=== PATIENT | female | born 1960 | race Caucasian/White ===

== ENCOUNTER 2020-09-28 13:34 | Outpatient (REF) | payer OTHER, SELFPAY ==
[2020-09-28 16:47] LABS: MANUAL DIFF FLAG NO
[2020-09-28 16:52] LABS: Basophils Percent Auto 0.6 % (0-2); Eosinophils Absolute Auto 0.1 X10*3/uL (0.0-0.4); Eosinophils Percent Auto 2.3 % (0-4); Hematocrit 38.3 % (37-47); Hemoglobin 12.6 g/dl (12.0-16.0); Imm Gran Abs Auto 0.01 X10*3/uL (0.00-0.03); Imm Gran Pct Auto 0.2 % (0.0-0.4); Lymphocytes Percent Auto 40.7 % (20-40); Mean Corpuscular HGB Conc 32.9 g/dl (31.0-35.0); Mean Corpuscular Hemoglobin 30.7 pg (27.0-33.0); Mean Corpuscular Volume 93.4 fL (80-98); Mean Platelet Volume 12.2 fL (9.4-12.3); Monocytes Absolute Auto 0.4 X10*3/uL (0.1-1.2); Monocytes Percent Auto 8.3 % (2-11); Neutrophils Absolute Auto 2.3 X10*3/uL (2.0-8.3); Neutrophils Percent Auto 47.9 % (45-73); Platelet Count 196 X10*3/uL (160-400); Red Cell Distribution Width 12.4 % (11.0-16.0); White Blood Count 4.8 X10*3/uL (4.8-10.8)
== END 2020-09-28 13:35 | disposition home or self-care (01) ==
LOC: HO.HMGCLDS 13:34
PROVIDERS: Visit Provider Internal Medicine Gastroenterology
DX: D72.819 Decreased white blood cell count, unspecified (principal)
CPT/HCPCS: 36415; 85025

== ENCOUNTER 2020-11-03 14:30 | Outpatient (REF) | payer OTHER, SELFPAY ==
[2020-11-03 16:30] LABS: MANUAL DIFF FLAG NO
[2020-11-03 16:34] LABS: Basophils Percent Auto 0.7 % (0-2); Eosinophils Absolute Auto 0.1 X10*3/uL (0.0-0.4); Eosinophils Percent Auto 1.2 % (0-4); Hematocrit 43.3 % (37-47); Imm Gran Abs Auto 0.01 X10*3/uL (0.00-0.03); Imm Gran Pct Auto 0.2 % (0.0-0.4); Lymphocytes Absolute Auto 2.2 X10*3/uL (1.2-4.9); Lymphocytes Percent Auto 39.6 % (20-40); Mean Corpuscular HGB Conc 32.3 g/dl (31.0-35.0); Mean Corpuscular Hemoglobin 30.3 pg (27.0-33.0); Mean Corpuscular Volume 93.7 fL (80-98); Mean Platelet Volume 11.8 fL (9.4-12.3); Monocytes Absolute Auto 0.4 X10*3/uL (0.1-1.2); Monocytes Percent Auto 6.9 % (2-11); Neutrophils Absolute Auto 2.9 X10*3/uL (2.0-8.3); Neutrophils Percent Auto 51.4 % (45-73); Platelet Count 241 X10*3/uL (160-400); Red Blood Count 4.62 X10*6/uL (4.20-5.50); Red Cell Distribution Width 12.3 % (11.0-16.0); White Blood Count 5.6 X10*3/uL (4.8-10.8)
[2020-11-03 16:46] LABS: Alanine Aminotransferase 24 U/L (0-31); Albumin Level 4.8 g/dL (3.5-5.0); Alkaline Phosphatase 71 U/L (39-117); Aspartate Amino Transferase 25 U/L (5-31); Bilirubin Direct 0.4 mg/dL (0.0-0.5); Bilirubin Total 1.2 mg/dL (0.0-1.0); Total Protein 7.8 g/dL (6.5-8.0)
[2020-11-12 02:17] LABS: JCV Antibody POSITIVE; JCV Index Value 0.93
== END 2020-11-03 14:31 | disposition home or self-care (01) ==
LOC: HO.HMGCLDS 14:30
PROVIDERS: PCP Nurse Practitioner Family; Visit Provider Psychiatry & Neurology Neurology
DX: G35 Multiple sclerosis (principal)
CPT/HCPCS: 36415; 80076; 85025; 86711

== ENCOUNTER → 2020-11-22 09:36 | Outpatient (BNVA) | payer OTHER, SELFPAY | PROVIDERS: PCP Nurse Practitioner Family; Visit Provider Internal Medicine Gastroenterology ==

== ENCOUNTER → 2021-05-23 13:01 | Outpatient (BNVA) | payer OTHER, SELFPAY | PROVIDERS: Referring Provider Hospitalist; Visit Provider Internal Medicine Gastroenterology | DX: K21.9 Gastro-esophageal reflux disease without esophagitis (principal); K59.09 Other constipation; R13.14 Dysphagia, pharyngoesophageal phase; G35 Multiple sclerosis ==

== ENCOUNTER → 2021-11-01 13:57 | Outpatient (BNVA) | payer OTHER, SELFPAY | PROVIDERS: PCP Family Medicine; Referring Provider Family Medicine; Visit Provider Internal Medicine Gastroenterology ==

== ENCOUNTER 2022-04-29 10:27 | Outpatient (REF) | payer OTHER, SELFPAY ==
[2022-04-29 10:49] LABS: MANUAL DIFF FLAG NO
[2022-04-29 11:08] LABS: Basophils Percent Auto 0.8 % (0-2); Eosinophils Absolute Auto 0.1 X10*3/uL (0.0-0.4); Eosinophils Percent Auto 2.3 % (0-4); Hematocrit 35.5 % (37.0-47.0); Hemoglobin 11.9 g/dl (12.0-16.0); Imm Gran Abs Auto 0.01 X10*3/uL (0.00-0.03); Imm Gran Pct Auto 0.2 % (0.0-0.4); Lymphocytes Percent Auto 20.7 % (20-40); Mean Corpuscular HGB Conc 33.5 g/dl (31.0-35.0); Mean Corpuscular Hemoglobin 30.2 pg (27.0-33.0); Mean Corpuscular Volume 90.1 fL (80.0-98.0); Mean Platelet Volume 11.2 fL (9.4-12.3); Monocytes Absolute Auto 0.6 X10*3/uL (0.1-1.2); Monocytes Percent Auto 12.9 % (2-11); Neutrophils Percent Auto 63.1 % (45-73); Platelet Count 189 X10*3/uL (160-400); Red Blood Count 3.94 X10*6/uL (4.20-5.50); Red Cell Distribution Width 12.3 % (11.0-16.0); White Blood Count 4.8 X10*3/uL (4.8-10.8)
[2022-04-29 11:57] LABS: Vitamin D 25-OH Total 20.7 ng/mL (>30)
[2022-04-29 14:20] LABS: Iron 38 mcg/dL (30-160); Percent Iron Saturation 12 % (15-50); Total Iron Binding Capacity 317 mcg/dL (228-428); Unsaturated Iron Binding 279 ug/dL
[2022-04-29 14:42] LABS: Ferritin 81 ng/mL (10-250)
[2022-05-01 08:49] LABS: Vitamin B12 247 pg/mL (200-900)
[2022-05-02 22:47] LABS: Zinc 56 mcg/dL (60-130)
== END 2022-04-29 10:28 | disposition home or self-care (01) ==
LOC: HO.LAB 10:27
PROVIDERS: Absent Provider Pediatrics; Visit Provider Internal Medicine Gastroenterology
DX: E53.8 Deficiency of other specified B group vitamins (principal); K21.9 Gastro-esophageal reflux disease without esophagitis; D64.9 Anemia, unspecified
CPT/HCPCS: 36415; 82306; 82607; 82728; 83540; 84630; 85025; 86003

== ENCOUNTER 2022-05-01 07:48 | Outpatient (REF) | payer OTHER, SELFPAY ==
[2022-05-01 12:21] LABS: Alanine Aminotransferase 10 U/L (0-31); Albumin Level 4.1 g/dL (3.5-5.0); Alkaline Phosphatase 61 U/L (39-117); Anion Gap 10 (12-20); Aspartate Amino Transferase 19 U/L (5-31); Bilirubin Total 0.6 mg/dL (0.0-1.0); Blood Urea Nitrogen 13 mg/dL (9-16); Calcium 9.2 mg/dL (8.4-10.2); Carbon Dioxide 29 mmol/L (22-29); Chloride 106 mmol/L (96-108); Cholesterol 207 mg/dL; Estimated Glomerular Filt Rate > 60; Glucose Fasting 93 mg/dL (60-99); HDL Cholesterol 62 mg/dL; LDL Cholesterol Calculated 124 mg/dl; Potassium 3.8 mmol/L (3.3-5.1); Sodium 141 mmol/L (135-145); Triglycerides 107 mg/dL
[2022-05-01 15:13] LABS: Reflex LDLD? No
== END 2022-05-01 07:49 | disposition home or self-care (01) ==
LOC: HO.HMGCLDS 07:48
PROVIDERS: PCP Nurse Practitioner Family; Visit Provider Internal Medicine Gastroenterology
DX: E53.8 Deficiency of other specified B group vitamins (principal); K21.9 Gastro-esophageal reflux disease without esophagitis
CPT/HCPCS: 36415; 80053; 80061

== ENCOUNTER 2023-04-13 14:07 | Outpatient (REF) | payer OTHER, SELFPAY ==
[2023-04-13 14:29] LABS: Hematocrit 32.3 % (37.0-47.0); Hemoglobin 10.5 g/dl (12.0-16.0); Mean Corpuscular HGB Conc 32.5 g/dl (31.0-35.0); Mean Corpuscular Hemoglobin 29.3 pg (27.0-33.0); Mean Corpuscular Volume 90.2 fL (80.0-98.0); Mean Platelet Volume 10.1 fL (9.4-12.3); Platelet Count 210 X10*3/uL (160-400); Red Blood Count 3.58 X10*6/uL (4.20-5.50); Red Cell Distribution Width 12.5 % (11.0-16.0); White Blood Count 5.9 X10*3/uL (4.8-10.8)
[2023-04-13 15:09] LABS: Estimated Glomerular Filt Rate 51
[2023-04-13 15:34] LABS: Vitamin B12 240 pg/mL (200-900); Vitamin D 25-OH Total 18.5 ng/mL (>30)
== END 2023-04-13 14:08 | disposition home or self-care (01) ==
LOC: HO.LAB 14:07
PROVIDERS: PCP Nurse Practitioner Family; Visit Provider Internal Medicine Gastroenterology
DX: D64.9 Anemia, unspecified (principal); E53.8 Deficiency of other specified B group vitamins; E55.9 Vitamin D deficiency, unspecified
CPT/HCPCS: 36415; 82306; 82565; 82607; 85027

== ENCOUNTER → 2023-04-19 08:28 | Outpatient (BNVA) | payer OTHER, SELFPAY | PROVIDERS: PCP Nurse Practitioner Family; Visit Provider Internal Medicine Gastroenterology ==

== ENCOUNTER 2023-10-11 07:55 | Outpatient (REF) | payer OTHER, SELFPAY ==
[2023-10-11 09:35] LABS: MANUAL DIFF FLAG NO
[2023-10-11 10:05] LABS: Basophils Absolute Auto 0.1 X10*3/uL (0.0-0.2); Basophils Percent Auto 0.9 % (0-2); Eosinophils Absolute Auto 0.2 X10*3/uL (0.0-0.4); Eosinophils Percent Auto 2.8 % (0-4); Hematocrit 34.2 % (37.0-47.0); Hemoglobin 11.5 g/dl (12.0-16.0); Imm Gran Abs Auto 0.02 X10*3/uL (0.00-0.03); Imm Gran Pct Auto 0.3 % (0.0-0.4); Lymphocytes Absolute Auto 1.6 X10*3/uL (1.2-4.9); Lymphocytes Percent Auto 24.4 % (20-40); Mean Corpuscular HGB Conc 33.6 g/dl (31.0-35.0); Mean Corpuscular Volume 89.3 fL (80.0-98.0); Mean Platelet Volume 12.2 fL (9.4-12.3); Monocytes Absolute Auto 0.6 X10*3/uL (0.1-1.2); Monocytes Percent Auto 9.5 % (2-11); Neutrophils Absolute Auto 4.1 x10*3/uL (2.0-8.3); Neutrophils Percent Auto 62.1 % (45-73); Platelet Count 210 X10*3/uL (160-400); Red Blood Count 3.83 X10*6/uL (4.20-5.50); Red Cell Distribution Width 12.7 % (11.0-16.0); White Blood Count 6.5 X10*3/uL (4.8-10.8)
[2023-10-11 10:54] LABS: Anion Gap 13 (12-20); Blood Urea Nitrogen 21 mg/dL (9-16); Carbon Dioxide 32 mmol/L (22-29); Chloride 102 mmol/L (96-108); Estimated Glomerular Filt Rate 29; Glucose Random 92 mg/dL (60-115); Iron 58 mcg/dL (30-160); Percent Iron Saturation 19 % (15-50); Potassium 3.4 mmol/L (3.3-5.1); Sodium 144 mmol/L (135-145); Total Iron Binding Capacity 300 mcg/dL (228-428); Unsaturated Iron Binding 242 ug/dL
[2023-10-11 10:59] LABS: Ferritin 113 ng/mL (10-250); TSH reflex Free T4 1.29 uIU/mL (0.32-4.0)
[2023-10-11 11:10] LABS: Vitamin B12 257 pg/mL (200-900)
== END 2023-10-11 07:56 | disposition home or self-care (01) ==
LOC: HO.LAB 07:55
PROVIDERS: PCP Family Medicine; Visit Provider Internal Medicine Gastroenterology
DX: D64.9 Anemia, unspecified (principal); R14.0 Abdominal distension (gaseous); K21.9 Gastro-esophageal reflux disease without esophagitis; K59.09 Other constipation; E53.8 Deficiency of other specified B group vitamins
CPT/HCPCS: 36415; 80048; 82607; 82728; 82746; 83540; 84443; 85025; 86160

== ENCOUNTER 2023-10-11 07:55 | Outpatient (AMB) | payer OTHER, SELFPAY ==
--- NOTE | 2023-10-11 08:01 | A.OFFVIS_ITS ---
Intake Vital Signs 10/11/23 08:11 Height 5 ft 1 in Weight 108 lb BMI 20.4 BP 120/56 L Blood Pressure Location Lt brachial Position Sitting Pulse 58 Intake Visit Reasons: gassy and burping Intake Note: atient follw up for gassy and burping. Patient cc: uncontrolled smelly gassy and denies any other GI issues. Bus Boy Required: No Accompanied by: Self / Same As Patient Allergies lansoprazole Allergy (Severe, Verified 10/11/23 08:00) Back Pain cefprozil [From Cefzil] Adverse Reaction (Mild, Verified 10/11/23 08:00) unknown cephalexin Adverse Reaction (Mild, Verified 10/11/23 08:00) stomach upset azithromycin Adverse Reaction (Unknown, Verified 10/11/23 08:00) stomach upset lisinopril Adverse Reaction (Unknown, Verified 10/11/23 08:00) cough HPI gassy and burping HPI Details GI CLINIC VISIT FOR THIS 63-YEAR-OLD FEMALE FOR FOLLOW-UP OF GERD AND DYSPHAGIA. Patient's Primary Care Physician Is Anam Tomas NP at [facility] and she sees Dr. Dong for her MS. Pt is followed by Cardiology for heart failure related to LBBB. Echocardiogram earlier this year showed EF of 35 to 40% Pt has been unable to tolerate several medications for heart failure. On 08/03/23 @ 18:24 Karla Alves Wrote To Karla Alves (2) Pt called: Complains of constipation and foul smelling flatulance, increased burping, nausea and right sided abdominal pain Has had a few bouts which resolve spontaneously. Lately either has constipation or loose stools I discussed option of trying senna and pt thinks she used it in the past and had some side effects. Pt advised to start taking probiotics ( align or Culturelle). She was advised to increase Miralax to twice a day If symptoms do not improve in 4-6 weeks, patient was advised to call the GI clinic to schedule a follow-up appointment. ?CHRONIC ILLNESSES:?GERD, MULTIPLE SCLEROSIS, HYPOCHOLESTEROLEMIA, Nicotine dependence, unspecified, uncomplicated, Caffeine dependence ?LABS IN [facility]:?01/18/19 NORMAL CBC WITH PLATELET COUNT OF 184, NORMAL CHEM PANEL AND LFTS ? VITAMIN B12 235 IN SEPTEMBER 2017 ?IMAGING STUDIES: 04/2014 Abd US was normal ? 04/2014 UGI showed: ? Small sliding hiatal hernia and gastroesophageal reflux. ?ENDOSCOPIC STUDIES: 12/30/19 EGD showed: ? ESOPHAGUS: Aperistaltic esophagus without stricture or ring. GE junction at 38 cms, small hiatla hernia 38 to 40 cms. ? No esophagitis. Irregular Z line - biopsied to check for Barretts. Bio psies showed reflux and negative for Alberts's. ? STOMACH: Mild diffuse gastric erythema. Biopsies were obtained from the antrum and body of the stomach. ? Decreased peristalsis noted in the stomach. Grade 2 flap valve on retroflexed examination of the cardia. ? Biopsies were negative for H Pylori. ? Plan: ? Continue present medications (Omeprazole at 10 mg PO every other day alternating with Pepcid every other day). Pt was unable to tolerate taking Omeprazole daily. Continues to have intermittent regurgitation. ? Schedule a Gastric Emptying Study to rule out Gastroparesis causing persistent GERD symptoms. ? Patient has an appointment on 01/19/20 in the GI Clinic with Karla Alves M.D ? Above findings were reviewed with the patient and handout on GERD was provided in the discharge area. ?01/2016 EGD AND COLONOSCOPY WERE PERFORMED BY DR. DIEGO: ? GENERAL IMPRESSION:Superficial gastritis. COMMENT:I raised a question of underlying altered motility in this patient. This may needfurther evaluation depending on persistence of symptoms when the patient is re-seen. PROCEDURE IN DETAIL:Digital rectal examination revealed no specific lesion. Video colonoscope wasintroduced without difficulty, it was navigated into the rectosigmoid, sigmoid, upinto the descending colon. At this juncture, there was moderate redun lita.Despite extrinsic pressure, there was still looping of the scope. The patient wasrepositioned on her back. Scope was readily advanced through proximal, descendingcolon, and transverse colon, ascending colon, down into the cecal cap. Appendicealorifice was seen, ileocecal valve was well seen. No mucosal abnormalities wereappreciated. The scope was slowly withdrawn. Good rotational views were had.Anorectal verge was clear. GENERAL IMPRESSION:There were a few minor diverticula noted. Otherwise, the examination was normal. PLAN:The patient will be re-seen in our office. Further evaluation as is appropriate. Repeat colon cancer screening in this individual would be approximately 7 years. ?TODAY'S VISIT Patient cc: uncontrolled smelly gassy and denies any other GI issues. Weekend of 07/28/23 she had several BMs with burping, bloating and gurgling, fatigue. Symptoms continued. Started taking Culturelle once a day which helped the gas and not the diarrhea. Unable to leave the house or stop culturelle Also has had some leakage - feels like colon is in a spasm Kept a log of BMs - days when she goes 4 times, or 6 times or upto 8 times - multiple small BMs without diarrhea. Saw the Neurologist who prescribed the Bentyl 20 mg and has not started taking it. Does not drink milk and no longer can drink coffee. Can have a slice of cheese a day Unable to eat anything till mid afternoon and has been eating less. Has dinner after 6 pm. She was eating ice cream all the time and has not been able to take it. PAST VISIT: Taking Omeprazole and feeling better. Can have uncontrollable gas. Switched to a new medication once a month (instead of every week) for MS Continues to have cardiac issues. Gained 2-3 lbs and has been using Lasix - every other day She was taking pepcid and having diarrhea Continues to have bloating and gas. Feels better in the afternoon. Thinks Avonex injection (takes on the weekend) is causing problems with her stomach and looking at other options with the Neurologist. Prescribed spironolactone 25 mg once a day by the hoop puncher and notes nausea. Taking mostly pepcid for the stomach and trying to work in the Omeprazole - was taking it every 3rd day. Seemed to hurt and not help. She is able to take furosemide without any stomach issues. Seeing a Cardiology PA at [facility] and diagnosed with heart failure. June, noted worsening SOB and dose of carvedilol was doubled BNP was elevated (641) and advised to take furosemide. Lab tests were reviewed - showed anemia - advised to start taking iron every other day. Increase to daily if no problems with constipation. Take MVI and Vitamin B12 Planning to work on taking a healthier diet. Baseline wt is 108. Taking 1/2 tablet of Pepcid daily - once in a while feels acid coming up in her chest. Stopped Omperazole since it was causing bad smelling gas. Resolved after she stopped taking Omeprazole Denies problems with anesthesia in the past, loud snoring or sleep apnea (has intermittent mild snoring). ? Denies major pulmonary problems. ? Denies known FH of colon polyps or colon cancer or GI malignancy. ? Mom had breast cancer and cardiac amyloidosis. ? Dad had skin cancer. Taking Omeprazole 10 mg every other day alternating with Pepcid or TUMs with adquate control of GERD symptoms Taking Miralax for constipation. Notes GI and urinary tracts are more sluggish. Has a BM daily. Feels full and unable to eat a lot at once. Wt is stable. Noted chest pains after her booster shot in 08/2021 for COVID (Moderna) Pt is followed by Dr Velasquezs, Water Valve Repairer at [facility] for Htn and Cardiomyopathy and has a FU appt in Dec, 2021. Continues to have intermittent trouble with chest tightness and shortness of breath. Takes an effort to do her regular chores and going to the grocery store. 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 Seen by Water Valve Repairer for chest pain and had a stress test which was negative. Cardiology evaluation with Echo, stress test. 04/05/21 Cardiac Cath - no stenosis EF was 35% on Echo Diagnosed with non-alcoholic cardiomyopathy - cardiac MRI was negative for amyloidosis (Mom of cardiac amyloidosis). EF was 41% Heart problems related to LBBB - she may need a pacemaker in the future. Denies ETOH use Metoprolol - caused stomach pain & diarrhea Carvedilol - taking at present - makes her feel sluggish, retain water and urinary problems Enteresta - started 2 days ago - had chest tightness and discontinued Blood pressure has usually been 130 ?PAST VISIT: hanging in there New medical issue which is ongoing. Happened while shoveling snow in Oct, 2020 - asthmatic symptoms. Being treated with 2 inhalers and a nasal spray. Tested negative for COVID. Had pulmonary testing at [facility] last week Tried Prevacid and noted back pain. Taking a combination of Omeprazole on alternate days with Pepcid GES results were reviewed with the patient?- [facility] History H/O cardiac catheterization History of endoscopy (12/30/19) Hx of endoscopy History of colonoscopy Family History Father History of heart attack Mother No problems noted. Social History Alcohol intake: never Review of Systems Const All systems reviewed & are unremarkable except as noted in HPI and below Physical Exam Vital Signs: Last Vital Signs Pulse 58 10/11/23 08:11 BP 120/56 L 10/11/23 08:11 BMI result Body Mass Index 20.4 Const General: healthy appearing and no acute distress Nutritional Appearance: average body habitus Orientation/consciousness: patient oriented x3 HEENT Head: Yes normal to inspection Ears: hearing grossly normal bilaterally Eyes Sclerae: sclerae normal Pupils: Equal, round and reactive pupils present Neck Neck: Yes normal visual inspection Chest Chest palpation & inspection: normal inspection of the chest Resp Effort & Inspection: normal respiratory effort Auscultation: clear to auscultation bilaterally Cardio Palpation: normal PMI Rate: regular rate Rhythm: regular rhythm Heart sounds: S1 normal heart sound present, S2 normal heart sound present and no murmurs GI Palpation (GI): Soft to palpation, nontender and No hepatosplenomegaly present Auscultation: normal bowel sounds Rectal Exam - Female: deferred Skin General skin exam: no rashes or lesions noted Neuro General: patient oriented x3, gait normal and moves all extremities Cranial nerves: Yes Equal, round and reactive pupils present Psych Appearance: grossly normal Mental Status: mental status grossly normal Assessment & Plan Assessment & Plan (1) Colon cancer screening: Comment: Colon[place] [address] Diego showed few minor diverticula noted. Otherwise, the examination was normal. Repeat colonoscopy was advised in 7 years - due 2022 (consider a stool cologuard test due to low EF of 35 - 40%) Code(s): Z12.11 - Encounter for screening for malignant neoplasm of colon (2) Anemia: Code(s): D64.9 - Anemia, unspecified (3) Chronic constipation: Code(s): K59.09 - Other constipation (4) Gastroesophageal reflux disease without esophagitis: Code(s): K21.9 - Gastro-esophageal reflux disease without esophagitis (5) Vitamin B12 deficiency: Code(s): E53.8 - Deficiency of other specified B group vitamins (6) Abdominal bloating: Code(s): R14.0 - Abdominal distension (gaseous) Plan 63 YF with GERD, MULTIPLE SCLEROSIS, HYPOCHOLESTEROLEMIA, Htn, Nicotine dependence, unspecified, uncomplicated, Caffeine dependence seen for evaluation dysphagia, regurgitation and constipation. Her symptoms suggest esophageal involvement with MS. Patient was advised a trial of low-dose omeprazole 10 mg daily to see if it would control her symptoms without causing dizziness. She was advised to add Pepcid at night if she continued to have symptoms despite above. 12/30/19 EGD showed a small hiatal hernia, an aperistaltic esophagus without stricture or ring. Esophageal biopsies showed reflux and were negative for Alberts's. STOMACH: Mild diffuse gastric erythema. Biopsies were obtained from the antrum and body of the stomach. Decreased peristalsis noted in the stomach. Biopsies were negative for H Pylori. A gastric emptying study was normal ruling out gastroparesis. She did well with omeprazole for several months and then noted recurrent dizzin ess. Patient tried switching to lansoprazole 15 mg every other day and was unable to tolerate due to back pain. She is taking omeprazole 10 mg every other day alternating with Pepcid 20 mg on alternate days. She takes Miralax once a day for constipation. 04/2023 Labs showed worsening anemia, normal Vitamin B12, low Vitamin D and mild Zinc deficiency. Pt will resume taking iron gummies (which she tolerated in the past) and otc Vitamin D. She was advised to take a MVI 3 times a week for Zinc deficiency. [place] [address] Diego showed few minor diverticula noted. Otherwise, the examination was normal. Repeat colonoscopy was advised in 7 years - due 2022. 04/2023 Stool cologuard test ordered due to low EF of 35 - 40% and has not been submitted yet. 10/11/23 Pt complained of abdominal bloating - possibly due to malabsoprtion or small bowel bacterial overgrowth. She was advised to: 1. Have labs and stool tests to rule out pancreatic insufficiency 2. Take Citrucil twice a day and continue taking the Probiotics. 3. Avoid gas-producing foods (eg, cabbage, legumes, onions, broccoli, brussel sprouts, wheat, and potatoes If above is not helpful, you can start a FODMAP diet Follow-up appointment in 8 weeks. Orders: Orders C1 Inhibitor Protein 10/11/23 R14.0 - Abdominal distension (gaseous) Basic Metabolic Panel 10/11/23 R14.0 - Abdominal distension (gaseous) TSH reflex Free T4 10/11/23 R14.0 - Abdominal distension (gaseous) Complete Blood Count Auto Diff 10/11/23 R14.0 - Abdominal distension (gaseous) Creatinine 10/11/23 R14.0 - Abdominal distension (gaseous) Vitamin B12 and Folate 10/11/23 R14.0 - Abdominal distension (gaseous) IRON PROFILE 10/11/23 R14.0 - Abdominal distension (gaseous) Ferritin 10/11/23 R14.0 - Abdominal distension (gaseous) Pancreatic Elastase-1 10/12/23 R14.0 - Abdominal distension (gaseous) Patient Instructions: Have labs and stool tests Take Citrucil twice a day and continue taking the Probiotics. Avoid gas-producing foods (eg, cabbage, legumes, onions, broccoli, brussel sprouts, wheat, and potatoes If above is not helpful, you can start a FODMAP diet Coding Level of Care Code Est Pt Level 4 (78568) Diagnoses Colon cancer screening Z12.11 Anemia D64.9 Chronic constipation K59.09 Gastroesophageal reflux disease without esophagitis K21.9 Vitamin B12 deficiency E53.8 Abdominal bloating R14.0 Time Spent (min) 23
[2023-10-11 08:11] VITALS: BP 120/56; PULSE 58; BMI 20.4
== END 2023-10-11 08:57 | disposition home or self-care (01) ==
PROVIDERS: Visit Provider Internal Medicine Gastroenterology
DX: Z12.11 Encounter for screening for malignant neoplasm of colon (principal); D64.9 Anemia, unspecified; K59.09 Other constipation; K21.9 Gastro-esophageal reflux disease without esophagitis; E53.8 Deficiency of other specified B group vitamins; R14.0 Abdominal distension (gaseous); Z01.818 Encounter for other preprocedural examination
CPT/HCPCS: 99214

== ENCOUNTER 2023-10-12 15:03 | Outpatient (REF) | payer OTHER, SELFPAY ==
[2023-10-22 20:58] LABS: Pancreatic Elastase-1 >500 mcg/g
== END 2023-10-12 15:04 | disposition home or self-care (01) ==
LOC: HO.LNP 15:03
PROVIDERS: Visit Provider Internal Medicine Gastroenterology
DX: R14.0 Abdominal distension (gaseous) (principal)
CPT/HCPCS: 82656

== ENCOUNTER 2023-11-02 08:51 | Outpatient (REF) | payer OTHER, SELFPAY ==
[2023-11-02 10:21] LABS: Hematocrit 30.7 % (37.0-47.0); Hemoglobin 10.2 g/dl (12.0-16.0); Mean Corpuscular HGB Conc 33.2 g/dl (31.0-35.0); Mean Corpuscular Hemoglobin 30.2 pg (27.0-33.0); Mean Corpuscular Volume 90.8 fL (80.0-98.0); Platelet Count 195 X10*3/uL (160-400); Red Blood Count 3.38 X10*6/uL (4.20-5.50); Red Cell Distribution Width 12.8 % (11.0-16.0); White Blood Count 5.5 X10*3/uL (4.8-10.8)
[2023-11-02 10:50] LABS: Blood Urea Nitrogen 15 mg/dL (9-16); Calcium 10.4 mg/dL (8.4-10.2); Estimated Glomerular Filt Rate 42
== END 2023-11-02 08:52 | disposition home or self-care (01) ==
LOC: HO.LAB 08:51
PROVIDERS: PCP Family Medicine; Visit Provider Internal Medicine Gastroenterology
DX: R79.89 Other specified abnormal findings of blood chemistry (principal); D64.9 Anemia, unspecified
CPT/HCPCS: 36415; 82310; 82565; 84520; 85027

== ENCOUNTER 2023-12-13 08:27 | Outpatient (AMB) | payer OTHER, SELFPAY ==
--- NOTE | 2023-12-13 08:31 | A.OFFVIS_ITS ---
Intake Vital Signs 12/13/23 08:35 Height 5 ft 1 in Weight 104 lb BMI 19.6 Blood Pressure Location Lt brachial Position Sitting Intake Visit Reasons: 8 mnth follow up Intake Note: Patient 8 month follow up for abdominal bloating and lab results. Patient cc: Gassy, a lot of burp, acid reflex is back, constipation and also patient loose weight and she is asking for her Antibiotic. 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 Accompanied by: Self / Same As Patient Allergies lansoprazole Allergy (Severe, Verified 12/13/23 08:34) Back Pain cefprozil [From Cefzil] Adverse Reaction (Mild, Verified 12/13/23 08:34) unknown cephalexin Adverse Reaction (Mild, Verified 12/13/23 08:34) stomach upset azithromycin Adverse Reaction (Unknown, Verified 12/13/23 08:34) stomach upset lisinopril Adverse Reaction (Unknown, Verified 12/13/23 08:34) cough Medication List - Last Reconciled 12/13/23 by Karla Alves MD acetaminophen 500 mg PO ONCE PRN albuterol sulfate 90 mcg/actuation 0 mcg inhalation amlodipine 2.5 mg PO DAILY amoxicillin-pot clavulanate 500-125 mg (Augmentin) 1 tab PO Q12H 10 days carvedilol 12.5 mg PO BID famotidine (Pepcid) 20 mg PO DAILY 90 days furosemide 20 mg PO DAILY Lactobac. rhamnosus GG-inulin 10 billion cell -200 mg ([facility]) caps PO ofatumumab (Kesimpta Pen) 20 mg subcut QWEEK omeprazole 10 mg PO DAILY 90 days polyethylene glycol 3350 (Miralax) 17 grams PO DAILY 90 days rifaximin 550 mg PO BID 14 days zinc sulfate 50 mg PO .twice a week 90 days HPI 8 mnth follow up HPI Details GI CLINIC VISIT FOR THIS 63-YEAR-OLD FEMALE FOR FOLLOW-UP OF GERD AND DYSPHAGIA. Patient's Primary Care Physician Is Anam Tomas NP at [facility] and she sees Dr. Dong for her MS. Pt is followed by Cardiology for heart failure related to LBBB. Echocardiogram earlier this year showed EF of 35 to 40% Pt has been unable to tolerate several medications for heart failure. On 08/03/23 @ 18:24 Karla Alves Wrote To Karla Alves (2) Pt called: Complains of constipation and foul smelling flatulance, increased burping, nausea and right sided abdominal pain Has had a few bouts which resolve spontaneously. Lately either has constipation or loose stools I discussed option of trying senna and pt thinks she used it in the past and had some side effects. Pt advised to start taking probiotics ( align or Culturelle). She was advised to increase Miralax to twice a day If symptoms do not improve in 4-6 weeks, patient was advised to call the GI clinic to schedule a follow-up appointment. ?CHRONIC ILLNESSES:?GERD, MULTIPLE SCLEROSIS, HYPOCHOLESTEROLEMIA, Nicotine dependence, unspecified, uncomplicated, Caffeine dependence ?LABS IN [facility]:?01/18/19 NORMAL CBC WITH PLATELET COUNT OF 184, NORMAL CHEM PANEL AND LFTS ? VITAMIN B12 235 IN SEPTEMBER 2017 ?IMAGING STUDIES: 04/2014 Abd US was normal ? 04/2014 UGI showed: ? Small sliding hiatal hernia and gastroesophageal reflux. ?ENDOSCOPIC STUDIES: 12/30/19 EGD showed: ? ESOPHAGUS: Aperistaltic esophagus without stricture or ring. GE junction at 38 cms, small hiatla hernia 38 to 40 cms. ? No esophagitis. Irregular Z line - biopsied to check for Barretts. Biopsies showed reflux and negative for Alberts's. ? STOMACH: Mild diffuse gastric erythema. Biopsies were obtained from the antrum and body of the stomach. ? Decreased peristalsis noted in the stomach. Grade 2 flap valve on retroflexed examination of the cardia. ? Biopsies were negative for H Pylori. ? Plan: ? Continue present medications (Omeprazole at 10 mg PO every other day alternating with Pepcid every other day). Pt was unable to tolerate taking Omeprazole daily. Continues to have intermittent regurgitation. ? Schedule a Gastric Emptying Study to rule out Gastroparesis causing persistent GERD symptoms. ? Patient has an appointment on 01/19/20 in the GI Clinic with Karla Alves M.D ? Above findings were reviewed with the patient and handout on GERD was provided in the discharge area. ?01/2016 EGD AND COLONOSCOPY WERE PERFORMED BY DR. DIEGO: ? GENERAL IMPRESSION:Superficial gastritis. COMMENT:I raised a question of underlying altered motility in this patient. This may needfurther evaluation depending on persistence of symptoms when the patient is re-seen. PROCEDURE IN DETAIL:Digital rectal examination revealed no specific lesion. Video colonoscope wasintroduced without difficulty, it was navigated into the rectosigmoid, sigmoid, upinto the descending colon. At this juncture, there was moderate redundancy.Despite extrinsic pressure, there was still looping of the scope. The patient wasrepositioned on her back. Scope was readily advanced through proximal, descendingcolon, and transverse colon, ascending colon, down into the cecal cap. Appendicealorifice was seen, ileocecal valve was well seen. No mucosal abnormalities wereappreciated. The scope was slowly withdrawn. Good rotational views were had.Anorectal verge was clear. GENERAL IMPRESSION:There were a few minor diverticula noted. Otherwise, the examination was normal. PLAN:The patient will be re-seen in our office. Further evaluation as is appropriate. Repeat colon cancer screening in this individual would be approximately 7 years. ?TODAY'S VISIT Patient cc: Gassy, a lot of burp, acid reflex is back, constipation and also patient loose weight and she is asking for her Antibiotic. the antibiotic helped me a great deal Feels her symptoms are begining to come back Has been the worst thing that has affected her. Notes upset stomach after eating certain foods - ice cream, jello with peaches and cheeses Denies diarrhea with milk products. Not eating ice-cream or jello with peaches any more Taking much less TUMS Planning to resume taking multivitamins Unable to eat till 4 pm. Tries to eat crackers, saltines and pop tarts. BMs a little bit bigger. Many times she has multiple small bowel movements. Taking Miralax once a day at night. Taking Omeprazole every other day alternating with pepcid. PAST VISITS: Weekend of 07/28/23 she had several BMs with burping, bloating and gurgling, fati sean. Symptoms continued. Started taking Culturelle once a day which helped the gas and not the diarrhea. Unable to leave the house or stop culturelle Also has had some leakage - feels like colon is in a spasm Kept a log of BMs - days when she goes 4 times, or 6 times or upto 8 times - multiple small BMs without diarrhea. Saw the Neurologist who prescribed the Bentyl 20 mg and has not started taking it. Does not drink milk and no longer can drink coffee. Can have a slice of cheese a day Unable to eat anything till mid afternoon and has been eating less. Has dinner after 6 pm. She was eating ice cream all the time and has not been able to take it. Taking Omeprazole and feeling better. Can have uncontrollable gas. Switched to a new medication once a month (instead of every week) for MS Continues to have cardiac issues. Gained 2-3 lbs and has been using Lasix - every other day She was taking pepcid and having diarrhea Continues to have bloating and gas. Feels better in the afternoon. Thinks Avonex injection (takes on the weekend) is causing problems with her stomach and looking at other options with the Neurologist. Prescribed spironolactone 25 mg once a day by the estimator and drafter and notes nausea. Taking mostly pepcid for the stomach and trying to work in the Omeprazole - was taking it every 3rd day. Seemed to hurt and not help. She is able to take furosemide without any stomach issues. Seeing a Cardiology PA at [facility] and diagnosed with heart failure. June, noted worsening SOB and dose of carvedilol was doubled BNP was elevated (641) and advised to take furosemide. Lab tests were reviewed - showed anemia - advised to start taking iron every other day. Increase to daily if no problems with constipation. Take MVI and Vitamin B12 Planning to work on taking a healthier diet. Baseline wt is 108. Taking 1/2 tablet of Pepcid daily - once in a while feels acid coming up in her chest. Stopped Omperazole since it was causing bad smelling gas. Resolved after she stopped taking Omeprazole Denies problems with anesthesia in the past, loud snoring or sleep apnea (has intermittent mild snoring). ? Denies major pulmonary problems. ? Denies known FH of colon polyps or colon cancer or GI malignancy. ? Mom had breast cancer and cardiac amyloidosis. ? Dad had skin cancer. Taking Omeprazole 10 mg every other day alternating with Pepcid or TUMs with adquate control of GERD symptoms Taking Miralax for constipation. Notes GI and urinary tracts are more sluggish. Has a BM daily. Feels full and unable to eat a lot at once. Wt is stable. Noted chest pains after her booster shot in 08/2021 for COVID (Moderna) Pt is followed by Dr Buchanan, Cable Installation Technician at [facility] for Htn and Cardiomyopathy and has a FU appt in Dec, 2021. Continues to have intermittent trouble with chest tightness and shortness of breath. Takes an effort to do her regular chores and going to the grocery store. 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 Seen by Cable Installation Technician for chest pain and had a stress test which was negative. Cardiology evaluation with Echo, stress test. 04/05/21 Cardiac Cath - no stenosisEF was 35% on Echo Diagnosed with non-alcoholic cardiomyopathy - cardiac MRI was negative for amyloidosis (Mom of cardiac amyloidosis). EF was 41% Heart problems related to LBBB - she may need a pacemaker in the future. Denies ETOH use Metoprolol - caused stomach pain & diarrhea Carvedilol - taking at present - makes her feel sluggish, retain water and urinary problems Enteresta - started 2 days ago - had chest tightness and discontinued Blood pressure has usually been 130 ?PAST VISIT: hanging in there New medical issue which is ongoing. Happened while shoveling snow in Oct, 2020 - asthmatic symptoms. Being treated with 2 inhalers and a nasal spray. Tested negative for COVID. Had pulmonary testing at [facility] last week Tried Prevacid and noted back pain. Taking a combination of Omeprazole on alternate days with Pepcid GES results were reviewed with the patient?- normal [facility] Surgical History H/O cardiac catheterization History of endoscopy (12/30/19) Hx of endoscopy History of colonoscopy Family History Father History of heart attack Mother No problems noted. Social History Alcohol intake: never Review of Systems Const All systems reviewed & are unremarkable except as noted in HPI and below Physical Exam Vital Signs: BMI result Body Mass Index 19.6 Const General: no acute distress Nutritional Appearance: underweight Orientation/consciousness: patient oriented x3 HEENT Head: Yes normal to inspection Ears: hearing grossly normal bilaterally Eyes Sclerae: sclerae normal Pupils: Equal, round and reactive pupils present Neck Neck: Yes normal visual inspection Chest Chest palpation & inspection: normal inspection of the chest Resp Effort & Inspection: normal respiratory effort Auscultation: clear to auscultation bilaterally Cardio Palpation: normal PMI Rate: regular rate Rhythm: regular rhythm Heart sounds: S1 normal heart sound present, S2 normal heart sound present and no murmurs GI Palpation (GI): Soft to palpation, nontender and No hepatosplenomegaly present Auscultation: normal bowel sounds Rectal Exam - Female: deferred Skin General skin exam: no rashes or lesions noted Neuro General: patient oriented x3, gait normal and moves all extremities Cranial nerves: Yes Equal, round and reactive pupils present Psych Appearance: grossly normal Mental Status: mental status grossly normal Assessment & Plan Assessment & Plan (1) Small intestinal bacterial overgrowth: Code(s): K63.8219 - Small intestinal bacterial overgrowth, unspecified (2) Abdominal bloating: Code(s): R14.0 - Abdominal distension (gaseous) (3) Colon cancer screening: Comment: Colonoscopy [place] [address] Diego showed few minor diverticula noted. Otherwise, the examination was normal. Repeat colonoscopy was advised in 7 years - due 2022 (consider a stool cologuard test due to low EF of 35 - 40%) Code(s): Z12.11 - Encounter for screening for malignant neoplasm of colon (4) Anemia: Code(s): D64.9 - Anemia, unspecified (5) Chronic constipation: Code(s): K59.09 - Other constipation (6) Gastroesophageal reflux disease without esophagitis: Code(s): K21.9 - Gastro-esophageal reflux disease without esophagitis (7) Vitamin B12 deficiency: Code(s): E53.8 - Deficiency of other specified B group vitamins Plan 63 YF with GERD, MULTIPLE SCLEROSIS, HYPOCHOLESTEROLEMIA, Htn, Nicotine dependence, unspecified, uncomplicated, Caffeine dependence seen for evaluation dysphagia, regurgitation and constipation. Her symptoms suggest esophageal involvement with MS. Patient was advised a trial of low-dose omeprazole 10 mg daily to see if it would control her symptoms without causing dizziness. She was advised to add Pepcid at night if she continued to have symptoms despite above. 2/25/20 EGD showed a small hiatal hernia, an aperistaltic esophagus without stricture or ring. Esophageal biopsies showed reflux and were negative for Alberts's. STOMACH: Mild diffuse gastric erythema. Biopsies were obtained from the antrum and body of the stomach. Decreased peristalsis noted in the stomach. Biopsies were negative for H Pylori. A gastric emptying study was normal ruling out gastroparesis. She did well with omeprazole for several months and then noted recurrent dizziness. Patient tried switching to lansoprazole 15 mg every other day and was unable to tolerate due to back pain. She is taking omeprazole 10 mg every other day alternating with Pepcid 20 mg on alternate days. She takes Miralax once a day for constipation. 04/2023 Labs showed worsening anemia, normal Vitamin B12, low Vitamin D and mild Zinc deficiency. Pt will resume taking iron gummies (which she tolerated in the past) and otc Vitamin D. She was advised to take a MVI 3 times a week for Zinc deficiency. [place] [address] Diego showed few minor diverticula noted. Otherwise, the examination was normal. Repeat colonoscopy was advised in 7 years - due 2022. 04/2023 Stool cologuard test ordered due to low EF of 35 - 40% and has not been submitted yet. 10/11/23 Pt complained of abdominal bloating - possibly due to malabsoprtion or small bowel bacterial overgrowth. She was advised to: 1. Have labs and stool tests to rule out pancreatic insufficiency 2. Take Citrucil twice a day and continue taking the Probiotics. 3. Avoid gas-producing foods (eg, cabbage, legumes, onions, broccoli, brussel sprouts, wheat, and potatoes If above is not helpful, you can start a FODMAP diet 12/13/23 the antibiotic helped me a great deal Feels her symptoms are beginning to come back Has been the worst thing that has affected her. Pt was advised to avoid foods precipitating her symptoms. Use dorian tea and peppermint oil. Schedule an abdominal CT scan and check stool for fat Monson with antibiotics for suspected SIBO in 2- 3 months if symptoms become worse Follow-up appointment in 3 months Orders: Orders Fecal Fat Qualitative 12/13/23 K63.8219 - Small intestinal bacterial overgrowth, unspecified CT abdomen pelvis wo IV con 12/13/23 D64.9 - Anemia, unspecified, K63.8219 - Small intestinal bacterial overgrowth, unspecified, R14.0 - Abdominal distension (gaseous) Coding Level of Care Code Est Pt Level 4 (25145) Diagnoses Small intestinal bacterial overgrowth K63.8219 Abdominal bloating R14.0 Colon cancer screening Z12.11 Anemia D64.9 Chronic constipation K59.09 Gastroesophageal reflux disease without esophagitis K21.9 Vitamin B12 deficiency E53.8 Time Spent (min) 19
[2023-12-13 08:35] VITALS: BMI 19.6
== END 2023-12-13 09:24 | disposition home or self-care (01) ==
PROVIDERS: PCP Nurse Practitioner Family; Visit Provider Internal Medicine Gastroenterology
DX: K63.8219 Small intestinal bacterial overgrowth, unspecified (principal); R14.0 Abdominal distension (gaseous); Z12.11 Encounter for screening for malignant neoplasm of colon; D64.9 Anemia, unspecified; K59.09 Other constipation; K21.9 Gastro-esophageal reflux disease without esophagitis; E53.8 Deficiency of other specified B group vitamins
CPT/HCPCS: 99214

== ENCOUNTER → 2023-12-13 08:27 | Outpatient (BNVA) | payer OTHER, SELFPAY | PROVIDERS: PCP Nurse Practitioner Family; Visit Provider Internal Medicine Gastroenterology ==

== ENCOUNTER 2024-01-07 14:49 | Outpatient (REF) | payer OTHER, SELFPAY ==
[2024-01-12 00:14] LABS: Fecal Fat Qualitative Normal (Normal)
== END 2024-01-07 14:50 | disposition home or self-care (01) ==
LOC: HO.LNP 14:49
PROVIDERS: Visit Provider Internal Medicine Gastroenterology
DX: K63.8219 Small intestinal bacterial overgrowth, unspecified (principal)
CPT/HCPCS: 82705

== ENCOUNTER 2024-01-17 14:26 | Outpatient (REF) | payer OTHER, SELFPAY ==
--- NOTE | ~2024-01-17 | CT_ITS ---
EXAMINATION: CT ABDOMEN AND PELVIS WITHOUT CONTRAST CLINICAL INFORMATION: Small intestinal bacterial overgrowth. COMPARISON: None available. TECHNIQUE: Multidetector volumetric imaging was performed from the superior aspect of the liver through the pubic symphysis. Sagittal and coronal reformatted images were obtained on the technologist's workstation. This CT examination was performed using dose optimization techniques as appropriate, variously including the following: *Automated exposure control *Adjustment of mA and/or kV according to patient size (this includes techniques or standardized protocols for targeted exams where dose is matched to indication/reason for exam; i.e. extremities or head) *Use of iterative reconstruction technique DLP: 290 mGy-cm FINDINGS: LUNG BASES: The visualized lung bases are unremarkable. LIVER, GALLBLADDER, AND BILIARY TREE: The liver is normal in size, shape, and attenuation. No focal hepatic lesion or biliary ductal dilatation is present. The gallbladder is unremarkable with no evidence of radiopaque gallstones, gallbladder wall thickening, or obvious pericholecystic inflammatory changes. PANCREAS: Unremarkable. SPLEEN: Unremarkable. ADRENAL GLANDS: Unremarkable. KIDNEYS AND URETERS: The kidneys are normal in size, shape, and attenuation. 2 small punctate nonobstructing calculi are seen at the lower pole of the left kidney with a barely perceptible calculus seen at the lower pole on the right (see reyes images). No hydronephrosis, hydroureter, or ureteral calculi seen. No perinephric stranding. BLADDER: Unremarkable. GASTROINTESTINAL TRACT: The small and large bowel are unremarkable. The appendix is not seen but there is no evidence of appendicitis. ABDOMINAL WALL: No significant hernia is appreciated. There is a tiny periumbilical hernia seen containing only fat. LYMPH NODES: No retroperitoneal lymphadenopathy. VASCULAR: Minimal calcific atherosclerotic changes are present in the aorta and iliac vessels. There is no evidence of an abdominal aortic aneurysm. PELVIC VISCERA: The retroverted uterus and adnexa are unremarkable. OSSEOUS STRUCTURES: Degenerative changes seen at L5-S1 with marked grade 1 anterolisthesis of L5 upon S1. CT/CT abdomen pelvis wo IV con IMPRESSION: A cause for the patient's small intestinal bacterial overgrowth has not been found. Incidental note made of nonobstructing bilateral small renal calculi and degenerative changes L5-S1 with grade 1 anterolisthesis. Fleischner guidelines were followed.
[2024-01-17] MEDS: Barium Sulfate Oral (Vanilla) 450 ML ORAL.SUSP PO (16:45)
== END 2024-01-17 14:27 | disposition home or self-care (01) ==
LOC: HO.CT 14:26
PROVIDERS: PCP Nurse Practitioner Family; Visit Provider Internal Medicine Gastroenterology
DX: K63.8219 Small intestinal bacterial overgrowth, unspecified (principal); R14.0 Abdominal distension (gaseous); D64.9 Anemia, unspecified
CPT/HCPCS: 74176

== ENCOUNTER 2024-03-20 07:56 | Outpatient (AMB) | payer OTHER, SELFPAY ==
--- NOTE | 2024-03-20 08:02 | MHC.OFFVIS ---
Vital Signs 03/20/24 08:06 Height 5 ft 1 in Weight 103 lb BMI 19.5 BP 130/64 Blood Pressure Location Lt brachial Position Sitting Pulse 61 Intake Visit Reasons: 3 month follow up Intake Note: Patient 3 month follow up for acid reflex and abdominal pain Patient cc: acid reflex on and off, constipation on and off. Patient is taking antibiotic and is helping her. Company Accountant Required: No Accompanied by: Self / Same As Patient Allergies lansoprazole Allergy (Severe, Verified 07/25/24 15:07) Back Pain cefprozil [From Cefzil] Adverse Reaction (Mild, Verified 07/25/24 15:07) unknown cephalexin Adverse Reaction (Mild, Verified 07/25/24 15:07) stomach upset azithromycin Adverse Reaction (Unknown, Verified 07/25/24 15:07) stomach upset lisinopril Adverse Reaction (Unknown, Verified 07/25/24 15:07) cough HPI HPI 3 month follow up: Details: GI CLINIC VISIT FOR THIS 63-YEAR-OLD FEMALE FOR FOLLOW-UP OF GERD AND DYSPHAGIA. Patient's Primary Care Physician Is Anam Tomas NP at [facility] and she sees Dr. Dong for her MS. Pt is followed by Cardiology for heart failure related to LBBB. Echocardiogram earlier this year showed EF of 35 to 40% Pt has been unable to tolerate several medications for heart failure. On 08/03/23 @ 18:24 Karla Alves Wrote To Karla Alves (2) Pt called: Complains of constipation and foul smelling flatulance, increased burping, nausea and right sided abdominal pain Has had a few bouts which resolve spontaneously. Lately either has constipation or loose stools I discussed option of trying senna and pt thinks she used it in the past and had some side effects. Pt advised to start taking probiotics ( align or Culturelle). She was advised to increase Miralax to twice a day If symptoms do not improve in 4-6 weeks, patient was advised to call the GI clinic to schedule a follow-up appointment. ?CHRONIC ILLNESSES:?GERD, MULTIPLE SCLEROSIS, HYPOCHOLESTEROLEMIA, Nicotine dependence, unspecified, uncomplicated, Caffeine dependence ?LABS IN [facility]:?01/18/19 NORMAL CBC WITH PLATELET COUNT OF 184, NORMAL CHEM PANEL AND LFTS ? VITAMIN B12 235 IN SEPTEMBER 2017 ?IMAGING STUDIES: 04/2014 Abd US was normal ? 04/2014 UGI showed: ? Small sliding hiatal hernia and gastroesophageal reflux. ?ENDOSCOPIC STUDIES: 12/30/19 EGD showed: ? ESOPHAGUS: Aperistaltic esophagus without stricture or ring. GE junction at 38 cms, small hiatla hernia 38 to 40 cms. ? No esophagitis. Irregular Z line - biopsied to check for Barretts. Biopsies showed reflux and negative for Alberts's. ? STOMACH: Mild diffuse gastric erythema. Biopsies were obtained from the antrum and body of the stomach. ? Decreased peristalsis noted in the stomach. Grade 2 flap valve on retroflexed examination of the cardia. ? Biopsies were negative for H Pylori. ? Plan: ? Continue present medications (Omeprazole at 10 mg PO every other day alternating with Pepcid every other day). Pt was unable to tolerate taking Omeprazole daily. Continues to have intermittent regurgitation. ? Schedule a Gastric Emptying Study to rule out Gastroparesis causing persistent GERD symptoms. ? Patient has an appointment on 01/19/20 in the GI Clinic with Karla Alves M.D ? Above findings were reviewed with the patient and handout on GERD was provided in the discharge area. ?01/2016 EGD AND COLONOSCOPY WERE PERFORMED BY DR. DIEGO: ? GENERAL IMPRESSION:Superficial gastritis. COMMENT:I raised a question of underlying altered motility in this patient. This may needfurther evaluation depending on persistence of symptoms when the patient is re-seen. PROCEDURE IN DETAIL:Digital rectal examination revealed no specific lesion. Video colonoscope wasintroduced without difficulty, it was navigated into the rectosigmoid, sigmoid, upinto the descending colon. At this juncture, there was moderate redundancy.Despite extrinsic pressure, there was still looping of the scope. The patient wasrepositioned on her back. Scope was readily advanced through proximal, descendingcolon, and transverse colon, ascending colon, down into the cecal cap. Appendicealorifice was seen, ileocecal valve was well seen. No mucosal abnormalities wereappreciated. The scope was slowly withdrawn. Good rotational views were had.Anorectal verge was clear. GENERAL IMPRESSION:There were a few minor diverticula noted. Otherwise, the examination was normal. PLAN:The patient will be re-seen in our office. Further evaluation as is appropriate. Repeat colon cancer screening in this individual would be approximately 7 years. ?TODAY'S VISIT Patient cc: acid reflex on and off, constipation on and off. Patient is taking antibiotic and is helping her. the antibiotic helped me a great deal Started to have a little bit of a stomach upset on 03/05/24 This was followed by gurgling, bloating, abd and back pain, BRAR and foul smelling gas Avoids ice cream, dairy products, high fructose corn syrup Some days she is able to have a BM daily and some days she can have frequent small BMs Had a back up in 2016 and symptoms started since then. Takes Miralax daily. Has been taking Culturelle and plans to take Align for the next few months She would like to do the breath test. PAST VISITS: Feels her symptoms are begining to come back Has been the worst thing that has affected her. Notes upset stomach after eating certain foods - ice cream, jello with peaches and cheeses Denies diarrhea with milk products. Not eating ice-cream or jello with peaches any more Taking much less TUMS Planning to resume taking multivitamins Unable to eat till 4 pm. Tries to eat crackers, saltines and pop tarts. BMs a little bit bigger. Many times she has multiple small bowel movements. Taking Miralax once a day at night. Taking Omeprazole every other day alternating with pepcid. PAST VISITS: Weekend of 07/28/23 she had several BMs with burping, bloating and gurgling, fatigue. Symptoms continued. Started taking Culturelle once a day which helped the gas and not the diarrhea. Unable to leave the house or stop culturelle Also has had some leakage - feels like colon is in a spasm Kept a log of BMs - days when she goes 4 times, or 6 times or upto 8 times - multiple small BMs without diarrhea. Saw the Neurologist who prescribed the Bentyl 20 mg and has not started taking it. Does not drink milk and no longer can drink coffee. Can have a slice of cheese a day Unable to eat anything till mid afternoon and has been eating less. Has dinner after 6 pm. She was eating ice cream all the time and has not been able to take it. Taking Omeprazole and feeling better. Can have uncontrollable gas. Switched to a new medication once a month (instead of every week) for MS Continues to have cardiac issues. Gained 2-3 lbs and has been using Lasix - every other day She was taking pepcid and having diarrhea Continues to have bloating and gas. Feels better in the afternoon. Thinks Avonex injection (takes on the weekend) is causing problems with her stomach and looking at other options with the Neurologist. Prescribed spironolactone 25 mg once a day by the wardrobe attendant and notes nausea. Taking mostly pepcid for the stomach and trying to work in the Omeprazole - was taking it every 3rd day. Seemed to hurt and not help. She is able to take furosemide without any stomach issues. Seeing a Cardiology PA at [facility] and diagnosed with heart failure. June, noted worsening SOB and dose of carvedilol was doubled BNP was elevated (641) and advised to take furosemide. Lab tests were reviewed - showed anemia - advised to start taking iron every other day. Increase to daily if no problems with constipation. Take MVI and Vitamin B12 Planning to work on taking a healthier diet. Baseline wt is 108. Taking 1/2 tablet of Pepcid daily - once in a while feels acid coming up in her chest. Stopped Omperazole since it was causing bad smelling gas. Resolved after she stopped taking Omeprazole Denies problems with anesthesia in the past, loud snoring or sleep apnea (has intermittent mild snoring). ? Denies major pulmonary problems. ? Denies known FH of colon polyps or colon cancer or GI malignancy. ? Mom had breast cancer and cardiac amyloidosis. ? Dad had skin cancer. Taking Omeprazole 10 mg every other day alternating with Pepcid or TUMs with adquate control of GERD symptoms Taking Miralax for constipation. Notes GI and urinary tracts are more sluggish. Has a BM daily. Feels full and unable to eat a lot at once. Wt is stable. Noted chest pains after her booster shot in 08/2021 for COVID (Moderna) Pt is followed by Dr Zambrano's, [employer] at [facility] for Htn and Cardiomyopathy and has a FU appt in Dec, 2021. Continues to have intermittent trouble with chest tightness and shortness of breath. Takes an effort to do her regular chores and going to the grocery store. 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 Seen by [employer] for chest pain and had a stress test which was negative. Cardiology evaluation with Echo, stress test. 04/05/21 Cardiac Cath - no stenosisEF was 35% on EchoDiagnosed with non-alcoholic cardiomyopathy - cardiac MRI was negative for amyloidosis (Mom of cardiac amyloidosis). EF was 41% Heart problems related to LBBB - she may need a pacemaker in the future. Denies ETOH use Metoprolol - caused stomach pain & diarrhea Carvedilol - taking at present - makes her feel sluggish, retain water and urinary problems Enteresta - started 2 days ago - had chest tightness and discontinued Blood pressure has usually been 130 ?PAST VISIT: hanging in there New medical issue which is ongoing. Happened while shoveling snow in Oct, 2020 - asthmatic symptoms. Being treated with 2 inhalers and a nasal spray. Tested negative for COVID. Had pulmonary testing at [facility] last week Tried Prevacid and noted back pain. Taking a combination of Omeprazole on alternate days with Pepcid GES results were reviewed with the patient?- normal [facility] Medical History Multiple sclerosis Gastroesophageal reflux disease without esophagitis Hypercholesterolemia LBBB (left bundle branch block) Cardiomyopathy Hypertension Anemia Small intestinal bacterial overgrowth Surgical History H/O cardiac catheterization History of endoscopy (12/30/19) Hx of endoscopy History of colonoscopy Family History Father History of heart attack Mother No problems noted. Social History Alcohol intake: never Review of Systems Const All systems reviewed & are unremarkable except as noted in HPI and below Physical Exam Vital Signs: Last Vital Signs Pulse 61 03/20/24 08:06 BP 130/64 03/20/24 08:06 BMI result Body Mass Index 19.5 Const General: healthy appearing and no acute distress Nutritional Appearance: underweight Orientation/consciousness: patient oriented x3 Limitations: no limitations HEENT Head: Yes normal to inspection Ears: hearing grossly normal bilaterally Eyes Sclerae: sclerae normal Pupils: Equal, round and reactive pupils present Neck Neck: Yes normal visual inspection Chest Chest palpation & inspection: normal inspection of the chest Resp Effort & Inspection: normal respiratory effort Auscultation: clear to auscultation bilaterally Cardio Palpation: normal PMI Rate: regular rate Rhythm: regular rhythm Heart sounds: S1 normal heart sound present, S2 normal heart sound present and no murmurs GI Palpation (GI): Soft to palpation, nontender and No hepatosplenomegaly present Auscultation: normal bowel sounds Rectal Exam - Female: deferred Skin General skin exam: no rashes or lesions noted Neuro General: patient oriented x3, gait normal and moves all extremities Cranial nerves: Yes Equal, round and reactive pupils present Psych Appearance: grossly normal Mental Status: mental status grossly normal Assessment & Plan Assessment & Plan (1) Vitamin B12 deficiency: Code(s): E53.8 - Deficiency of other specified B group vitamins Category: Medical (2) Gastroesophageal reflux disease without esophagitis: Code(s): K21.9 - Gastro-esophageal reflux disease without esophagitis Category: Medical (3) Chronic constipation: Code(s): K59.09 - Other constipation Category: Medical (4) Colon cancer screening: Comment: Colonoscopy [place] [address] Diego showed few minor diverticula noted. Otherwise, the examination was normal. Repeat colonoscopy was advised in 7 years - due 2022 (consider a stool cologuard test due to low EF of 35 - 40%) Code(s): Z12.11 - Encounter for screening for malignant neoplasm of colon Category: Medical (5) Abdominal bloating: Code(s): R14.0 - Abdominal distension (gaseous) Category: Medical (6) Small intestinal bacterial overgrowth: Code(s): K63.8219 - Small intestinal bacterial overgrowth, unspecified Category: Medical Plan 63 YF with GERD, MULTIPLE SCLEROSIS, HYPOCHOLESTEROLEMIA, Htn, Nicotine dependence, unspecified, uncomplicated, Caffeine dependence seen for evaluation dysphagia, regurgitation and constipation. Her symptoms suggest esophageal involvement with MS. Patient was advised a trial of low-dose omeprazole 10 mg daily to see if it would control her symptoms without causing dizziness. She was advised to add Pepcid at night if she continued to have symptoms despite above. 12/30/19 EGD showed a small hiatal hernia, an aperistaltic esophagus without stricture or ring. Esophageal biopsies showed reflux and were negative for Alberts's. STOMACH: Mild diffuse gastric erythema. Biopsies were obtained from the antrum and body of the stomach. Decreased peristalsis noted in the stomach. Biopsies were negative for H Pylori. A gastric emptying study was normal ruling out gastroparesis. She did well with omeprazole for several months and then noted recurrent dizziness. Patient tried switching to lansoprazole 15 mg every other day and was unable to tolerate due to back pain. She is taking omeprazole 10 mg every other day alternating with Pepcid 20 mg on alternate days. She takes Miralax once a day for constipation. 04/2023 Labs showed worsening anemia, normal Vitamin B12, low Vitamin D and mild Zinc deficiency. Pt will resume taking iron gummies (which she tolerated in the past) and otc Vitamin D. She was advised to take a MVI 3 times a week for Zinc deficiency. Colonoscopy [place] [address] Diego showed few minor diverticula noted. Otherwise, the examination was normal. Repeat colonoscopy was advised in 7 years - due 2022. 04/2023 Stool cologuard test ordered due to low EF of 35 - 40% and has not been submitted yet. 10/11/23 Pt complained of abdominal bloating - possibly due to malabsoprtion or small bowel bacterial overgrowth. She was advised to: 1. Have labs and stool tests to rule out pancreatic insufficiency 2. Take Citrucil twice a day and continue taking the Probiotics. 3. Avoid gas-producing foods (eg, cabbage, legumes, onions, broccoli, brussel sprouts, wheat, and potatoes If above is not helpful, you can start a FODMAP diet 12/13/23 the antibiotic helped me a great deal Feels her symptoms are beginning to come back Has been the worst thing that has affected her. Pt was advised to avoid foods precipitating her symptoms. Use dorian tea and peppermint oil. 01/[address] scan showed: A cause for the patient's small intestinal bacterial overgrowth has not been found. Incidental note made of nonobstructing bilateral small renal calculi and degenerative changes L5-S1 with grade 1 anterolisthesis. Stool Cologuard test was negative and stool fat was normal [place] with antibiotics for suspected SIBO in 2- 3 months if symptoms become worse 03/20/24 Takes Miralax daily. Has been taking Culturelle and plans to take Align for the next few months She would like to do the breath test. Follow-up appointment in 4 months Coding Level of Care Code Est Pt Level 4 (22214) Diagnoses Vitamin B12 deficiency E53.8 Gastroesophageal reflux disease without esophagitis K21.9 Chronic constipation K59.09 Colon cancer screening Z12.11 Abdominal bloating R14.0 Small intestinal bacterial overgrowth K63.8219 Time Spent (min) 21
[2024-03-20 08:06] VITALS: BP 130/64; PULSE 61; BMI 19.5
== END 2024-03-20 08:38 | disposition home or self-care (01) ==
PROVIDERS: PCP Nurse Practitioner Family; Visit Provider Internal Medicine Gastroenterology
DX: E53.8 Deficiency of other specified B group vitamins (principal); K21.9 Gastro-esophageal reflux disease without esophagitis; K59.09 Other constipation; Z12.11 Encounter for screening for malignant neoplasm of colon; R14.0 Abdominal distension (gaseous); K63.8219 Small intestinal bacterial overgrowth, unspecified
CPT/HCPCS: 99499

== ENCOUNTER → 2024-03-20 07:56 | Outpatient (BNVA) | payer OTHER, SELFPAY | PROVIDERS: PCP Nurse Practitioner Family; Visit Provider Internal Medicine Gastroenterology ==

== ENCOUNTER 2024-05-05 00:16 | Emergency (ER) | payer OTHER, SELFPAY ==
--- NOTE | ~2024-05-05 | CT_ITS ---
EXAMINATION: CT ABDOMEN AND PELVIS WITHOUT CONTRAST CLINICAL INFORMATION: L flank pain, dysuria COMPARISON: None available. TECHNIQUE: Multidetector volumetric imaging was performed from the superior aspect of the liver through the pubic symphysis. Sagittal and coronal reformatted images were obtained on the technologist's workstation. This CT examination was performed using dose optimization techniques as appropriate, variously including the following: *Automated exposure control *Adjustment of mA and/or kV according to patient size (this includes techniques or standardized protocols for targeted exams where dose is matched to indication/reason for exam; i.e. extremities or head) *Use of iterative reconstruction technique DLP: 325 mGy-cm FINDINGS: LUNG BASES: The visualized lung bases are unremarkable. LIVER, GALLBLADDER, AND BILIARY TREE: The liver is normal in size, shape, and attenuation. No focal hepatic lesion or biliary ductal dilatation is present. The gallbladder is unremarkable with no evidence of radiopaque gallstones, gallbladder wall thickening, or obvious pericholecystic inflammatory changes. PANCREAS: Unremarkable. SPLEEN: Unremarkable. ADRENAL GLANDS: Unremarkable. KIDNEYS AND URETERS: The kidneys are normal in size, shape, and attenuation. Again seen are 2 right renal calculi measuring 2 mm in diameter, situated in the upper and lower pole calyces. At the left kidney, there is a 3 mm calculus within a lower pole calyx and a 1 mm calculus within the adjacent lower pole calyx. There is mild to moderate left hydroureteronephrosis produced by a 2 mm calculus at the left ureterovesical junction. No right-sided hydronephrosis or hydroureter. BLADDER: Unremarkable. GASTROINTESTINAL TRACT: Stomach, small bowel, and colon are normal in caliber. No bowel wall thickening or surrounding inflammatory changes. Appendix is normal. No intraperitoneal free fluid or free air. ABDOMINAL WALL: There is a small fat-containing umbilical hernia. No bowel involvement. LYMPH NODES: Normal. VASCULAR: Atherosclerotic calcifications are present in the abdominal aorta and iliac arteries. No aneurysmal dilatation. PELVIC VISCERA: The uterus and adnexa are unremarkable. OSSEOUS STRUCTURES: There is grade 2 anterolisthesis of L5 on S1 with marked bilateral facet arthropathy. Moderate to severe degenerative disc disease is present at L5-S1. More mild multilevel degenerative disc disease at other levels. 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 CT/CT abdomen pelvis wo IV con IMPRESSION: 1. A 2 mm calculus at the left ureterovesical junction produces mild to moderate left hydroureteronephrosis. 2. Additional small bilateral renal calculi. 3. Grade 2 anterolisthesis of L5 on S1 with marked bilateral facet arthropathy. Fleischner guidelines were followed.
[2024-05-05 01:07] VITALS: BP 133/71; PULSE 68; RESP 16; TEMP 36.5; O2SAT 99
--- NOTE | 2024-05-05 01:48 | ED_ITS ---
HPI - Female Genitourinary General Chief complaint: Urogenital-Female Stated complaint: allergic reaction to medication Time Seen by Provider: 05/05/24 01:34 Source: patient Mode of arrival: ambulatory Limitations: no limitations History of Present Illness ED Provider: NANCY CASPER Narrative: 63 yo female with PMH of LBBB, HTN, anemia, small intestinal bacterial overgrowth, HLD, MS, GERD - just took her kesimpta shot tonight which she has been on for a year and then about 2 hours later noted dysuria and Lf lank pain. She has frequency as well. She has not had a kidney stone before but has had UTI. She denies fevers, n/v/d. MD elicited complaint: dysuria and flank pain Onset (ago): hour(s) (3) Location of symptoms: flank Severity: moderate Quality of pain: burning Consistency: intermittent Vaginal discharge: none Vaginal bleeding: none Urinary symptoms: Dysuria, Urgency and Frequency Exacerbating factors: urination Relieving factors: none Associated symptoms: denies other symptoms Treatment prior to arrival: none Related Data Home Medications ?Medication ?Instructions ?Recorded ?Confirmed acetaminophen 500 mg capsule 500 mg PO ONCE PRN pain 11/22/20 12/13/23 amlodipine 2.5 mg tablet 2.5 mg PO DAILY 11/22/20 12/13/23 albuterol sulfate 90 mcg/actuation 0 mcg inhalation 10/19/22 12/13/23 aerosol inhaler furosemide 20 mg tablet 20 mg PO DAILY 10/19/22 12/13/23 carvedilol 12.5 mg tablet 12.5 mg PO BID 04/19/23 12/13/23 ofatumumab 20 mg/0.4 mL 20 mg subcut QWEEK 04/19/23 12/13/23 subcutaneous pen injector (Kesimpta Pen) Lactobacillus rhamnosus GG 10 cap PO 10/11/23 12/13/23 billion cell-inulin 200 mg capsule ([facility]) Previous Rx's ?Medication ?Instructions ?Recorded famotidine 20 mg tablet (Pepcid) 20 mg PO DAILY 90 days #45 tabs 05/23/21 polyethylene glycol 3350 17 17 g PO DAILY 90 days #1,530 grams 05/23/21 gram/dose oral powder (Miralax) zinc sulfate 50 mg zinc (220 mg) 50 mg PO .twice a week 90 days #90 05/04/22 capsule caps amoxicillin 500 mg-potassium 1 tab PO Q12H 10 days #20 tabs 10/18/23 clavulanate 125 mg tablet (Augmentin) omeprazole 10 mg capsule,delayed 10 mg PO DAILY 90 days #90 caps 10/23/23 release rifaximin 550 mg tablet 550 mg PO BID 14 days #28 tabs 11/20/23 rifaximin 550 mg tablet 550 mg PO BID 14 days #28 tabs 03/13/24 tamsulosin 0.4 mg capsule 0.4 mg PO DAILY 5 days #5 caps 05/05/24 Allergies Allergy/AdvReac Type Severity Reaction Status Date / Time lansoprazole Allergy Severe Back Pain Verified 05/05/24 01:11 cefprozil [From Cefzil] AdvReac Mild unknown Verified 05/05/24 01:11 cephalexin AdvReac Mild stomach Verified 05/05/24 01:11 upset azithromycin AdvReac Unknown stomach Verified 05/05/24 01:11 upset lisinopril AdvReac Unknown cough Verified 05/05/24 01:11 Review of Systems 2 Review of Systems: Constitutional : No Weight loss, No Fever, No Chills ENT/Mouth : No sore throat, No Rhinorrhea Eyes: No Swelling, No Redness Cardiovascular : No Chest Pain, No SOB, No edema Respiratory : No Cough, No Sputum, No Wheezing Gastrointestinal : no Nausea, no Vomiting, no Diarrhea, positive abdominal Pain, No Hematochezia, No Melena Genitourinary : pos Dysuria, pos Urinary Frequency, No Hematuria, No Urgency Musculoskeletal : No joint pain, No Myalgias, No Joint Swelling Skin : No Skin Lesions, No rash Neuro : No Weakness, No Numbness, No Dizziness, No Headache Psych : No Anxiety/Panic, No Depression All other systems reviewed and are negative. [facility] Past Medical History Attestation statement: The following information was validated with the patient. Source: old records reviewed Medical History Multiple sclerosis Gastroesophageal reflux disease without esophagitis Hypercholesterolemia LBBB (left bundle branch block) Cardiomyopathy Hypertension Anemia Small intestinal bacterial overgrowth Surgical History H/O cardiac catheterization History of endoscopy (12/30/19) Hx of endoscopy History of colonoscopy Family History Family History Father History of heart attack Mother No problems noted. Social History Social History Alcohol intake: never Smoked in Last 30 Days: No Use of substances other than those prescribed or required for medical reasons: No Advance Directives: No Advance Directives Information Provided: No Do you have a plan to hurt others: No Plan Patient : No Physical Exam 2 Vital Signs: Vital Signs: Last Vital Signs Temp 97.7 F 05/05/24 01:07 Pulse 68 05/05/24 01:07 Resp 16 05/05/24 01:07 BP 133/71 05/05/24 01:07 Pulse Ox 99 05/05/24 01:07 O2 Del Method Room Air 05/05/24 01:07 BMI result Body Mass Index 20.0 Appearance: Alert. Oriented X3. No acute distress. Eyes: Pupils equal, round and reactive to light. ENT: Pharynx normal. Neck: Normal inspection. Neck supple. CVS: Normal heart rate and rhythm. Pulses normal. Respiratory: No respiratory distress. Breath sounds normal. Abdomen: Soft and nontender. Skin: Skin warm and dry. Normal skin color. Normal skin turgor. Extremities: No lower extremity edema. No calf ttp Neuro: Oriented X 3. No motor deficit. No sensory deficit. Medical Decision Making Medical Decision Making [facility] Narrative: 63 yo female with PMH of LBBB, HTN, anemia, small intestinal bacterial overgrowth, HLD, MS, GERD here with c/o L flank pain dysuria, frequency at this time will obtain labs, urine, bladder scan shows 3mL so she is not retaining it was abrupt onset will obtain CT scan for renal colic. Differential Diagnosis Differential Diagnoses: The differential diagnosis associated with the presentation includes UTI, renal colic Admission/Observation Consideration of admission/observation: Escalation of care including admission/observation considered no pain, vomiting, fevers, tolerating PO at this time stable for DC Lab Data [facility] Lab Attestation statement: I reviewed the patient's lab results. 05/05/24 02:00 05/05/24 02:00 Labs: Lab Results 05/05/24 05/05/24 Range/Units 01:57 02:00 WBC 7.1 (4.8-10.8) X10*3/uL RBC 4.05 L (4.20-5.50) X10*6/uL Hgb 12.3 D (12.0-16.0) g/dl Hct 36.7 L (37.0-47.0) % MCV 90.6 (80.0-98.0) fL MCH 30.4 (27.0-33.0) pg MCHC 33.5 (31.0-35.0) g/dl RDW 12.9 (11.0-16.0) % Plt Count 208 (160-400) X10*3/uL MPV 11.1 (9.4-12.3) fL Immature Gran % (Auto) 0.1 (0.0-0.4) % Neut % (Auto) 64.1 (45-73) % Lymph % (Auto) 19.5 L (20-40) % Whiteside % (Auto) 8.3 (2-11) % Eos % (Auto) 7.0 H (0-4) % Baso % (Auto) 1.0 (0-2) % Lymph # (Auto) 1.4 (1.2-4.9) X10*3/uL Whiteside # (Auto) 0.6 (0.1-1.2) X10*3/uL Eos # (Auto) 0.5 H (0.0-0.4) X10*3/uL Baso # (Auto) 0.1 (0.0-0.2) X10*3/uL Abs Immat Gran (auto) 0.01 (0.00-0.03) X10*3/uL Absolute Neuts (auto) 4.6 (2.0-8.3) x10*3/uL Absolute Nucleated RBC 0.000 (0.0-0.012) X10*3/uL Nucleated RBC % (auto) 0.0 (0.0-0.2) /100WBC Sodium 143 (135-145) mmol/L Potassium 4.2 (3.3-5.1) mmol/L Chloride 106 (96-108) mmol/L Carbon Dioxide 28 (22-29) mmol/L Anion Gap 13 (12-20) BUN 19 H (9-16) mg/dL Creatinine 1.06 (0.5-1.4) mg/dL Estim Creat Clear Calc 40.4 Estimated GFR 52 Random Glucose 128 H (60-115) mg/dL Calcium 10.1 (8.4-10.2) mg/dL Urine Color Yellow Urine Appearance Turbid Urine pH 8.0 (5.0-9.0) Ur Specific [place] 1.010 (1.005-1.025) Urine Protein Negative (Neg-Trace) mg/dL Urine Glucose (UA) Negative (Negative) mg/dL Urine Ketones Negative (Negative) mg/dL Urine Blood Negative (Negative) Urine Nitrite Negative (Negative) Ur Leukocyte Esterase Small (1+) H (Negative) Urine RBC 0-2 (0-2) /HPF Urine WBC 0-5 (0-5) /HPF Ur Squamous Epith Cells 0-2 (0-2) /HPF Urine Bacteria None Seen (None Seen) Hyaline Casts 0-2 (0-2) /LPF Independent Interpretation I performed an independent interpretation of an: CT Scan (renal colic) Radiology Impression Discussion of test interpretation with radiology: I have reviewed the radiologist's reading. External Record Review External record reviewed: Inpatient record Prescription Management I considered prescription management with: Other Discharge Plan Discharge Clinical Impression: Ureterolithiasis Patient Disposition: Home, Self-Care Instructions: Ureteral Stones (ED) Additional Instructions: return for worsening symptoms like unable to urinate, fevers, vomiting, severe pain can continue your medications stay hydrated and flush out this stone take tylenol or motrin as needed for pain Prescriptions: New tamsulosin 0.4 mg capsule 0.4 mg PO DAILY 5 Days Qty: 5 0RF No Action amoxicillin-pot clavulanate [Augmentin] 500-125 mg tablet 1 tab PO Q12H 10 Days Qty: 20 0RF omeprazole 10 mg capsule,delayed release(DR/EC) 10 mg PO DAILY 90 Days Qty: 90 2RF rifaximin 550 mg tablet 550 mg PO BID 14 Days Qty: 28 0RF rifaximin 550 mg tablet 550 mg PO BID 14 Days Qty: 28 0RF amlodipine 2.5 mg tablet 2.5 mg PO DAILY acetaminophen 500 mg capsule 500 mg PO ONCE PRN (Reason: pain) famotidine [Pepcid] 20 mg tablet 20 mg PO DAILY 90 Days Qty: 45 2RF Rx Instructions: Take every other day alternating with Omeprazole 10 mg every other day polyethylene glycol 3350 [Miralax] 17 gram/dose powder 17 g PO DAILY 90 Days Qty: 1530 2RF zinc sulfate 50 mg zinc (220 mg) capsule 50 mg PO .twice a week 90 Days Qty: 90 1RF furosemide 20 mg tablet 20 mg PO DAILY albuterol sulfate 90 mcg/actuation HFA aerosol inhaler 0 mcg inhalation carvedilol 12.5 mg tablet 12.5 mg PO BID Rx Instructions: must administer with a meal/food Kesimpta Pen 20 mg/0.4 mL pen injector 20 mg subcut QWEEK Rx Instructions: administer at Weeks 0, 1, and 2 of therapy [facility] 10 billion cell -200 mg capsule PO Referrals: Victoriano Crane MD [Physician] - (can call to follow up with urology) Print Language: Bengali
[2024-05-05 02:04] LABS: MANUAL DIFF FLAG NO
[2024-05-05 02:05] LABS: Basophils Absolute Auto 0.1 X10*3/uL (0.0-0.2); Eosinophils Absolute Auto 0.5 X10*3/uL (0.0-0.4); Hematocrit 36.7 % (37.0-47.0); Hemoglobin 12.3 g/dl (12.0-16.0); Imm Gran Abs Auto 0.01 X10*3/uL (0.00-0.03); Imm Gran Pct Auto 0.1 % (0.0-0.4); Lymphocytes Absolute Auto 1.4 X10*3/uL (1.2-4.9); Lymphocytes Percent Auto 19.5 % (20-40); Mean Corpuscular HGB Conc 33.5 g/dl (31.0-35.0); Mean Corpuscular Hemoglobin 30.4 pg (27.0-33.0); Mean Corpuscular Volume 90.6 fL (80.0-98.0); Mean Platelet Volume 11.1 fL (9.4-12.3); Monocytes Absolute Auto 0.6 X10*3/uL (0.1-1.2); Monocytes Percent Auto 8.3 % (2-11); Neutrophils Absolute Auto 4.6 x10*3/uL (2.0-8.3); Neutrophils Percent Auto 64.1 % (45-73); Platelet Count 208 X10*3/uL (160-400); Red Blood Count 4.05 X10*6/uL (4.20-5.50); Red Cell Distribution Width 12.9 % (11.0-16.0); White Blood Count 7.1 X10*3/uL (4.8-10.8)
[2024-05-05 02:06] LABS: Appearance Urine Turbid; Color Urine Yellow; Glucose Urine UA Negative (Negative); Leukocyte Esterase Urine Small (1+) (Negative); Nitrite Urine Negative (Negative); UMIC TRIGGER UACC YES; Urine Blood Negative (Negative); Urine Ketones Negative (Negative); Urine Protein Negative (Neg-Trace)
[2024-05-05 02:18] LABS: Bacteria Urine None Seen (None Seen); Hyaline Casts Urine 0-2 /LPF (0-2); RBC Urine 0-2 /HPF (0-2); Squamous Epithelial Cell Urine 0-2 /HPF (0-2); UACC Culture Trigger YES; WBC Urine 0-5 /HPF (0-5)
[2024-05-05 02:20] LABS: Anion Gap 13 (12-20); Blood Urea Nitrogen 19 mg/dL (9-16); Calcium 10.1 mg/dL (8.4-10.2); Carbon Dioxide 28 mmol/L (22-29); Chloride 106 mmol/L (96-108); Creatinine Clr Calc Pharmacy 40.4; Estimated Glomerular Filt Rate 52; Glucose Random 128 mg/dL (60-115); Potassium 4.2 mmol/L (3.3-5.1); Sodium 143 mmol/L (135-145)
[2024-05-05 03:39] VITALS: BP 133/71; PULSE 68; RESP 16; TEMP 36.5; O2SAT 99
== END 2024-05-05 03:40 | disposition home or self-care (01) ==
PROVIDERS: Emergency Provider Emergency Medicine; PCP Nurse Practitioner Family
DX: N20.1 Calculus of ureter (principal); R10.2 Pelvic and perineal pain; Z79.899 Other long term (current) drug therapy
CPT/HCPCS: 36415; 51798; 74176; 80048; 81001; 85025; 87086; 99284

== ENCOUNTER 2024-07-18 08:15 | Outpatient (REF) | payer OTHER, SELFPAY | END 2024-07-18 08:16 | disposition home or self-care (01) | LOC: HO.MRI 08:15 | PROVIDERS: PCP Family Medicine; Visit Provider Psychiatry & Neurology Neurology | DX: Z13.89 Encounter for screening for other disorder (principal) ==

== ENCOUNTER 2024-07-24 07:59 | Outpatient (AMB) | payer OTHER, SELFPAY ==
--- NOTE | 2024-07-24 08:03 | MHC.OFFVIS ---
Vital Signs 07/24/24 08:08 Height 5 ft 1 in Weight 106 lb BMI 20.0 BP 116/56 L Blood Pressure Location Lt brachial Position Sitting Pulse 62 Intake Visit Reasons: 4 month follow up Intake Note: Patient follow up for abdominal bloating Patient cc: abdominal bloating with some burning sensation on and off, gassy, burping a lot, and between diarrhea and constipation. Sulfur Chloride Operator Required: No Accompanied by: Self / Same As Patient Allergies lansoprazole Allergy (Severe, Verified 07/25/24 15:07) Back Pain cefprozil [From Cefzil] Adverse Reaction (Mild, Verified 07/25/24 15:07) unknown cephalexin Adverse Reaction (Mild, Verified 07/25/24 15:07) stomach upset azithromycin Adverse Reaction (Unknown, Verified 07/25/24 15:07) stomach upset lisinopril Adverse Reaction (Unknown, Verified 07/25/24 15:07) cough Medication List - Last Reconciled 07/24/24 by Karla Alves MD acetaminophen 500 mg PO ONCE PRN albuterol sulfate 90 mcg/actuation 0 mcg inhalation amlodipine 2.5 mg PO DAILY amoxicillin-pot clavulanate 500-125 mg (Augmentin) 1 tab PO Q12H 10 days carvedilol 12.5 mg PO BID famotidine (Pepcid) 20 mg PO DAILY 90 days furosemide 20 mg PO DAILY Lactobac. rhamnosus GG-inulin 10 billion cell -200 mg ([facility] [employer] [facility]) caps PO ofatumumab (Kesimpta Pen) 20 mg subcut QWEEK omeprazole 10 mg PO DAILY 90 days polyethylene glycol 3350 (Miralax) 17 grams PO DAILY 90 days rifaximin 550 mg PO BID 14 days rifaximin 550 mg PO BID 14 days tamsulosin 0.4 mg PO DAILY 5 days zinc sulfate 50 mg PO .twice a week 90 days HPI HPI 4 month follow up: Details: GI CLINIC VISIT FOR THIS 63-YEAR-OLD FEMALE WITH HYPERTENSION, HYPERCHOLESTEROLEMIA, CARDIOMYOPATHY WITH LEFT BUNDLE-BRANCH BLOCK, MULTIPLE SCLEROSIS FOR FOLLOW-UP OF GERD AND DYSPHAGIA. Patient's Primary Care Physician Is Anam Tomas NP at [facility] and she sees Dr. Dong for her MS. Pt is followed by Cardiology for heart failure related to LBBB. Echocardiogram earlier this year showed EF of 35 to 40% Pt has been unable to tolerate several medications for heart failure. ???TODAY'S VISIT Patient cc: abdominal bloating with some burning sensation on and off, gassy, burping a lot, and between diarrhea and constipation. I think I still have SIBO - bloating, gas Took antibiotics and have diarrhea towards the end - resolved. Flare up makes her constipated. Notes partial improvement after antibiotics. Feels she is unable to get rid of all the stool. Cut out dairy and fructose from her diet. Unable to take the breath test for SIBO She was unable to take augmetin due to diarrhea She saw the clinical veterinarian in May, - EF 42% on Echo. Not at a level where she needs a pacemaker. PAST VISITS: the antibiotic helped me a great deal Started to have a little bit of a stomach upset on 03/05/24 This was followed by gurgling, bloating, abd and back pain, BRAR and foul smelling gas Avoids ice cream, dairy products, high fructose corn syrup Some days she is able to have a BM daily and some days she can have frequent small BMs Had a back up in 2016 and symptoms started since then. Takes Miralax daily. Has been taking Culturelle and plans to take Align for the next few months She would like to do the breath test. PAST VISITS: Patient cc: acid reflex on and off, constipation on and off. Patient is taking antibiotic and is helping her. Feels her symptoms are begining to come back Has been the worst thing that has affected her. Notes upset stomach after eating certain foods - ice cream, jello with peaches and cheeses Denies diarrhea with milk products. Not eating ice-cream or jello with peaches any more Taking much less TUMS Planning to resume taking multivitamins Unable to eat till 4 pm. Tries to eat crackers, saltines and pop tarts. BMs a little bit bigger. Many times she has multiple small bowel movements. Taking Miralax once a day at night. Taking Omeprazole every other day alternating with pepcid. On 08/03/23 @ 18:24 Karla Alves Wrote To Karla Alves (2) Pt called: Complains of constipation and foul smelling flatulance, increased burping, nausea and right sided abdominal pain Has had a few bouts which resolve spontaneously. Lately either has constipation or loose stools I discussed option of trying senna and pt thinks she used it in the past and had some side effects. Pt advised to start taking probiotics ( align or Culturelle). She was advised to increase Miralax to twice a day If symptoms do not improve in 4-6 weeks, patient was advised to call the GI clinic to schedule a follow-up appointment. ?CHRONIC ILLNESSES:?GERD, MULTIPLE SCLEROSIS, HYPOCHOLESTEROLEMIA, Nicotine dependence, unspecified, uncomplicated, Caffeine dependence ?LABS IN [facility]:?01/18/19 NORMAL CBC WITH PLATELET COUNT OF 184, NORMAL CHEM PANEL AND LFTS ? VITAMIN B12 235 IN SEPTEMBER 2017 ?IMAGING STUDIES: 04/2014 Abd US was normal ? 04/2014 UGI showed: ? Small sliding hiatal hernia and gastroesophageal reflux. ?ENDOSCOPIC STUDIES: 12/30/19 EGD showed: ? ESOPHAGUS: Aperistaltic esophagus without stricture or ring. GE junction at 38 cms, small hiatla hernia 38 to 40 cms. ? No esophagitis. Irregular Z line - biopsied to check for Barretts. Biopsies showed reflux and negative for Alberts's. ? STOMACH: Mild diffuse gastric erythema. Biopsies were obtained from the antrum and body of the stomach. ? Decreased peristalsis noted in the stomach. Grade 2 flap valve on retroflexed examination of the cardia. ? Biopsies were negative for H Pylori. ? Plan: ? Continue present medications (Omeprazole at 10 mg PO every other day alternating with Pepcid every other day). Pt was unable to tolerate taking Omeprazole daily. Continues to have intermittent regurgitation. ? Schedule a Gastric Emptying Study to rule out Gastroparesis causing persistent GERD symptoms. ? Patient has an appointment on 01/19/20 in the GI Clinic with Karla Alves M.D ? Above findings were reviewed with the patient and handout on GERD was provided in the discharge area. ?01/2016 EGD AND COLONOSCOPY WERE PERFORMED BY DR. DIEGO: ? GENERAL IMPRESSION:Superficial gastritis. COMMENT:I raised a question of underlying altered motility in this patient. This may needfurther evaluation depending on persistence of symptoms when the patient is re-seen. PROCEDURE IN DETAIL:Digital rectal examination revealed no specific lesion. Video colonoscope wasintroduced without difficulty, it was navigated into the rectosigmoid, sigmoid, upinto the descending colon. At this juncture, there was moderate redundancy.Despite extrinsic pressure, there was still looping of the scope. The patient wasrepositioned on her back. Scope was readily advanced through proximal, descendingcolon, and transverse colon, ascending colon, down into the cecal cap. Appendicealorifice was seen, ileocecal valve was well seen. No mucosal abnormalities wereappreciated. The scope was slowly withdrawn. Good rotational views were had.Anorectal verge was clear. GENERAL IMPRESSION:There were a few minor diverticula noted. Otherwise, the examination was normal. PLAN:The patient will be re-seen in our office. Further evaluation as is appropriate. Repeat colon cancer screening in this individual would be approximately 7 years. ? ? PAST VISITS: Weekend of 07/28/23 she had several BMs with burping, bloating and gurgling, fatigue. Symptoms continued. Started taking Culturelle once a day which helped the gas and not the diarrhea. Unable to leave the house or stop culturelle Also has had some leakage - feels like colon is in a spasm Kept a log of BMs - days when she goes 4 times, or 6 times or upto 8 times - multiple small BMs without diarrhea. Saw the Neurologist who prescribed the Bentyl 20 mg and has not started taking it. Does not drink milk and no longer can drink coffee. Can have a slice of cheese a day Unable to eat anything till mid afternoon and has been eating less. Has dinner after 6 pm. She was eating ice cream all the time and has not been able to take it. Taking Omeprazole and feeling better. Can have uncontrollable gas. Switched to a new medication once a month (instead of every week) for MS Continues to have cardiac issues. Gained 2-3 lbs and has been using Lasix - every other day She was taking pepcid and having diarrhea Continues to have bloating and gas. Feels better in the afternoon. Thinks Avonex injection (takes on the weekend) is causing problems with her stomach and looking at other options with the Neurologist. Prescribed spironolactone 25 mg once a day by the clinical veterinarian and notes nausea. Taking mostly pepcid for the stomach and trying to work in the Omeprazole - was taking it every 3rd day. Seemed to hurt and not help. She is able to take furosemide without any stomach issues. Seeing a Cardiology PA at [facility] and diagnosed with heart failure. June, noted worsening SOB and dose of carvedilol was doubled BNP was elevated (641) and advised to take furosemide. Lab tests were reviewed - showed anemia - advised to start taking iron every other day. Increase to daily if no problems with constipation. Take MVI and Vitamin B12 Planning to work on taking a healthier diet. Baseline wt is 108. Taking 1/2 tablet of Pepcid daily - once in a while feels acid coming up in her chest. Stopped Omperazole since it was causing bad smelling gas. Resolved after she stopped taking Omeprazole Denies problems with anesthesia in the past, loud snoring or sleep apnea (has intermittent mild snoring). ? Denies major pulmonary problems. ? Denies known FH of colon polyps or colon cancer or GI malignancy. ? Mom had breast cancer and cardiac amyloidosis. ? Dad had skin cancer. Taking Omeprazole 10 mg every other day alternating with Pepcid or TUMs with adquate control of GERD symptoms Taking Miralax for constipation. Notes GI and urinary tracts are more sluggish. Has a BM daily. Feels full and unable to eat a lot at once. Wt is stable. Noted chest pains after her booster shot in 08/2021 for COVID (Moderna) Pt is followed by Dr Velasquezs, Remote Broadcast Engineer at [facility] for Htn and Cardiomyopathy and has a FU appt in Dec, 2021. Continues to have intermittent trouble with chest tightness and shortness of breath. Takes an effort to do her regular chores and going to the grocery store. 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 Seen by Remote Broadcast Engineer for chest pain and had a stress test which was negative. Cardiology evaluation with Echo, stress test. 04/05/21 Cardiac Cath - no stenosisEF was 35% on EchoDiagnosed with non-alcoholic cardiomyopathy - cardiac MRI was negative for amyloidosis (Mom of cardiac amyloidosis). EF was 41% Heart problems related to LBBB - she may need a pacemaker in the future. Denies ETOH use Metoprolol - caused stomach pain & diarrhea Carvedilol - taking at present - makes her feel sluggish, retain water and urinary problems Enteresta - started 2 days ago - had chest tightness and discontinued Blood pressure has usually been 130 ?PAST VISIT: hanging in there New medical issue which is ongoing. Happened while shoveling snow in Oct, 2020 - asthmatic symptoms. Being treated with 2 inhalers and a nasal spray. Tested negative for COVID. Had pulmonary testing at [facility] last week Tried Prevacid and noted back pain. Taking a combination of Omeprazole on alternate days with Pepcid GES results were reviewed with the patient?- normal [facility] Medical History Multiple sclerosis Gastroesophageal reflux disease without esophagitis Hypercholesterolemia LBBB (left bundle branch block) Cardiomyopathy Hypertension Anemia Small intestinal bacterial overgrowth Surgical History H/O cardiac catheterization History of endoscopy (12/30/19) Hx of endoscopy History of colonoscopy Family History Father History of heart attack Mother No problems noted. Social History Alcohol intake: never Review of Systems Const All systems reviewed & are unremarkable except as noted in HPI and below Physical Exam Vital Signs: Last Vital Signs Pulse 62 07/24/24 08:08 BP 116/56 L 07/24/24 08:08 BMI result Body Mass Index 20.0 Const General: healthy appearing and no acute distress Nutritional Appearance: average body habitus Orientation/consciousness: patient oriented x3 Limitations: no limitations HEENT Head: Yes normal to inspection Ears: hearing grossly normal bilaterally Eyes Sclerae: sclerae normal Pupils: Equal, round and reactive pupils present Neck Neck: Yes normal visual inspection Chest Chest palpation & inspection: normal inspection of the chest Resp Effort & Inspection: normal respiratory effort Auscultation: clear to auscultation bilaterally Cardio Palpation: normal PMI Rate: regular rate Rhythm: regular rhythm Heart sounds: S1 normal heart sound present, S2 normal heart sound present and no murmurs GI Palpation (GI): Soft to palpation, nontender and No hepatosplenomegaly present Auscultation: normal bowel sounds Rectal Exam - Female: deferred Skin General skin exam: no rashes or lesions noted Neuro General: patient oriented x3, gait normal and moves all extremities Cranial nerves: Yes Equal, round and reactive pupils present Psych Appearance: grossly normal Mental Status: mental status grossly normal Assessment & Plan Assessment & Plan (1) Abdominal bloating: Code(s): R14.0 - Abdominal distension (gaseous) Category: Medical (2) Colon cancer screening: Comment: Colonoscopy [place] [address] Diego showed few minor diverticula noted. Otherwise, the examination was normal. Repeat colonoscopy was advised in 7 years - due 2022 (consider a stool cologuard test due to low EF of 35 - 40%) Code(s): Z12.11 - Encounter for screening for malignant neoplasm of colon Category: Medical (3) Pharyngoesophageal dysphagia: Code(s): R13.14 - Dysphagia, pharyngoesophageal phase Category: Medical (4) Chronic constipation: Code(s): K59.09 - Other constipation Category: Medical (5) Vitamin B12 deficiency: Code(s): E53.8 - Deficiency of other specified B group vitamins Category: Medical Plan 63 YF with GERD, MULTIPLE SCLEROSIS, HYPOCHOLESTEROLEMIA, Htn, cardiomyopathy with LBBB, Nicotine dependence, Caffeine dependence seen for evaluation dysphagia, regurgitation abdominal bloating and constipation. Her symptoms suggest esophageal involvement with MS. Patient was advised a trial of low-dose omeprazole 10 mg daily to see if it would control her symptoms without causing dizziness. She was advised to add Pepcid at night if she continued to have symptoms despite above. 12/30/19 EGD showed a small hiatal hernia, an aperistaltic esophagus without stricture or ring. Esophageal biopsies showed reflux and were negative for Alberts's. STOMACH: Mild diffuse gastric erythema. Biopsies were obtained from the antrum and body of the stomach. Decreased peristalsis noted in the stomach. Biopsies were negative for H Pylori. A gastric emptying study was normal ruling out gastroparesis. She did well with omeprazole for several months and then noted recurrent dizziness. Patient tried switching to lansoprazole 15 mg every other day and was unable to tolerate due to back pain. She is taking omeprazole 10 mg every other day alternating with Pepcid 20 mg on alternate days. She takes Miralax once a day for constipation. 04/2023 Labs showed worsening anemia, normal Vitamin B12, low Vitamin D and mild Zinc deficiency. Pt will resume taking iron gummies (which she tolerated in the past) and OTC Vitamin D. She was advised to take a MVI 3 times a week for Zinc deficiency. [place] [address] Diego showed few minor diverticula noted. Otherwise, the examination was normal. Repeat colonoscopy was advised in 7 years - due 2022. 04/2023 Stool cologuard test ordered due to low EF of 35 - 40% and has not been submitted yet. 10/11/23 Pt complained of abdominal bloating - possibly due to malabsoprtion or small bowel bacterial overgrowth. She was advised to: 1. Have labs and stool tests to rule out pancreatic insufficiency 2. Take Citrucil twice a day and continue taking the Probiotics. 3. Avoid gas-producing foods (eg, cabbage, legumes, onions, broccoli, brussel sprouts, wheat, and potatoes If above is not helpful, you can start a FODMAP diet 12/13/23 the antibiotic helped me a great deal Feels her symptoms are beginning to come back Has been the worst thing that has affected her. Pt was advised to avoid foods precipitating her symptoms. Use dorian tea and peppermint oil. 01/[address] scan showed: A cause for the patient's small intestinal bacterial overgrowth has not been found. Incidental note made of nonobstructing bilateral small renal calculi and degenerative changes L5-S1 with grade 1 anterolisthesis. Stool Cologuard test was negative and stool fat was normal Butler with antibiotics for suspected SIBO in 2- 3 months if symptoms become worse Pt advised to take Miralax three times a day - once a week to empty out her colon. 03/20/24 Takes Miralax daily. Has been taking Culturelle and plans to take Align for the next few months She would like to do the breath test. 07/24/24 Took antibiotics and have diarrhea towards the end - resolved. Flare up makes her constipated. Notes partial improvement after antibiotics. Feels she is unable to get rid of all the stool. Cut out dairy and fructose from her diet. Unable to take the breath test for SIBO She was unable to take augmetin due to diarrhea Follow-up appointment in 4 months Medications: New cholecalciferol (vitamin D3) 250 mcg PO 2XW 26 caps 1RF 90 days E55.9 - Vitamin D deficiency, unspecified Coding Level of Care Code Est Pt Level 4 (89507) Diagnoses Abdominal bloating R14.0 Colon cancer screening Z12.11 Pharyngoesophageal dysphagia R13.14 Chronic constipation K59.09 Vitamin B12 deficiency E53.8 Time Spent (min) 25
[2024-07-24 08:08] VITALS: BP 116/56; PULSE 62
== END 2024-07-24 08:57 | disposition home or self-care (01) ==
PROVIDERS: PCP Nurse Practitioner Family; Visit Provider Internal Medicine Gastroenterology
DX: R14.0 Abdominal distension (gaseous) (principal); Z12.11 Encounter for screening for malignant neoplasm of colon; R13.14 Dysphagia, pharyngoesophageal phase; K59.09 Other constipation; E53.8 Deficiency of other specified B group vitamins
CPT/HCPCS: 99499

== ENCOUNTER → 2024-07-24 07:59 | Outpatient (BNVA) | payer OTHER, SELFPAY | PROVIDERS: PCP Nurse Practitioner Family; Visit Provider Internal Medicine Gastroenterology ==

== ENCOUNTER 2024-07-25 14:51 | Outpatient (AMB) | payer OTHER, SELFPAY ==
--- NOTE | 2024-07-25 15:05 | A.OFFVIS_ITS ---
Intake Visit Reasons: nephrolithiasis- ER Referral Intake Note: Patient is present for NEPHOLITHIASIS-ER REFERRAL Urology Medication:TAMSULOSIN Antibiotic Allergy:NONE Blood Thinner:NONE [employer] Required: No Allergies lansoprazole Allergy (Severe, Verified 07/25/24 15:07) Back Pain cefprozil [From Cefzil] Adverse Reaction (Mild, Verified 07/25/24 15:07) unknown cephalexin Adverse Reaction (Mild, Verified 07/25/24 15:07) stomach upset azithromycin Adverse Reaction (Unknown, Verified 07/25/24 15:07) stomach upset lisinopril Adverse Reaction (Unknown, Verified 07/25/24 15:07) cough Medication List - Last Reconciled 07/26/24 by Latanya English MD acetaminophen 500 mg PO ONCE PRN albuterol sulfate 90 mcg/actuation 0 mcg inhalation amlodipine 2.5 mg PO DAILY carvedilol 12.5 mg PO BID cholecalciferol (vitamin D3) 250 mcg PO 2XW 90 days famotidine (Pepcid) 20 mg PO DAILY 90 days furosemide 20 mg PO DAILY Lactobac. rhamnosus GG-inulin 10 billion cell -200 mg ([facility]) caps PO ofatumumab (Kesimpta Pen) 20 mg subcut QWEEK omeprazole 10 mg PO DAILY 90 days polyethylene glycol 3350 (Miralax) 17 grams PO DAILY 90 days rifaximin 550 mg PO BID 14 days rifaximin 550 mg PO BID 14 days tamsulosin 0.4 mg PO DAILY 5 days zinc sulfate 50 mg PO .twice a week 90 days HPI Comments Details: Orly is a 63-year-old female she is here for evaluation due to nephrolithiasis. h/o multiple sclerosis. The patient was seen in the [facility] room in May 05, 2024, at that time she had left flank pain. The patient states that she thinks she passed the stone in the emergency room she is been asymptomatic since. CTAP-05/05/24-2 mm calculus at the left ureterovesical junction produces mild to moderate left hydroureteronephrosis. Additonal small bilateral renal calculi. 2 right renal calculi measuring 2 mm/upper pole, 2 mm/ lower pole, Left kidney 3 mm and 1 mm lower pole. I have discussed diet modification to decrease risk of forming more kidney stones. I have discussed low oxalate diet and specific foods to avoid including certain green leafy vegetables, chocalate, nuts, tea, beets, rubarb; low sodium, decreased use of animal protein and the importance of hydration. The patient has CAD and has retrictions on fluid intake, Discussed further evaluation with 24 hr urine however the patient states she will not be able to complete the test. She states that she has intermittent constipation and loose stools. The patient is followed by GI. The patient Plan to monitor kidneys. [facility] Medical History Multiple sclerosis Gastroesophageal reflux disease without esophagitis Hypercholesterolemia LBBB (left bundle branch block) Cardiomyopathy Hypertension Anemia Small intestinal bacterial overgrowth Surgical History H/O cardiac catheterization History of endoscopy (12/30/19) Hx of endoscopy History of colonoscopy Family History Father History of heart attack Mother No problems noted. Social History Alcohol intake: never Review of Systems Const All systems reviewed & are unremarkable except as noted in HPI and below Reports no additional complaints Eyes Reports no additional complaints ENT Reports no additional complaints Card Reports no additional complaints Resp Reports no additional complaints GI Reports no additional complaints Reports as per HPI Musc Reports no additional complaints Skin/Breast Reports system reviewed and no additional complaints, except as documented Neuro Reports no additional complaints Psych Reports no additional complaints Endo Reports no additional complaints Sergei/Lymph Reports no additional complaints Aller/Immun Reports no additional complaints Physical Exam Const General: cooperative, healthy appearing and no acute distress Orientation/consciousness: patient oriented x3 HEENT Head: Yes normal to inspection, Yes normocephalic and Yes atraumatic Eyes Conjunctivae: conjunctivae normal Neck Neck: Yes normal visual inspection and Yes trachea midline Chest Chest palpation & inspection: normal inspection of the chest Resp Effort & Inspection: normal respiratory effort Cardio Jugular venous distension: no JVD GI Inspection: Yes normal to inspection Skin General skin exam: no rashes or lesions noted Neuro General: patient oriented x3 Psych Appearance: grossly normal Results AMB Urinalysis, Automated UA Leukoctes 15 Karen/uL Last Edit by NORM Carpenter on 07/25/24 15:26 UA Nitrite Negative Last Edit by Mayte Dangelo [facility] on 07/25/24 15:26 UA Urobilinogen 0.2 mg/dL Last Edit by Mayte Dangelo [facility] on 07/25/24 15:2 6 UA Protein 0 mg/dL Last Edit by Mayte Dangelo [facility] on 07/25/24 15:26 UA pH 6.0 Last Edit by Mayte Dangelo [facility] on 07/25/24 15:26 UA Blood 200 Isreal/uL Last Edit by Mayte Dangelo [facility] on 07/25/24 15:26 UA Specific [place] 1.015 Last Edit by Mayte Dangelo [facility] on 07/25/24 15: 26 UA Ketone Negative Last Edit by Mayte Dangelo [facility] on 07/25/24 15:26 UA Bilirubin 0 mg/dL Last Edit by Mayte Dangelo [facility] on 07/25/24 15:26 UA Glucose 0 mg/dL Last Edit by Mayte Dangelo [facility] on 07/25/24 15:26 Results Reviewed Results Reviewed: Laboratory Last Values Urine pH (Auto) 6.0 07/25/24 15:25 Specific [place] (Auto) 1.015 07/25/24 15:25 Urine Protein (Auto) 0 mg/dL 07/25/24 15:25 Glucose (UA)(Auto) 0 mg/dL 07/25/24 15:25 Urine Ketones (Auto) Negative 07/25/24 15:25 Urine Blood (Auto) 200 Isreal/uL 07/25/24 15:25 Urine Nitrite (Auto) Negative 07/25/24 15:25 Urine Bilirubin (Auto) 0 mg/dL 07/25/24 15:25 Urine Urobilinogen (Auto) 0.2 mg/dL 07/25/24 15:25 Leukocyte Esterase (Auto) 15 Karen/uL 07/25/24 15:25 Date of Service: 05/05/24 CT ABDOMEN AND PELVIS WITHOUT CONTRAST CLINICAL INFORMATION: L flank pain, dysuria COMPARISON: None available. TECHNIQUE: Multidetector volumetric imaging was performed from the superior aspect of the liver through the pubic symphysis. Sagittal and coronal reformatted images were obtained on the technologist's workstation. This CT examination was performed using dose optimization techniques as appropriate, variously including the following: *Automated exposure control *Adjustment of mA and/or kV according to patient size (this includes techniques or standardized protocols for targeted exams where dose is matched to indication/reason for exam; i.e. extremities or head) *Use of iterative reconstruction technique DLP: 325 mGy-cm FINDINGS: LUNG BASES: The visualized lung bases are unremarkable. LIVER, GALLBLADDER, AND BILIARY TREE: The liver is normal in size, shape, and attenuation. No focal hepatic lesion or biliary ductal dilatation is present. The gallbladder is unremarkable with no evidence of radiopaque gallstones, gallbladder wall thickening, or obvious pericholecystic inflammatory changes. PANCREAS: Unremarkable. SPLEEN: Unremarkable. ADRENAL GLANDS: Unremarkable. KIDNEYS AND URETERS: The kidneys are normal in size, shape, and attenuation. Again seen are 2 right renal calculi measuring 2 mm in diameter, situated in the upper and lower pole calyces. At the left kidney, there is a 3 mm calculus within a lower pole calyx and a 1 mm calculus within the adjacent lower pole calyx. There is mild to moderate left hydroureteronephrosis produced by a 2 mm calculus at the left ureterovesical junction. No right-sided hydronephrosis or hydroureter. BLADDER: Unremarkable. GASTROINTESTINAL TRACT: Stomach, small bowel, and colon are normal in caliber. No bowel wall thickening or surrounding inflammatory changes. Appendix is normal. No intraperitoneal free fluid or free air. ABDOMINAL WALL: There is a small fat-containing umbilical hernia. No bowel involvement. LYMPH NODES: Normal. VASCULAR: Atherosclerotic calcifications are present in the abdominal aorta and iliac arteries. No aneurysmal dilatation. PELVIC VISCERA: The uterus and adnexa are unremarkable. OSSEOUS STRUCTURES: There is grade 2 anterolisthesis of L5 on S1 with marked bilateral facet arthropathy. Moderate to severe degenerative disc disease is present at L5-S1. More mild multilevel degenerative disc disease at other levels. 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 IMPRESSION: 1. A 2 mm calculus at the left ureterovesical junction produces mild to moderate left hydroureteronephrosis. 2. Additional small bilateral renal calculi. 3. Grade 2 anterolisthesis of L5 on S1 with marked bilateral facet arthropathy. To and I specimen so Assessment & Plan Assessment & Plan (1) Kidney stone: Code(s): N20.0 - Calculus of kidney Category: Medical Plan Renal ultrasound in 6 months. Orders: Orders AMB Urinalysis Automated 07/25/24 Z13.9 - Encounter for screening, unspecified US renal BI 6 Months N20.0 - Calculus of kidney Patient Instructions: The patient had an opportunity to ask questions regarding treatment plan. The patient expressed understanding and agreement with the above treatment plan. The patient is aware they should contact our office by phone for worsening of their current condition or the appearance of new symptoms. Compliance is encouraged with any medications and followup testing that is ordered. It is a privilege to be allowed the opportunity to participate in the urologic care of your patient. If you have any questions or concerns regarding treatment for the above conditions please do not hesitate to contact me. The office telephone contact is [phone]. This note is constructed in part using voice recognition software. While every effort has been made to ensure accuracy elevator dispatcher errors may have been included. Yours sincerely, Latanya English MD Coding Level of Care Code New Pt Level 4 (84798) Diagnoses Kidney stone N20.0
== END 2024-07-25 16:05 | disposition home or self-care (01) ==
PROVIDERS: PCP Nurse Practitioner Family; Visit Provider Urology
DX: N20.0 Calculus of kidney (principal)
CPT/HCPCS: 99204

== ENCOUNTER → 2024-07-25 14:51 | Outpatient (BNVA) | payer OTHER, SELFPAY | PROVIDERS: PCP Nurse Practitioner Family; Visit Provider Urology | DX: N20.0 Calculus of kidney (principal) | CPT/HCPCS: 81003 ==

== ENCOUNTER 2024-11-27 09:01 | Outpatient (AMB) | payer OTHER, SELFPAY ==
--- NOTE | 2024-11-27 09:03 | A.OFFVIS_ITS ---
Intake Visit Reasons: 4 month follow up, telehealth Intake Note: Patient 4 month telehealth follow up for Abdominal bloating Patient cc: between diarrhea and constipation,abdominal pain/bloating, acid reflex is much better with medication. Dope Weigh Operator Required: No Allergies lansoprazole Allergy (Severe, Verified 11/27/24 09:01) Back Pain cefprozil [From Cefzil] Adverse Reaction (Mild, Verified 11/27/24 09:01) unknown cephalexin Adverse Reaction (Mild, Verified 11/27/24 09:01) stomach upset azithromycin Adverse Reaction (Unknown, Verified 11/27/24 09:01) stomach upset lisinopril Adverse Reaction (Unknown, Verified 11/27/24 09:01) cough Medication List - Last Reconciled 11/27/24 by Karla Alves MD acetaminophen 500 mg PO ONCE PRN amlodipine 2.5 mg PO DAILY carvedilol 12.5 mg PO BID famotidine (Pepcid) 20 mg PO DAILY 90 days furosemide 20 mg PO DAILY Lactobac. rhamnosus GG-inulin 10 billion cell -200 mg ([facility]) caps PO ofatumumab (Kesimpta Pen) 20 mg subcut QWEEK omeprazole 10 mg PO DAILY 90 days polyethylene glycol 3350 (Miralax) 17 grams PO DAILY 90 days rifaximin 550 mg PO BID 14 days tamsulosin 0.4 mg PO DAILY 5 days HPI HPI 4 month follow up: Details: TELEMEDICNE VISIT FOR THIS 64-YEAR-OLD FEMALE WITH HYPERTENSION, HYPERCHOLESTEROLEMIA, CARDIOMYOPATHY WITH LEFT BUNDLE-BRANCH BLOCK, MULTIPLE SCLEROSIS FOR FOLLOW-UP OF GERD AND DYSPHAGIA. Patient's Primary Care Physician Is Anam Tomas NP at [facility] and she sees Dr. Dong for her MS. Pt is followed by Cardiology for heart failure related to LBBB. Echocardiogram earlier this year showed EF of 35 to 40% Pt has been unable to tolerate several medications for heart failure. CHRONIC ILLNESSES:?GERD, MULTIPLE SCLEROSIS, HYPOCHOLESTEROLEMIA, Nicotine dependence, unspecified, uncomplicated, Caffeine dependence ???TODAY'S VISIT Patient cc: between diarrhea and constipation,abdominal pain/bloating, acid reflex is much better with medication. Getting over the flu - stuffy nose and head since last Sunday with chills and body aches Taking Rifaximin and has 2 more days. She was taking regular milk and switched to Lactaid milk in tea. Had been eating apple pie and taken it away Cant handle anything with sugars in it Antibiotics help her symptoms and do not resolve completely with antibiotics. Last episode triggered by eating xmas cookies and ham. Symptoms started after she was diagnosed with cardiomyopathy with HF in 2020 PAST VISITS: I think I still have SIBO - bloating, gas Took antibiotics and have diarrhea towards the end - resolved. Flare up makes her constipated. Notes partial improvement after antibiotics. Feels she is unable to get rid of all the stool. Cut out dairy and fructose from her diet. Unable to take the breath test for SIBO She was unable to take augmetin due to diarrhea She saw the home fire alarm installer in May, - EF 42% on Echo. Not at a level where she needs a pacemaker. the antibiotic helped me a great deal Started to have a little bit of a stomach upset on 03/05/24 This was followed by gurgling, bloating, abd and back pain, BRAR and foul smelling gas Avoids ice cream, dairy products, high fructose corn syrup Some days she is able to have a BM daily and some days she can have frequent small BMs Had a back up in 2016 and symptoms started since then. Takes Miralax daily. Has been taking Culturelle and plans to take Align for the next few months She would like to do the breath test. PAST VISITS: Patient cc: acid reflex on and off, constipation on and off. Patient is taking antibiotic and is helping her. Feels her symptoms are begining to come back Has been the worst thing that has affected her. Notes upset stomach after eating certain foods - ice cream, jello with peaches and cheeses Denies diarrhea with milk products. Not eating ice-cream or jello with peaches any more Taking much less TUMS Planning to resume taking multivitamins Unable to eat till 4 pm. Tries to eat crackers, saltines and pop tarts. BMs a little bit bigger. Many times she has multiple small bowel movements. Taking Miralax once a day at night. Taking Omeprazole every other day alternating with pepcid. On 08/03/23 @ 18:24 Karla Alves Wrote To Karla Alves (2) Pt called: Complains of constipation and foul smelling flatulance, increased burping, nausea and right sided abdominal pain Has had a few bouts which resolve spontaneously. Lately either has constipation or loose stools I discussed option of trying senna and pt thinks she used it in the past and had some side effects. Pt advised to start taking probiotics ( align or Culturelle). She was advised to increase Miralax to twice a day If symptoms do not improve in 4-6 weeks, patient was advised to call the GI clinic to schedule a follow-up appointment. ?LABS IN [facility]:?01/18/19 NORMAL CBC WITH PLATELET COUNT OF 184, NORMAL CHEM PANEL AND LFTS ? VITAMIN B12 235 IN SEPTEMBER 2017 ?IMAGING STUDIES: 04/2014 Abd US was normal ? 04/2014 UGI showed: ? Small sliding hiatal hernia and gastroesophageal reflux. ?ENDOSCOPIC STUDIES: 12/30/19 EGD showed: ? ESOPHAGUS: Aperistaltic esophagus without stricture or ring. GE junction at 38 cms, small hiatla hernia 38 to 40 cms. ? No esophagitis. Irregular Z line - biopsied to check for Barretts. Biopsies showed reflux and negative for Alberts's. ? STOMACH: Mild diffuse gastric erythema. Biopsies were obtained from the antrum and body of the stomach. ? Decreased peristalsis noted in the stomach. Grade 2 flap valve on retroflexed examination of the cardia. ? Biopsies were negative for H Pylori. ? Plan: ? Continue present medications (Omeprazole at 10 mg PO every other day alternating with Pepcid every other day). Pt was unable to tolerate taking Omeprazole daily. Continues to have intermittent regurgitation. ? Schedule a Gastric Emptying Study to rule out Gastroparesis causing persistent GERD symptoms. ? Patient has an appointment on 01/19/20 in the GI Clinic with Karla Alves M.D ? Above findings were reviewed with the patient and handout on GERD was provided in the discharge area. ?01/2016 EGD AND COLONOSCOPY WERE PERFORMED BY DR. DIEGO: ? GENERAL IMPRESSION:Superficial gastritis. COMMENT:I raised a question of underlying altered motility in this patient. This may needfurther evaluation depending on persistence of symptoms when the patient is re-seen. PROCEDURE IN DETAIL:Digital rectal examination revealed no specific lesion. Video colonoscope wasintroduced without difficulty, it was navigated into the rectosigmoid, sigmoid, upinto the descending colon. At this juncture, there was moderate redundancy.Despite extrinsic pressure, there was still looping of the scope. The patient wasrepositioned on her back. Scope was readily advanced through proximal, descendingcolon, and transverse colon, ascending colon, down into the cecal cap. Appendicealorifice was seen, ileocecal valve was well seen. No m ucosal abnormalities wereappreciated. The scope was slowly withdrawn. Good rotational views were had.Anorectal verge was clear. GENERAL IMPRESSION:There were a few minor diverticula noted. Otherwise, the examination was normal. PLAN:The patient will be re-seen in our office. Further evaluation as is appropriate. Repeat colon cancer screening in this individual would be approximately 7 years. ? ? PAST VISITS: Weekend of 07/28/23 she had several BMs with burping, bloating and gurgling, fatigue. Symptoms continued. Started taking Culturelle once a day which helped the gas and not the diarrhea. Unable to leave the house or stop culturelle Also has had some leakage - feels like colon is in a spasm Kept a log of BMs - days when she goes 4 times, or 6 times or upto 8 times - multiple small BMs without diarrhea. Saw the Neurologist who prescribed the Bentyl 20 mg and has not started taking it. Does not drink milk and no longer can drink coffee. Can have a slice of cheese a day Unable to eat anything till mid afternoon and has been eating less. Has dinner after 6 pm. She was eating ice cream all the time and has not been able to take it. Taking Omeprazole and feeling better. Can have uncontrollable gas. Switched to a new medication once a month (instead of every week) for MS Continues to have cardiac issues. Gained 2-3 lbs and has been using Lasix - every other day She was taking pepcid and having diarrhea Continues to have bloating and gas. Feels better in the afternoon. Thinks Avonex injection (takes on the weekend) is causing problems with her stomach and looking at other options with the Neurologist. Prescribed spironolactone 25 mg once a day by the home fire alarm installer and notes nausea. Taking mostly pepcid for the stomach and trying to work in the Omeprazole - was taking it every 3rd day. Seemed to hurt and not help. She is able to take furosemide without any stomach issues. Seeing a Cardiology PA at [facility] and diagnosed with heart failure. June, noted worsening SOB and dose of carvedilol was doubled BNP was elevated (641) and advised to take furosemide. Lab tests were reviewed - showed anemia - advised to start taking iron every other day. Increase to daily if no problems with constipation. Take MVI and Vitamin B12 Planning to work on taking a healthier diet. Baseline wt is 108. Taking 1/2 tablet of Pepcid daily - once in a while feels acid coming up in her chest. Stopped Omperazole since it was causing bad smelling gas. Resolved after she stopped taking Omeprazole Denies problems with anesthesia in the past, loud snoring or sleep apnea (has intermittent mild snoring). ? Denies major pulmonary problems. ? Denies known FH of colon polyps or colon cancer or GI malignancy. ? Mom had breast cancer and cardiac amyloidosis. ? Dad had skin cancer. Taking Omeprazole 10 mg every other day alternating with Pepcid or TUMs with adquate control of GERD symptoms Taking Miralax for constipation. Notes GI and urinary tracts are more sluggish. Has a BM daily. Feels full and unable to eat a lot at once. Wt is stable. Noted chest pains after her booster shot in 08/2021 for COVID (Moderna) Pt is followed by Dr Velasquezs, Cathode Ray Tube Assembler at [facility] for Htn and Cardiomyopathy and has a FU appt in Dec, 2021. Continues to have intermittent trouble with chest tightness and shortness of breath. Takes an effort to do her regular chores and going to the grocery store. 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 Seen by Cathode Ray Tube Assembler for chest pain and had a stress test which was negative. Cardiology evaluation with Echo, stress test. 04/05/21 Cardiac Cath - no stenosisEF was 35% on EchoDiagnosed with non-alcoholic cardiomyopathy - cardiac MRI was negative for amyloidosis (Mom of cardiac amyloidosis). EF was 41% Heart problems related to LBBB - she may need a pacemaker in the future. Denies ETOH use Metoprolol - caused stomach pain & diarrhea Carvedilol - taking at present - makes her feel sluggish, retain water and urinary problems Enteresta - started 2 days ago - had chest tightness and discontinued Blood pressure has usually been 130 ?PAST VISIT: hanging in there New medical issue which is ongoing. Happened while shoveling snow in Oct, 2020 - asthmatic symptoms. Being treated with 2 inhalers and a nasal spray. Tested negative for COVID. Had pulmonary testing at [facility] last week Tried Prevacid and noted back pain. Taking a combination of Omeprazole on alternate days with Pepcid GES results were reviewed with the patient?- normal [facility] Medical History Multiple sclerosis Gastroesophageal reflux disease without esophagitis Hypercholesterolemia LBBB (left bundle branch block) Cardiomyopathy Hypertension Anemia Small intestinal bacterial overgrowth Surgical History H/O cardiac catheterization History of endoscopy (12/30/19) Hx of endoscopy History of colonoscopy Family History Father History of heart attack Mother No problems noted. Social History Alcohol intake: never Review of Systems Const All systems reviewed & are unremarkable except as noted in HPI and below Telehealth Telehealth Telehealth Platform: Telephone Location of provider rendering services: practice address Location of patient: address on file Patient Identification confirmed using: Name, : Yes Patient verbally consented to treatment: Yes Patient verbally consented to billing insurance company: Yes Patient informed of any privacy concerns related to visit: Yes Minutes spent on Phone/Video with Pt.: 15 Assessment & Plan Assessment & Plan (1) Vitamin B12 deficiency: Code(s): E53.8 - Deficiency of other specified B group vitamins Category: Medical (2) Chronic constipation: Code(s): K59.09 - Other constipation Category: Medical (3) Pharyngoesophageal dysphagia: Code(s): R13.14 - Dysphagia, pharyngoesophageal phase Category: Medical (4) Vitamin D deficiency: Code(s): E55.9 - Vitamin D deficiency, unspecified Category: Medical (5) Colon cancer screening: Comment: Colonoscopy [place] [address] Diego showed few minor diverticula noted. Otherwise, the examination was normal. Repeat colonoscopy was advised in years - due 2022 (consider a stool cologuard test due to low EF of 35 - 40%) Code(s): Z12.11 - Encounter for screening for malignant neoplasm of colon Category: Medical (6) Abdominal bloating: Code(s): R14.0 - Abdominal distension (gaseous) Category: Medical Plan 64 YF with GERD, multiple sclerosis, hypertension, hypercholesterolemia, cardiomyopathy with LBBB, Nicotine dependence, Caffeine dependence seen for evaluation dysphagia, regurgitation abdominal bloating and constipation. Her symptoms suggest esophageal involvement with MS. Patient was advised a trial of low-dose omeprazole 10 mg daily to see if it would control her symptoms without causing dizziness. She was advised to add Pepcid at night if she continued to have symptoms despite above. 12/30/19 EGD showed a small hiatal hernia, an aperistaltic esophagus without stricture or ring. Esophageal biopsies showed reflux and were negative for Alberts's. STOMACH: Mild diffuse gastric erythema. Biopsies were obtained from the antrum and body of the stomach. Decreased peristalsis noted in the stomach. Biopsies were negative for H Pylori. A gastric emptying study was normal ruling out gastroparesis. She did well with omeprazole for several months and then noted recurrent dizziness. Patient tried switching to lansoprazole 15 mg every other day and was unable to tolerate due to back pain. She is taking omeprazole 10 mg every other day alternating with Pepcid 20 mg on alternate days. She takes Miralax once a day for constipation. 04/2023 Labs showed worsening anemia, normal Vitamin B12, low Vitamin D and mild Zinc deficiency. Pt will resume taking iron gummies (which she tolerated in the past) and OTC Vitamin D. She was advised to take a MVI 3 times a week for Zinc deficiency. Colonoscopy [place] [address] Diego showed few minor diverticula noted. Otherwise, the examination was normal. Repeat colonoscopy was advised in 7 years - due 2022. 04/2023 Stool cologuard test ordered due to low EF of 35 - 40% and has not been submitted yet. 10/11/23 Pt complained of abdominal bloating - possibly due to malabsoprtion or small bowel bacterial overgrowth. She was advised to: 1. Have labs and stool tests to rule out pancreatic insufficiency 2. Take Citrucil twice a day and continue taking the Probiotics. 3. Avoid gas-producing foods (eg, cabbage, legumes, onions, broccoli, brussel sprouts, wheat, and potatoes If above is not helpful, you can start a FODMAP diet 12/13/23 the antibiotic helped me a great deal Feels her symptoms are beginning to come back Has been the worst thing that has affected her. Pt was advised to avoid foods precipitating her symptoms. Use dorian tea and peppermint oil. 01/[address] scan showed: A cause for the patient's small intestinal bacterial overgrowth has not been found. Incidental note made of nonobstructing bilateral small renal calculi and degenerative changes L5-S1 with grade 1 anterolisthesis. Stool Cologuard test was negative and stool fat was normal Avenel with antibiotics for suspected SIBO in 2- 3 months if symptoms become worse Pt advised to take Miralax three times a day - once a week to empty out her colon. 03/20/24 Takes Miralax daily. Has been taking Culturelle and plans to take Align for the next few months She would like to do the breath test. 07/24/24 Took antibiotics and have diarrhea towards the end - resolved. Flare up makes her constipated. Notes partial improvement after antibiotics. Feels she is unable to get rid of all the stool. Cut out dairy and fructose from her diet. Unable to take the breath test for SIBO She was unable to take augmetin due to diarrhea 11/27/24 Taking Rifaximin and has 2 more days. She was taking regular milk and switched to Lactaid milk in tea. Had been eating apple pie and taken it away Cant handle anything with sugars in it Antibiotics help her symptoms and do not resolve completely with antibiotics. Pt advised to continue eliminating foods which lead to symptoms from her diet and take antibiotics every 4 to 6 months Follow-up appointment in 4 months Coding Level of Care Code Tele Est Pt Level 3 (70928) Diagnoses Vitamin B12 deficiency E53.8 Chronic constipation K59.09 Pharyngoesophageal dysphagia R13.14 Vitamin D deficiency E55.9 Colon cancer screening Z12.11 Abdominal bloating R14.0 Time Spent (min) 15
== END 2024-11-27 11:03 | disposition home or self-care (01) ==
LOC: HO.HGI 09:01
PROVIDERS: Visit Provider Internal Medicine Gastroenterology
DX: E53.8 Deficiency of other specified B group vitamins (principal); K59.09 Other constipation; R13.14 Dysphagia, pharyngoesophageal phase; E55.9 Vitamin D deficiency, unspecified
CPT/HCPCS: 98012

== ENCOUNTER → 2024-11-27 09:01 | Outpatient (BNVA) | payer OTHER, SELFPAY | PROVIDERS: Visit Provider Internal Medicine Gastroenterology ==

== ENCOUNTER 2025-01-19 07:51 | Outpatient (REF) | payer OTHER, SELFPAY ==
--- NOTE | ~2025-01-19 | US_ITS ---
CLINICAL HISTORY: N20.0 - Calculus of kidney US Renal Comparison: None Findings: Right kidney 8.8 cm length. Left kidney 9.4 cm length. Normal bilateral renal cortical echogenicity without evidence of hydronephrosis (mild left-sided pyelectasia). Simple 9 mm right renal cyst. 3 mm nonobstructive right renal stone and 2 nonobstructive left renal stones measuring up to 10 mm. IMPRESSION: No hydronephrosis. A few bilateral nonobstructive renal stones This document has been electronically signed by: Minal Barajas MD on 01/20/2025 06:26:57
--- OUTSIDE RECORDS SUMMARY | 2025-01-19 07:54 | XMS_ITS ---
Author Organization [facility] Address [address] [place] [address] Care Team Providers Care Specialty Sales Representative Name Role Phone Genoveva Amber Primary Care Provider Norma Lund [phone] REASON FOR VISIT [employer] Encounters Encounter Location Date Provider Diagnosis [facility] [address] [place] [address] 04/23/2024 Norma Beauchamp Plan Of Treatment No Information Progress Notes * Orly HERRERA BDOB:1960 (63 yo F)Acc No.[id number]:04/23/2024 Patient:?Orly Herrera :1960???Age:63 Y???Sex:Female Address:[address] [place] [address] [place] [address] * true * Date:? Generated for Michellei sybil/Leila/eTransmitting on:?01/19/2025 07:54 AM EDT
--- OUTSIDE RECORDS SUMMARY | 2025-01-19 07:55 | XMS_ITS ---
Author Organization [facility] Address [address] [place] [address] Care Team Providers Care Dealer Card Room Name Role Phone Amber Tomas Primary Care Provider Norma Lund Unavailable [phone] Allergies Allergen (clinical drug ingredient) Drug/Non Drug Allergy documented on EMR Reaction Allergy Type Onset Date Status Lamasil (uncoded) stomach upset Allergy Active Bactrim stomach upset Drug Allergy Act [place] Ceftin stomach issues Drug Allergy Ac tive cephalexin Cephalexin stomach upset Drug Allergy A ctive Keflex stomach issues Drug Allergy Ac tive nitrofurantoin, macrocrystals / nitrofurantoin, monohydrate Macrobid diarrhea/ uti Drug Allergy Active sacubitril / valsartan Entresto chest pain Drug Allergy Active losartan Losartan stomach/ diarrhea Drug Allergy Active metoprolol Metoprolol stomach issues/ diarrhea Drug Allergy Active REASON FOR VISIT r/s for sooner apt Medications Medication SIG (Take, Route, Frequency, Duration) Notes Start Date End Date Status Pepcid 10mg Not-Taking Tums Not-Taking PriLOSEC 10 MG as directed Orally e very other day Not-Taking amLODIPine Besylate 2.5 MG Orally Active Tylenol as needed Active ZyrTEC 5mg Not-Taking Nitro-Bid 2 % apply to affected to es Transdermal BID for as needed 05/02/2019 Not-Taking Avonex weekly injection Not -Taking Pravastatin Sodium 20 MG as needed Orally Not-Taking Carvedilol 12.5 MG 1 tablet with food Orally Twice a day Active Kesimpta Active MiraLax Active Pepcid Active Lasix 20 MG 1 tablet Orally Once a day Active Omeprazole 10 MG 1 capsule 30 minutes before morning meal Orally Once a day Active Kesimpta Active Social History Tobacco Use: Social History Observation Description Date Details (start date - stop date) Former Smoker NA - NA Tobacco Use/Smoking Question Answer Notes Are you a: former smoker Additional Findings: Tobacco Non-User Current no n-smoker Alcohol Screen Question Answer Notes Did you have a drink containing alcohol in the p ast year? No Points 0 Interpretation Negative Tobacco use other than smoking: Question Answer Notes Are you an other tobacco user? No Vital Signs Height 6ft1in in 05/20/2024 Weight 104 lbs 05/20/2024 BMI 13.72 kg/m2 05/20/2024 Encounters Encounter Location Date Provider [facility] [address] [place] [address] 05/20/2024 Norma Beauchamp Plan Of Treatment No Information Progress Notes * Orly HERRERA BDOB:1960 (64 yo F)Acc No.[id number]:05/20/2024 Progress Notes Patient:?Orly HERRERA B Provider:?Norma Beauchamp DPM :1960???Age:63 Y???Sex:Female D ate:05/20/2024 Address:[address] [place], [place] [id number] Pcp:Amber Tomas Subjective: * Chief Complaints: * ???1. R/s for sooner apt. * ROS:?General/Constitutional:?Nausea?denies.?Vomiting?denies.?Hunger Thirst?denies.?Loss appetite?denies.?Chills?denies.?Fatigue?admits.?Fever?denies.?Night Sweats?denies.?Unexplained weight loss?denies.?Unexplained weight gain?denies.?HEENTM:?Dentures?denies.?Dizziness?denies.?Glasses/contacts?admits.?Retinopathy?de nies.?Blurred/double vision?denies.?TMJ?denies.?Discharge/drainage?denies.?Implants?denies.?Sore throat?denies.?Dental implants?denies.?Hard of hearing ?admits.?Difficulty chewing/swallowing/speaking?denies.?Nose bleeds?denies.?Sore mouth?denies.?Respiratory:?On Oxygen?denies.?Pneumonia/pleurisy?denies.?Bronchitis?denies.?Emphysema?denies.?C oughing?denies.?Cough blood?denies.?Shortness of breath?denies.?Wheezing?denies.?Cardiovascular:?Pacemaker?denies.?MVP?denies.?WPW?denies.?CHF?denies.?Heart attack?denies.?Septal defect?denies.?Rapid beat?denies.?Chest pain ?denies.?Atrial Fib.?denies.?Murmur/Palpitations?denies.?Gastrointestinal:?Hemorrhoids?denies.?Stomach/Abdominal pain?admits.?Dark blood stool?denies.?Irritable bowel ?denies.?Constipation?denies.?Diarrhea?denies.?Hematology:?Swelling?denies.?Clots?denies.?Varicose Veins?denies.?Bruising?denies.?Bleeding problem?denies.?Genitourinary:?Blood urine?denies.?Frequent/Painfu/urination/bladder control?denies.?Kidney stones?denies.?Infection (UTI)?denies.?Nephropathy?denies.?sex trans dis (STD)?denies.?Prostate?denies.?Musculoskeletal:?Hammertoes?admits.?Bunions?admits.?Back Pain?denies.?Muscle Cramps/ Resting?denies.?Muscle cramps / walking?denies.?Generalized aches and pains?admits.?Weakness?denies.?Integ.:?Lazo?denies.?Scars?denies.?Corns/calluses?admits.?Ingrown nails?denies.?Painful nails?denies.?Open Sores?denies.?Rashes?denies.?Neurologic:?Difficulty sleeping?denies.?Brain disorder?denies.?Numbness?denies.?Balance trouble?denies.?Confusion?denies.?Fainting/blackouts?denies.?Tingling?denies.?Tr emors?denies.? * Medical History:?Multiple sc lerosis, Neuropathy, Reflux ( GERD), Raynauds syndrome, Chicken pox, Anemia, Back,Hip,and Knee pain, Heart disease, High blood pressure, Poor circulation, SiBo, Cardiac catherization. * Surgical History:?Cardiac ca therization 04/2021. * Family History:?Mother: dece ased, amyloidosis.?Father: , heart attack, arthritis, diagnosed with Family history of arthritis.?Siblings: arthritis, diabetes, cancer, foot problems, poor circulation, diagnosed with Family history of arthritis, Unspecified essential hypertension, Other malignant neoplasm of unspecified site.? * Social History:?Tobacco Use:?Tobacco Use/Smoking?Are you a:?former smoker ?Additional Findings: Tobacco Non-User?Current non-smoker ?Tobacco use other than smoking?Are you an other tobacco user??No ???Drugs/Alcohol:?Drugs?Have you used drugs other than those for medical reasons in the past 12 months??No ?Alcohol Screen?Did you have a drink containing alcohol in the past year??No ?Points?0 ?Interpretation?Negative ???Miscellaneous:?Caffeine: yes, frequency:, 1-2 cups per day, tea. ?Children: yes. ?Exercise: no. ?Marital status: . 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 * Medications:?Taking Kesimpta , Taking Pepcid , Taking Kesimpta , Taking MiraLax , Taking Lasix 20 MG Tablet 1 tablet Orally Once a day , Taking Omeprazole 10 MG Capsule Delayed Release 1 capsule 30 minutes before morning meal Orally Once a day , Taking Carvedilol 12.5 MG Tablet 1 tablet with food Orally Twice a day , Taking amLODIPine Besylate 2.5 MG Tablet Orally , Taking Tylenol as needed , Not- Taking/PRN Avonex weekly injection , Not-Taking/PRN Pravastatin Sodium 20 MG Tablet as needed Orally , Not-Taking/PRN ZyrTEC 5mg , Not-Taking/PRN Nitro-Bid 2 % Ointment apply to affected toes Transdermal BID , Not-Taking/PRN PriLOSEC 10 MG Packet as directed Orally every other day , Not-Taking/PRN Pepcid 10mg , Not-Taking/PRN Tums * Allergies:?Keflex: stomach i ssues, Ceftin: stomach issues, Lamasil: stomach upset, Bactrim: stomach upset - Allergy, Cephalexin: stomach upset - Allergy, Metoprolol: stomach issues/ diarrhea - Allergy, Losartan: stomach/ diarrhea - Allergy, Entresto: chest pain - Allergy, Macrobid: diarrhea/ uti - Allergy. Objective: * Vitals:?Ht: 6ft1in, Wt:104, BMI:13.72, Shoe size: 7-7.5M, Ht-cm: 185.42 cm, Wt- k.17 kg. Assessment: Plan: * Treatment: * Images: * The named appointment provid er may or may not be the originator of this progress note, and it is not deemed complete until electronically signed by the appointment provider. Sign off status: Pending * Provider:?Norma Beauchamp DPM Date:? Generated for Gonzalo devine/Leila/Kem on:?01/19/2025 07:54 AM EDT
--- OUTSIDE RECORDS SUMMARY | 2025-01-19 07:55 | XMS_ITS | Patient Health Record ---
Author [facility] Address [address] [place] [address] Care Team Providers Care Business Investor Name Role Phone Amber Tomas Primary Care Provider Norma Lund Unavailable [phone] Allergies Allergen (clinical drug ingredient) Drug/Non Drug [...] Metoprolol stomach issues/ diarrhea Drug Allergy Active Reason For Referral No Information Medications Medication SIG (Take, Route, Frequency, Duration) Notes Start Date End Date Status Kesimpta Active Pepcid 10mg Not-Taking MiraLax Active Tums Not-Taking Kesimpta Active PriLOSEC 10 MG as directed Orally e very other day Not-Taking Pepcid Active amLODIPine Besylate 2.5 MG Orally Active Carvedilol 12.5 MG 1 tablet with food Orally Twice a day Active Physical Therapy . . . 2-3x/week for 3- 4 weeks 05/16/2024 Active Lasix 20 MG 1 tablet Orally Once a day Active Tylenol as needed Active Kesimpta Active Omeprazole 10 MG 1 capsule 30 minutes before morning meal Orally Once a day Active Carvedilol Active Lasix Active ZyrTEC 5mg Not-Taking Nitro-Bid 2 % apply to affected to es Transdermal BID for as needed 05/02/2019 Not-Taking Avonex weekly injection Not -Taking Jose Luis Aspirin Active Pravastatin Sodium 20 MG as needed Orally Not-Taking Social History Tobacco Use: Social History Observation [...] Are you an other tobacco user? No Problems Problem Type SNOMED Code ICD Code Onset Dates Problem Status W/U Status Risk Notes Problem [id number] Hallux valgus (acquired), left foot (M20.12) Active confirmed Problem 181318407118015 Hallux valgus (acquired), right foot (M20.11) Active confirmed Problem [id number] Multiple sclerosis (G35) Active confirmed Problem [id number] Raynaud's diseas e without gangrene (I73.00) Active confirmed Problem Multiple sclerosis (87047011) Multiple sclerosis exacerbation (G35) Active confirmed Problem Osteoarthritis of midtarsal joint of left foot (2411143880488275) Osteoarthritis of midtarsal joint of left foot (M19.072) Active confirmed Problem Osteoarthritis of midtarsal joint of right foot (1586053997266680) Osteoarthritis of midtarsal joint of right foot (M19.071) Active confirmed Vital Signs Blood pressure diastolic 90 mm Hg 05/16/2024 Height 5ft1in in 05/16/2024 Blood pressure systolic 130 mm Hg 05/16/2024 Weight 104 lbs 05/16/2024 BMI 19.65 kg/m2 05/16/2024 Encounters Encounter Location Date Provider Diagnosis [facility] [place] [address] [place] [address] 05/16/2024 Normaellis Beauchamp Pain in left foot M79.672 ; Multiple sclerosis G35 ; Pain in left ankle and joints of left foot M25.572 ; Bursitis of left foot M77.52 ; Osteoarthritis of midtarsal joint of left foot M19.072 ; Pain in right foot M79.671 ; Pain in right ankle and joints of right foot M25.571 ; Bursitis of right foot M77.51 and Osteoarthritis of midtarsal joint of right foot M19.071 [facility] [address] [address] 02/27/2024 Norma Beauchamp [facility] [address] [address] 04/23/2024 Norma Beauchamp Assessments Encounter Date Diagnosis (ICD Code) Assessment Notes Treatment Notes Treatment Clinical Notes Section Notes 05/16/2024 Multiple sclerosis (ICD-10 - G35) 05/16/2024 Pain in left foot (ICD-10 - M79.672) 05/16/2024 Pain in left ankle and joints of left foot (ICD-10 - M25.572) 05/16/2024 Bursitis of left foot (ICD-10 - M77.52) 05/16/2024 Osteoarthritis of midtarsal joint of left foot (ICD-10 - M19.072) 05/16/2024 Pain in right foot (ICD-10 - M79.671) 05/16/2024 Pain in right ankle and joints of right foot (ICD-10 - M25.571) 05/16/2024 Bursitis of right foot (ICD-10 - M77.51) 05/16/2024 Osteoarthritis of midtarsal joint of right foot (ICD-10 - M19.071) Plan Of Treatment Pending Test Test Name Order Date X ray : Foot, left 3V 05/16/2024 X ray : Foot, right 3V 05/16/2024 Insurance Providers Payer Name Payer Address Payer Phone Subscriber Number Group Number Insured Name Patient Relationship to Insured Coverage Start Date Coverage End Date [facility] re-[id number] [address] [address] [place] [address] [id number] Orly Herrera Self - patient is the insured Medical (General) History Medical History History ICD Code Multiple sclerosis Neuropathy Reflux ( GERD) Raynauds syndrome Chicken pox Anemia Back,Hip,and Knee pain Heart disease High blood pressure Poor circulation SiBo Cardiac catherization Surgical History Surgery Date(Month/Year) Cardiac catherization 04/2021 Hospitalization History Reason Date(Month/Year) [facility] [place]- Kidney stone 05/06/24
--- OUTSIDE RECORDS SUMMARY | 2025-01-19 07:55 | XMS_ITS ---
[facility] Address [address] [place] [address] Care Team Providers Care Master Baker Name Role Phone Amber Tomas Primary Care Provider Norma Lund Unavailable [phone] Allergies Allergen (clinical drug ingredient) Drug/Non Drug [...] diarrhea Drug Allergy Active REASON FOR VISIT Foot pain Medications Medication SIG (Take, Route, Frequency, Duration) Notes Start Date End Date Status amLODIPine Besylate 2.5 MG Orally Active Avonex weekly injection Not -Taking ZyrTEC 5mg Not-Taking Pravastatin Sodium 20 MG as needed Orally Not-Taking Kesimpta Active Lasix Active Jose Luis Aspirin Active Tylenol as needed Active Physical Therapy . . . 2-3x/week for 3- 4 weeks 05/16/2024 Active Carvedilol Active Tums PRN Active Pepcid 10mg PRN Active PriLOSEC 10 MG as directed Orally e very other day Active Nitro-Bid 2 % apply to affected to es Transdermal BID for as needed 05/02/2019 Not-Taking Social History Tobacco Use: Social History [...] Problem Status W/U Status Risk Notes Problem Osteoarthritis of midtarsal joint of left foot (2844820613738977 ) Osteoarthritis of midtarsal joint of left foot (M19.072) Active confirmed Problem Osteoarthritis of midtarsal joint of right foot (7537104074882805 ) Osteoarthritis of midtarsal joint of right foot (M19.071) Active confirmed Problem [id number] Multiple sclerosis (G35) Active confirmed Problem Multiple sclerosis (13406409) Multiple sclerosis exacerbation (G35) Active confirmed Vital Signs Height 5ft1in in 05/16/2024 Weight 104 lbs 05/16/2024 BMI 19.65 kg/m2 05/16/2024 Blood pressure systolic 130 mm Hg 05/16/20 24 Blood pressure diastolic 90 mm Hg 024 Encounters Encounter Location Date Provider Diagnosis [facility] [address] [address] 05/16/2024 Norma Beauchamp Pain in left foot M79.672 ; [...] of midtarsal joint of right foot M19.071 Assessments Encounter Date Diagnosis (ICD Code) Assessment Notes Treatment Notes Treatment Clinical Notes Section Notes 05/16/2024 Pain in left foot (ICD-10 - M79.672) 05/16/2024 Multiple sclerosis (ICD-10 - G35) 05/16/2024 Pain in left ankle and joints [...] foot (ICD-10 - M19.071) Plan Of Treatment Medication Medication Name Sig Start Date Stop Date Notes Physical Therapy . . . 2-3x/week for 3-4 weeks 05/16/2024 Pending Test Test Name Order Date X ray : Foot, left 3V 05/16/2024 X ray : Foot, right 3V 05/16/2024 Next Appt Details Follow Up: prn, Reason: Progress Notes * Orly HERRERA BDOB:1960 (63 yo F)Acc No.[id number]:05/16/2024 Progress Notes Patient:?Orly Herrera B Provider:?Norma Beauchamp DPM :1960???Age:63 Y???Sex:Female D ate:05/16/2024 Address:[address] [place], [place] [id number] Pcp:Amber Tomas Subjective: * Chief Complaints: * ???Foot pain * HPI: ???Painful Nails:?Pt States Last PCP Visit:?Date:?03/05/2024 ???Foot Pain:?Nature:?aching , stiffness , swelling , throbbing.?Location:?Top , Midfoot, B/L.?Duration:?several years.?Course:?worse.?Aggrevated:?standing , walking , shoes.?Treatments:?rest/alter normal daily activity.? * ROS:?General/Constitutional:?Nausea?denies.?Vomiting?denies.?Hunger Thirst?denies.?Loss appetite?denies.?Chills?denies.?Fatigue?admits.?Fever?denies.?Night Sweats?denies.?Unexplained weight loss?denies.?Unexplained weight gain?denies.?HEENTM:?Dentures?denies.?Dizziness?denies.?Glasses/contacts?admits.?Retinopathy?de nies.?Blurred/double vision?denies.?TMJ?denies.?Discharge/drainage?denies.?Implants?denies.?Sore throat?denies.?Dental implants?denies.?Hard of hearing ?denies.?Difficulty chewing/swallowing/speaking?denies.?Nose bleeds?denies.?Sore mouth?denies.?Respiratory:?On Oxygen?denies.?Pneumonia/pleurisy?denies.?Bronchitis?denies.?Emphysema?denies.?C oughing?denies.?Cough blood?denies.?Shortness of breath?denies.?Wheezing?denies.?Cardiovascular:?Pacemaker?denies.?MVP?denies.?WPW?denies.?CHF?denies.?Heart attack?denies.?Septal defect?denies.?Rapid beat?denies.?Chest pain ?denies.?Atrial Fib.?denies.?Murmur/Palpitations?denies.?Gastrointestinal:?Hemorrhoids?denies.?Stomach/Abdominal pain?admits.?Dark blood stool?denies.?Irritable bowel ?denies.?Constipation?denies.?Diarrhea?denies.?Hematology:?Swelling?denies.?Clots?denies.?Varicose Veins?denies.?Bruising?denies.?Bleeding problem?denies.?Genitourinary:?Blood urine?denies.?Frequent/Painfu/urination/bladder control?denies.?Kidney stones?denies.?Infection (UTI)?denies.?Nephropathy?denies.?sex trans dis (STD)?denies.?Prostate?denies.?Musculoskeletal:?Hammertoes?admits.?Bunions?admits.?Back Pain?denies.?Muscle Cramps/ Resting?denies.?Muscle cramps / walking?denies.?Generalized aches and pains?admits.?Weakness?denies.?Integ.:?Lazo?denies.?Scars?denies.?Corns/calluses?admits.?Ingrown nails?denies.?Painful nails?denies.?Open Sores?denies.?Rashes?denies.?Neurologic:?Difficulty sleeping?denies.?Brain disorder?denies.?Numbness?denies.?Balance trouble?denies.?Confusion?denies.?Fainting/blackouts?denies.?Tingling?denies.?Tr emors?denies.? * Medical History:? * Surgical History:?Cardiac ca therization 04/2021 * Hospitalization/Major Diagno stic Procedure:?[facility] [place]- Kidney stone 05/06/24 * Family History:?Mother: dece ased, amyloidosis.?Father: , [...] cups per day, tea. ?Children: yes. ?Exercise: yes, Gym, walking. ?Marital status: . 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 * Medications:?TakingBayer Asp irin Lasix Carvedilol Kesimpta amLODIPine Besylate 2.5 MG Tablet Orally Pepcid 10mg , Notes: PRNTums , Notes: PRNPriLOSEC 10 MG Packet as directed Orally every other dayTylenol as neededTaking Jose Luis Aspirin Taking Lasix Taking Carvedilol Taking Kesimpta Taking amLODIPine Besylate 2.5 MG Tablet Orally Taking Pepcid 10mg , Notes: PRNTaking Tums , Notes: PRNTaking PriLOSEC 10 MG Packet as directed Orally every other dayTaking Tylenol as neededNot-Taking/PRNAvonex weekly injectionPravastatin Sodium 20 MG Tablet as needed Orally ZyrTEC 5mg Nitro-Bid 2 % Ointment apply to affected toes Transdermal BIDMedication List reviewed and reconciled with the patientNot-Taking/PRN Avonex weekly injectionNot-Taking/PRN Pravastatin Sodium 20 MG Tablet as needed Orally Not-Taking/PRN ZyrTEC 5mg Not-Taking/PRN Nitro-Bid 2 % Ointment apply to affected toes Transdermal BIDMedication List reviewed and reconciled with the patient * Allergies:?Keflex: stomach i ssuesCeftin: stomach issuesLamasil: stomach upsetBactrim: stomach upset - AllergyCephalexin: stomach upset - AllergyMetoprolol: stomach issues/ diarrhea - AllergyLosartan: stomach/ diarrhea - AllergyEntresto: chest pain - AllergyMacrobid: diarrhea/ uti - Allergyyes[Allergies Verified] Objective: * Vitals:?Ht: 5ft1in, Wt:104, BMI:19.65, Shoe size: 7.5, BP:130/90 mm Hg, Ht-cm: 154.94 cm, Wt-k.17 kg. * Examination: ???Orthopedic: ?MUSCLE STRENGTH:?5/5 all groups in a symmetrical fashion , B/L.?FOOT MORPHOLOGY:? Prominent, painful 1st Met-Cuneiform joint with inflammation, B/L , B/L, Pes Planus structure, Semi-rigid.?BUNION:? Medially prominent 1st MPJ, Lateral tracking 1st MPJ nonreducable, B/L.?DIGITAL DEFORMITIES:? Digital contracture, PIPJ, 2-5 B/L, incompl- reducable to push-up test, no over, nor underlapping, Reveals pain/swelling/redness/enlargement of PIPJ, T1.?X-Rays - IMAGING REPORT: ?Clinical Indication(s):? Evaluate for Fracture, Evaluate Biomechanical Deformity.?Views:? 3 views of Foot, AP, LAT, LO, B/L.?Findings:?mild generalized decrease in bone density , navicular/cuneiform plantar subluxation with anterior cyma line , eburnation dorsal 1st MT/Cun. jt , dorsal degenerative changes of the tarsal joints.?Fracture:?Negative fractures identified.?Neurological: ?SENSORY:?Neurological exam demonstrates , reduced light touch sensation , reduced sharp/dull pin prick discrimination , reduced vibration sensation , reduced proprioception sensation , in a stocking fashion , plantar aspects , 5.07 monofilament test performed at plantar aspects of 5 varied sites per foot shows sensation , reduced , at Forefoot.?General Examination: ?GENERAL APPEARANCE:?Reveals a pleasant, alert, well nourished, well- developed, well hydrated individual, who demonstrates proper attention to hygiene/body habitus, and is in no acute distress, Pt serves as own historian for office visit today.?ORIENTED:?person, place, and time.?Vascular: ?DP PULSES:?3/4, B/L.?PT PULSES:?3/4, B/L.?CAPILLARY FILL TIME:?immediate, all digits, B/L.?SKIN TEMPERTURE GRADIENT OF THE LOWER EXTERMITIES:?normal, warm to cool, proximal to distal, B/L, B/L.? Assessment: * Assessment: 1.?Multiple sclerosis - G35 (Primary)?2.?Pain in left foot - M79.672?3.?Pain in left ankle and joints of left foot - M25.572?4.?Bursitis of left foot - M77.52?5.?Osteoarthritis of midtarsal joint of left foot - M19.072?6.?Pain in right foot - M79.671?7.?Pain in right ankle and joints of right foot - M25.571?8.?Bursitis of right foot - M77.51?9.?Osteoarthritis of midtarsal joint of right foot - M19.071? Plan: * Treatment: 2.?Pain in left foot?Imaging: X ray : Foot, left 3V 3.?Pain in right foot?Imaging: X ray : Foot, right 3V * Procedure Codes:?89647 X-RAY EXAM OF LEFT FOOT 3V, Modifiers: 26 , TG39737 X-RAY EXAM OF RIGHT FOOT 3V, Modifiers: 26 , RT * Preventive Medicine:? ??Counseling:?Discussion:?-04: Office or other outpatient visit for the evaluation and management of a new patient, which required a medically appropriate history and/or examination and MODERATE level of DECISION MAKING for: 1 OR MORE CHRONIC PROBLEM(S) THATS WORSENING, 2 STABLE CHRONIC PROBLEMS, A NEWLY DIAGNOSED PROBLEM WITH UNCERTAIN PROGNOSIS, AN ACUTE COMPLICATED INJURY WITH MULTIPLE TREATMENT OPTIONS, OR AN ACUTE PROBLEM WITH ACCOMPANYING SYSTEMIC SYMPTOMS, THAT POSE(S) A MODERATE RISK OF MORBIDITY. THIS CONDITION MAY ALSO INCLUDE RX DRUG MANAGEMENT, OR A DECISON FOR MINOR SURGERY. The visit on the day of the encounter encompassed interpreting the data and educating the patient as to the nature of their condition, treatment options available according to their individual PMH, meds, allergies, and overall health/living conditions, as well as any potential risks or complications that may occur from a failure to adhere to, and participate in, the recommended course of therapy. The discussion included a complete verbal, and/or written explanation of the examination results, any x-rays taken, the proposed diagnosis, and outline of the treatment plan. A schedule for future care needs was also explained. The patient verbalized an understanding of the instructions at this time and agreed to be an active participant in their treatment. If the patient should think of any questions or concerns after the visit, I have encouraged the patient to call the office.?Arthritis:?The patient was counseled on the various etiologies for their Arthritis including genetic, history of injury or trauma, abnormal foot biomechanics leading to excessive joint wear, and use/overuse. We discussed the various treatment options from no treatment, to topical analgesics such as Biofreeze gel, Aspercream, Voltaren gel, Lidoderm patches, CBD oils, THC creams, and Custom-compounded topical cream preparations to natural oral products such as Glucosamine Sulfate/Chondroitin/MSM/Collegen to analgesic Tylenol, to anti-inflammatory medications such as Ibuprofen/Naproxen, and the use of oral steroids if needed. Cardiac, Kidney, and GI issues were discussed RE: potential complications of oral anti-inflammatories. We discussed several other treatment options consisting of accom shoes, supportive innersoles, AFO bracing/support, cortisone injection therapy, and surgical resection of the arthritic joint(s) or fusion reconstruction if necessary. We discussed the advantages and disadvantages of conservative (vs) surgical treamtents including pain relief, improved function/activities of daily life, return to exercise to failure, expense, systemic complications, infection, [id number], prolongued postop course. Patient questions re: the various treatment options available, their successes and potential failures, and fci effects were discussed and the answers were verbally confirmed understood.?P.R.I.C.E.:?The patient was counseled on the use of P.R.I.C.E. and NSAIDS (if well tolerated) to aid in the recovery from their painful condition.?Physical Therapy:?Discussed the potential short and vermin exterminator benefits of physical therapy including pain relief, improved function for activity of daily life, return to exercise, increased quality of life. We discussed the usual/customary PT treatment schedule of 2-3 times per week for 4 weeks to as much as 12 weeks depending on insurance approval/coverage. We discussed various PT treatment modalities including, but not limited to, gate training, muscular stabilization, stretching, deep tissue therapeutic massage, ultrasound, TENS, iontophoresis, fluidotherapy, laser therapy, hydrotherapy, contrast ice/heat bath, and passive as well as active ROM exercises. Questions re: PT including visit amounts, rates of success, and goals were answered to the patient's satisfaction. The patient verbally confirmed the medical necessity and use of PT therapy treatment for their MSK condition.?Shoe Gear Counseling:?The patient and I reviewed the types of shoes they should be wearing. My recommendation included obtaining a well-fitted shoe with a good supportive, non-foldable nor twistable sole, plenty of toe/room for the forefoot, and proper arch support. Based on todays examination, I recommended the patient look for new shoes, by having their feet professionally measured. We discussed that generally the best time of the day for a shoe fitting is the afternoon. Different shoes types and brands to best match the patients occupation and vocation were discussed. Specific brand selection will be up to the patient, their individual foot condition/deformities, and fit. The patient and I reviewed the standard new shoe break in period by wearing them for a few hours a day while checking for redness or sores as wear time is increased. The patient verbally confirmed to understanding the information discussed.?X-rays:?Discussed and reviewed the X-rays with the patient. We discussed how the findings relate to the patients symptoms/complaints. Answered any and all questions..? * Follow Up:?prn * Images: * Sign off status: Completed true * Provider:?Norma Beauchamp DPM Date:?10/2024 Generated for Gonzalo devine/Leila/eTransmitting on:?01/19/2025 07:55 AM EDT History and Physical Notes * HPI (History of Present Illness) Category Sub-Category Detail Notes Category Not es Painful Nails Pt States Last PCP Visit: Date:: 03/05/2024 Foot Pain Nature: aching , stiffne ss , swelling , throbbing Location: Top , Midfoot, B/L Duration: several years Course: worse Aggravated: standing , walking , shoes Treatments: rest/alter normal da olga activity Examination Category Sub-Category Detail Notes Category Not es Neurological SENSORY: Neurological exa m demonstrates , reduced light touch sensation , reduced sharp/dull pin prick discrimination , reduced vibration sensation , reduced proprioception sensation , in a stocking fashion , plantar aspects , 5.07 monofilament test performed at plantar aspects of 5 varied sites per foot shows sensation , reduced , at Forefoot Orthopedic FOOT MORPHOLOGY: Prominent, pain ful 1st Met-Cuneiform joint with inflammation, B/L , B/L, Pes Planus structure, Semi-rigid BUNION: Medially prominent 1 st MPJ, Lateral tracking 1st MPJ nonreducable, B/L DIGITAL DEFORMITIES: Digital contracture , PIPJ, 2-5 B/L, incompl-reducable to push-up test, no over, nor underlapping, Reveals pain/swelling/redness/enlargement of PIPJ , T1 MUSCLE STRENGTH: 5/5 all groups in a symmetrical fashion , B/L General Examination GENERAL APPEARANCE: Reveals a pleasant, alert, well nourished, well-developed, well hydrated individual, who demonstrates proper attention to hygiene/body habitus, and is in no acute distress, Pt serves as own historian for office visit today ORIENTED: person, place, and t bridger Vascular DP PULSES (B): 3/4, B/L PT PULSES (B): 3/4, B/L CAPILLARY FILL TIME: immediate, all digi ts, B/L TEMPERTURE GRADIENT (C): normal, warm to cool, proximal to distal, B/L, B/L X-Rays - IMAGING REPORT Findings: mild gen eralized decrease in bone density , navicular/cuneiform plantar subluxation with anterior cyma line , eburnation dorsal 1st MT/Cun. jt , dorsal degenerative changes of the tarsal joints Fracture: Negative fractures i dentified Views: 3 views of Foot, AP, LAT, LO, B/L Clinical Indication(s): Evaluate for Fra cture, Evaluate Biomechanical Deformity
--- OUTSIDE RECORDS SUMMARY | 2025-01-19 07:55 | XMS_ITS | Data Portability ---
Author Organization [facility] Address [address] [place] [address] Care Team Providers Care Tractor Trailer Driver Name Role Phone ALISHA FATIMA Primary Care Provider [phone] Assessment No assessment recorded. Plan of Treatment Reminders Order Date Submit Date Provider Last Modified By Organization Details Last Modified Time Details Appointments None recorded. Lab urinalysis , dipstick 2021 [email or web address] [id number]_[facility], [address] [place] [address], [address], 12:59:57 culture, urine [address] [facility], [address] [place] [address], [place], [address], 06:07:15 Referral None recorded. Procedures None recorded. Surgeries None recorded. Imaging None recorded. Medication Orders Macrobid [address] [facility] #[id number], [address] [facility] , [place], [address], 13:14:53 Patient TargetsNo targets recorded. Patient Instructions Encounter Date Encounter Id Patient Instructions Last Modified By Organization Details Last Modified Time 10/28/2022 [id number] Urinary Tract Infection (UTI) in Women: Care Instructions [email or web address] Not available 10/28/2022 12:58:38 Reason for Referral None Reported. Results Created Date Observation Date Name Description Value Unit Range Abnormal Flag Note LastModifiedBy Organization Detail LastModifiedTime 10/28/20 22 10/31/2022 URINE CULTU RE, SUZANNE NE urine culture, routine FINAL REPORT abnormal Not Available [facility] ([facility]) [address] [facility], [place], [address], 11/01/2022 06:07:15 10/28/20 22 10/31/2022 URINE CULTU RESUZANNE result 1 COMMEN T abnormal Beta hemol ytic Strep tococ cus, group B 10,00 0-25, 000 colon y formi ng units per mL Penic illin and ampic illin are drugs of choic e for treat ment of beta- hemol ytic strep tococ obey infec tions . Susce ptibi lity testi ng of penic illin s and other beta- lacta m agent s appro heidi by the FDA for treat ment of beta- hemol ytic strep tococ obey infec tions need not be perfo rmed suzanne castañedaly becau se nonsu scept ible isola trung are extre sourav rare in any beta- hemol ytic strep tococ cus and have not been repor zita for Strep tococ cus pyoge ricardo (grou p A). (CLSI ) Not Available [facility] ([facility]) [address] [facility], [place], [address], 11/01/2022 06:07:15 10/28/20 22 10/28/2022 urina lysis , dipst ick Unknown Analyte Light Yellow Not Available [facility] [address] [facility] [place], [address], 10/28/2022 12:32:36 10/28/20 22 10/28/2022 urina lysis , dipst ick Unknown Analyte Slight ly Cloudy Not Available [address] [facility] [place], [address], 10/28/2022 12:32:36 10/28/20 22 10/28/2022 urina lysis , dipst ick Unknown Analyte Negati ve Not Available [facility] [address] [facility] [place], [address], 10/28/2022 12:32:36 10/28/20 22 10/28/2022 urina lysis , dipst ick Unknown Analyte Negati ve Not Available susana christopher [address], [place], [address], 10/28/2022 12:32:36 10/28/20 22 10/28/2022 urina lysis , dipst ick Unknown Analyte Negati ve Not Available susana christopher [address], [place], [address], 10/28/2022 12:32:36 10/28/20 22 10/28/2022 urina lysis , dipst ick Unknown Analyte 1.015 Not Available [place] [address] [place], [address], 10/28/2022 12:32:36 10/28/20 22 10/28/2022 urina lysis , dipst ick Unknown Analyte Large Not Available _ [place] [address] [place], [address], 10/28/2022 12:32:36 10/28/20 22 10/28/2022 urina lysis , dipst ick Unknown Analyte 6.5 Not Available [place] [address] [place], [address], 10/28/2022 12:32:36 10/28/20 22 10/28/2022 urina lysis , dipst ick Unknown Analyte Negati ve Not Available susana [address] [place], [address], 10/28/2022 12:32:36 10/28/20 22 10/28/2022 urina lysis , dipst ick Unknown Analyte 0.2 E.U./d L Not Available susana christopher [address] [place], [address], 10/28/2022 12:32:36 10/28/20 22 10/28/2022 urina lysis , dipst ick Unknown Analyte Negati ve Not Available susana christopher [address] [place], [address], 10/28/2022 12:32:36 10/28/20 22 10/28/2022 urina lysis , dipst ick Unknown Analyte Small Not Available fredrick [address] [place], [address], 10/28/2022 12:32:36 10/28/20 22 10/28/2022 urina lysis , dipst ick Unknown Analyte Normal = light yellow Not Available susana christopher [address] [place], [address], 10/28/2022 12:32:36 10/28/20 22 10/28/2022 urina lysis , dipst ick Unknown Analyte Normal = clear Not Available susana christopher [address] [place], [address], 10/28/2022 12:32:36 10/28/20 22 10/28/2022 urina lysis , dipst ick Unknown Analyte Normal = negati ve Not Available susana christopher [address] [place], [address], 10/28/2022 12:32:36 10/28/20 22 10/28/2022 urina lysis , dipst ick Unknown Analyte Normal = Negati ve Not Available susana christopher [address] [place], [address], 10/28/2022 12:32:36 10/28/20 22 10/28/2022 urina lysis , dipst ick Unknown Analyte Normal = Negati ve Not Available susana christopher [address] [place], [address], 10/28/2022 12:32:36 10/28/20 22 10/28/2022 urina lysis , dipst ick Unknown Analyte Normal = 1.010, 1.015, 1.020 Not Available susana christopher [address] [place], [address], 10/28/2022 12:32:36 10/28/20 22 10/28/2022 urina lysis , dipst ick Unknown Analyte Normal = Negati ve Not Available susana christopher [address] [place], [address], 10/28/2022 12:32:36 10/28/20 22 10/28/2022 urina lysis , dipst ick Unknown Analyte Normal = 6.5, 7.0, 7.5, 8.0 Not Available susana christopher [address] [place], [address], 10/28/2022 12:32:36 10/28/20 22 10/28/2022 urina lysis , dipst ick Unknown Analyte Normal = Negati ve Not Available susana christopher [address] [place], [address], 10/28/2022 12:32:36 10/28/20 22 10/28/2022 urina lysis , dipst ick Unknown Analyte Normal = 0.2, 1.0 Not Available susana christopher [address] [place], [address], 10/28/2022 12:32:36 10/28/20 22 10/28/2022 urina lysis , dipst ick Unknown Analyte Normal = Negati ve Not Available susana christopher [address] [place], [address], 10/28/2022 12:32:36 10/28/20 22 10/28/2022 urina lysis , dipst ick Unknown Analyte Normal = Negati ve Not Available [address] [place] [address], [address], 10/28/2022 12:32:36 Result Notes None recorded. Problems Name Problem SNOMED Code Status Onset Date Resolution Date Notes Provider Name and Address Organization Details Recorded Time Raynaud's disease 934363165 Active 022 ANNALEE LUPICA null, [place] - [facility] 12:40:55 Heart failure 76264359 Active LBBB ANNALEE LUPICA null, PA - [facility] 12:41:14 Multiple sclerosis 09757344 Active ANNALEE LUPICA null, PA - [facility] 12:41:24 Problem Notes None recorded. Medical Equipment None Reported. Allergies Allergen ID Allergen Name Allergen Category Reaction Reaction Severity Criticality Documentation Date Start Date Code Code System Note Provider Name and Address Organization Details Recorded Time 96124 cephalexi n medicatio n Not available Not available Not available 10/28/2022 2231 RxNorm ANNALEE LUPICA null, PA - [facility] 2 12:35:29 60462 Ceftin medicatio n Not available Not available Not available 10/28/2022 61881 6 RxNorm ANNALEE LUPICA null, PA - [facility] 2 12:35:37 00405 Cefzil medicatio n Not available Not available Not available 10/28/2022 00739 1 RxNorm ANNALEE LUPICA null, PA - [facility] 2 12:35:45 05217 Lamisil medicatio n Not available Not available Not available 10/28/2022 84794 6 RxNorm ANNALEE LUPICA null, PA - [facility] 2 12:35:53 54604 Prevacid medicatio n Not available Not available Not available 10/28/2022 01604 RxNorm ANNALEE LUPICA null, PA - [facility] 2 12:36:01 87280 lisinopri l medicatio n Not available Not available Not available 10/28/2022 09094 RxNorm ANNALEE ALONSO null, PA - [facility] 2 12:36:11 98088 metoprolo l Not available Not available Not available Not available 10/28/2022 6918 RxNorm ANNALEE AGUIRREICA null, PA - [facility] 2 12:36:20 69839 losartan medicatio n Not available Not available Not available 10/28/2022 00304 RxNorm ANNALEE ALONSO null, PA - [facility] 2 12:36:29 35959 Entresto medicatio n Not available Not available Not available 10/28/2022 13432 41 RxNorm ANNALEE ALONSO null, PA - [facility] 2 12:36:37 Medications Name Sig Start Date Stop Date Status Note LastModified by Organization Details LastModified Time carvedilol 6.25 mg tablet TAKE 1 TABLET BY MOUTH TWICE A DAY active Not Available Not Available No t Available amlodipine 2.5 mg tablet TAKE 1 TABLET BY MOUTH EVERY DAY active Not Available Not Available No t Available terazosin 1 mg capsule TAKE 1 CAPSULE BY MOUTH AT BEDTIME active Not Available Not Available No t Available spironolact one 25 mg tablet TAKE 1/2 TABLET BY MOUTH DAILY active Not Available Not Available No t Available carvedilol 3.125 mg tablet TAKE 1 TABLET BY MOUTH TWICE DAILY. active Not Available Not Available No t Available Macrobid 100 mg capsule Take 1 capsule every 12 hours by oral route for 7 days. 2021 active Not Available Not Available Not Avai lable ciclopirox 8 % topical solution APPLY TO AFFECTED AREA EVERY DAY active Not Available Not Available No t Available zinc sulfate 50 mg zinc (220 mg) tablet TAKE 1 TABLET BY MOUTH TWICE A WEEK active Not Available Not Available No t Available omeprazole 10 mg capsule,del ayed release TAKE 1 CAPSULE BY MOUTH EVERY DAY active Not Available Not Available No t Available furosemide 20 mg tablet TAKE 1 TABLET BY MOUTH EVERY DAY active Not Available Not Available No t Available albuterol sulfate HFA 90 mcg/actuati on aerosol inhaler TAKE 2 PUFF INHALATIO NS EVERY 4 HOURS NEEDED FOR WHEEZING (USE WITH SPACER) active Not Available Not Available No t Available ipratropium bromide 21 mcg (0.03 %) nasal spray USE 2 SPRAYS IN EACH NOSTRIL UP TO 4 TIMES A DAY 10/28 completed Not Available Not Available Not Available Avonex 30 mcg/0.5 mL intramuscul ar syringe kit active Not Available Not Available Not Available cholecalcif nehemias (vitamin D3) 250 mcg (10,000 unit) capsule TAKE 1 TABLET BY MOUTH TWICE A WEEK active Not Available Not Available No t Available Vitals Date Recorded Body height Body mass index (BMI) Body weight Body temperature Oxygen saturation Oxygen saturation in Arterial blood by Pulse oximetry Heart rate Respiratory rate Systolic blood pressure Diastolic blood pressure Provider Name and Address Organization Details Last Updated DateTime 154.94 cm 20.4 kg/m2 24664.9 8 g 97.3 [degF] 98 % 98 % 68 /min 16 /min 145 mm[Hg] 83 mm[Hg] ANNALEE ALONSO PA - [facility] 12:44:41 Social History Question Answer Notes LastModified by Organizat ion Details LastModified Time Tobacco Smoking Status Former Smoker ANNALEE booth, PA - [facility] 10/28/2022 12:42:20 What Is Your Level Of Alcohol Consumption? None Information not available 10/28/2022 Do You Use Any Illicit Or Recreational Drugs? No [email or web address] Information not available 10/28/2022 Have You Recently Traveled Abroad? No [email or web address] Information not available 10/28/2022 Do You Or Have You Ever Used Any Other Forms Of Tobacco Or Nicotine? No [email or web address] Information not available 10/28/2022 Sex: Unknown Functional Status None recorded. Mental Status None recorded. Family History Relationship Description Onset Age of this Age Resolved Age Notes LastModified by Organization Details LastModified Time Father No current problems or disability Not available 10/28 12:41:59 Mother No current problems or disability [email or web address] Not available 10/28 12:41:59 Medical History No medical history recorded. Gynecological HistoryNo gynecological history recorded. Obstetrics History GPAL:G 0 P 0 0 0 0 Past Encounters Encounter ID Performer Location Encounter Start Date Encounter Closed Date Diagnosis/Indication Diagnosis SNOMED-CT Code Diagnosis ICD10 Code Diagnosis Note [id number] [address] [address] [facility] [place] [address] 07/06/2015 12:45:23 07/06/2015 13:45:33 [id number] [facility] [place] [address] 09/01/2016 19:40:14 09/01/2016 20:07:17 [id number] [facility] [address] [place] [address] 10/28/2022 11:21:02 10/28/2022 13:15:38 Urgent desire to urinate 57636334 R39.15 Health Concerns Section Related Observation LastModified by Organization Detai ls LastModified Time None Recorded Concern Status LastModified by Organization Details LastModified Time None Recorded Advance Directives Directive None Recorded Payers Encounter Date Sequence Insurance Name Policy Number Policy Champion Covered Member ID Champion Member ID Guarantor Name 07/06/2015 1 [facility] [id number] Orly Lagos Venne [id number] Orly Venne 09/01/2016 1 [facility] ([facility] [id number] Orly B Venne [id number] Orly Venne 10/28/2022 1 [facility] ([facility]) [id number] Orly Lagos Venne [id number] Orly Herrera Notes Date Note Type Note Provider Name and Address Organization Details Recorded Time 10/28/2022 text/html Orly is a 62 yo F here for evaluation of urinary urgency and discomfort since yesterday. Discomfort described as pressure in the bladder, not painful urination. Called PCP this morning because sx were worsening and was told to come in to to check for UTI. Has had UTIs in the past and symptoms feel similar. No concerning sx for ascending infection including fevers, abd pain, flank pain. No vaginal sx. Had UTI in 2019 and was treated with ampicillin 500 mg TID x 7 days successfully. Notes I have a lot of issues with antibiotics and I would really like to take this one since I know it worked for me before if possible . Called pharmacy - not have ampicillin in stock. Pt has not tried macrobid before but would like to try that instead. NYDIA MONTE-NAA Wood, CAM [address] [place], [address], [place] - [facility] 10/28/2022 13:16:32 OBGyn Episode No OBEpisode recorded.
--- OUTSIDE RECORDS SUMMARY | 2025-01-19 07:55 | XMS_ITS | Clinical Summary ---
Author Organization [employer] Address [address] [place] [address] Care Team Providers Care Sheet Finisher Name Role Phone Unavailable Primary Care Provider Unavailabl e Social History Tobacco Use Types Packs/Day Years Used Date Smoking Tobacco: Never Assessed Comments Unknown Sex and Gender Information Value Date Recorded Sex Assigned at Not on file Legal Sex Female 7:13 AM EDT Gender Identity Not on file Sexual Orientation Not on file Plan of Treatment Health Maintenance Due Date Last Done Comments Breast Cancer Screening 1960 DTaP,Tdap,and Td Vaccines (1 - Tdap) 1978 Cervical Cancer Screening: P ap Smear 1980 Pneumococcal Vaccine: 50+ Ye ars (1 of 1 - PCV) 2009 Zoster Vaccines (1 of 2) 2009 COVID-19 Vaccine (2023-2 5 season) 2024 Influenza Vaccine (#1) 2024 Colorectal Cancer Screening: Colonoscopy 08/31/2024 Depression Screening 08/31/2024 Falls Risk Assessment 08/31/2024 Hepatitis C Screening 08/31/2024 Osteoporosis Screening (Bone Density Screening) 08/31/2024 Social Influencers of Health Screening 08/31/2024 RSV Immunization Patients 60 + Years Old (1 - 1-dose 75+ series) 2034 HIB Vaccines Aged Out No longer eligi ble based on patient's age to complete this topic HPV Vaccines Aged Out No longer eligi ble based on patient's age to complete this topic Hepatitis A Vaccines Aged Out No long er eligible based on patient's age to complete this topic Hepatitis B Vaccines Aged Out No long er eligible based on patient's age to complete this topic IPV Vaccines Aged Out No longer eligi ble based on patient's age to complete this topic MMR Vaccines Aged Out No longer eligi ble based on patient's age to complete this topic Meningococcal ACWY Vaccine Aged Out N o longer eligible based on patient's age to complete this topic Meningococcal B Vacine Aged Out No lo nger eligible based on patient's age to complete this topic Pneumococcal Vaccine: Pediat rics (0 to 5 Years) and At-Risk Patients (6 to 64 Years) Aged Out No longer eligible b ased on patient's age to complete this topic RSV Immunization Patients Un william 20 months Aged Out No longer eligible b ased on patient's age to complete this topic Varicella Vaccines Aged Out No longer eligible based on patient's age to complete this topic
== END 2025-01-19 07:52 | disposition home or self-care (01) ==
LOC: HO.US 07:51
PROVIDERS: PCP Family Medicine; Visit Provider Urology
DX: N20.0 Calculus of kidney (principal)
CPT/HCPCS: 76775

== ENCOUNTER → 2025-01-19 07:52 | Outpatient (BNV) | payer OTHER, SELFPAY | PROVIDERS: PCP Family Medicine; Visit Provider Radiology Diagnostic Radiology | DX: N20.0 Calculus of kidney (principal) | CPT/HCPCS: 76775 ==

== ENCOUNTER 2025-03-02 15:53 | Outpatient (AMB) | payer OTHER, SELFPAY ==
--- NOTE | 2025-03-02 15:54 | MHC.OFFVIS ---
Intake Visit Reasons: 6 month follow up/ US Intake Note: Patient is present for a 6 month follow up/US Urology Medication:TAMSULOSIN Antibiotic Allergy:NONE Blood Thinner:NONE Cutting And Boning Supervisor Required: No Allergies lansoprazole Allergy (Severe, Verified 04/02/25 08:31) Back Pain cefprozil [From Cefzil] Adverse Reaction (Mild, Verified 04/02/25 08:31) unknown cephalexin Adverse Reaction (Mild, Verified 04/02/25 08:31) stomach upset azithromycin Adverse Reaction (Unknown, Verified 04/02/25 08:31) stomach upset lisinopril Adverse Reaction (Unknown, Verified 04/02/25 08:31) cough Medication List - Last Reconciled 03/02/25 by Latanya English MD acetaminophen 500 mg PO ONCE PRN amlodipine 2.5 mg PO DAILY carvedilol 12.5 mg PO BID famotidine (Pepcid) 20 mg PO DAILY 90 days furosemide 20 mg PO DAILY Lactobac. rhamnosus GG-inulin 10 billion cell -200 mg ([facility] ReTargeter) caps PO ofatumumab (Kesimpta Pen) 20 mg subcut QWEEK omeprazole 10 mg PO DAILY polyethylene glycol 3350 (Miralax) 17 grams PO DAILY 90 days rifaximin 550 mg PO BID 14 days HPI Comments Details: 03/02/25--Orly is a 63-year-old female she is here for evaluation due to nephrolithiasis. h/o multiple sclerosis. She state she has had had GI issues over the last several months with CeBo, and has lost weight down to about 102 pounds. She denies renal colic, hematuria or flank pain. Reviewed renal US stone buden stable. She denies flank pain. Cont to monitor fu in [address] stone protocol. Results: US Renal-01/19/25--3 mm nonobstructive right renal stone and two nonobstructive left renal stones measuring up to 10 mm. 07/25/24--Orly is a 63-year-old female she is here for evaluation due to nephrolithiasis. h/o multiple sclerosis. The patient was seen in the [place] [facility] room in May 05, 2024, at that time she had left flank pain. The patient states that she thinks she passed the stone in the emergency room she is been asymptomatic since. CTAP-05/05/24-2 mm calculus at the left ureterovesical junction produces mild to moderate left hydroureteronephrosis. Additonal small bilateral renal calculi. 2 right renal calculi measuring 2 mm/upper pole, 2 mm/ lower pole, Left kidney 3 mm and 1 mm lower pole. I have discussed diet modification to decrease risk of forming more kidney stones. I have discussed low oxalate diet and specific foods to avoid including certain green leafy vegetables, chocalate, nuts, tea, beets, rubarb; low sodium, decreased use of animal protein and the importance of hydration. The patient has CAD and has retrictions on fluid intake, Discussed further evaluation with 24 hr urine however the patient states she will not be able to complete the test. She states that she has intermittent constipation and loose stools. The patient is followed by GI. The patient Plan to monitor kidneys. [facility] Medical History (Updated 03/02/25 @ 17:50 by Latanya English MD) Multiple sclerosis Gastroesophageal reflux disease without esophagitis Hypercholesterolemia LBBB (left bundle branch block) Cardiomyopathy Hypertension Anemia Small intestinal bacterial overgrowth Surgical History H/O cardiac catheterization History of endoscopy (12/30/19) Hx of endoscopy History of colonoscopy Family History Father History of heart attack Mother No problems noted. Social History Alcohol intake: never Review of Systems Const All systems reviewed & are unremarkable except as noted in HPI and below Reports no additional complaints Eyes Reports no additional complaints ENT Reports no additional complaints Card Reports no additional complaints Resp Reports no additional complaints GI Reports no additional complaints Reports as per HPI Musc Reports no additional complaints Skin/Breast Reports system reviewed and no additional complaints, except as documented Neuro Reports no additional complaints Psych Reports no additional complaints Endo Reports no additional complaints Sergei/Lymph Reports no additional complaints Aller/Immun Reports no additional complaints Telehealth Telehealth Telehealth [facility] Location of provider rendering services: practice address Location of patient: address on file Patient Identification confirmed using: Name, : Yes Telehealth method: video Patient verbally consented to treatment: Yes Patient verbally consented to billing insurance company: Yes Patient informed of any privacy concerns related to visit: Yes Results Reviewed Results Reviewed: Date of Service: 01/19/25 CLINICAL HISTORY: N20.0 - Calculus of kidney US Renal Comparison: None Findings: Right kidney 8.8 cm length. Left kidney 9.4 cm length. Normal bilateral renal cortical echogenicity without evidence of hydronephrosis (mild left-sided pyelectasia). Simple 9 mm right renal cyst. 3 mm nonobstructive right renal stone and 2 nonobstructive left renal stones measuring up to 10 mm. IMPRESSION: No hydronephrosis. A few bilateral nonobstructive renal stones Date of Service: 05/05/24 CLINICAL HISTORY: N20.0 - Calculus of kidney US Renal Comparison: None Findings: Right kidney 8.8 cm length. Left kidney 9.4 cm length. Normal bilateral renal cortical echogenicity without evidence of hydronephrosis (mild left-sided pyelectasia). Simple 9 mm right renal cyst. 3 mm nonobstructive right renal stone and 2 nonobstructive left renal stones measuring up to 10 mm. IMPRESSION: No hydronephrosis. A few bilateral nonobstructive renal stones CT ABDOMEN AND PELVIS WITHOUT CONTRAST CLINICAL INFORMATION: L flank pain, dysuria COMPARISON: None available. TECHNIQUE: Multidetector volumetric imaging was performed from the superior aspect of the liver through the pubic symphysis. Sagittal and coronal reformatted images were obtained on the technologist's workstation. This CT examination was performed using dose optimization techniques as appropriate, variously including the following: *Automated exposure control *Adjustment of mA and/or kV according to patient size (this includes techniques or standardized protocols for targeted exams where dose is matched to indication/reason for exam; i.e. extremities or head) *Use of iterative reconstruction technique DLP: 325 mGy-cm FINDINGS: LUNG BASES: The visualized lung bases are unremarkable. LIVER, GALLBLADDER, AND BILIARY TREE: The liver is normal in size, shape, and attenuation. No focal hepatic lesion or biliary ductal dilatation is present. The gallbladder is unremarkable with no evidence of radiopaque gallstones, gallbladder wall thickening, or obvious pericholecystic inflammatory changes. PANCREAS: Unremarkable. SPLEEN: Unremarkable. ADRENAL GLANDS: Unremarkable. KIDNEYS AND URETERS: The kidneys are normal in size, shape, and attenuation. Again seen are 2 right renal calculi measuring 2 mm in diameter, situated in the upper and lower pole calyces. At the left kidney, there is a 3 mm calculus within a lower pole calyx and a 1 mm calculus within the adjacent lower pole calyx. There is mild to moderate left hydroureteronephrosis produced by a 2 mm calculus at the left ureterovesical junction. No right-sided hydronephrosis or hydroureter. BLADDER: Unremarkable. GASTROINTESTINAL TRACT: Stomach, small bowel, and colon are normal in caliber. No bowel wall thickening or surrounding inflammatory changes. Appendix is normal. No intraperitoneal free fluid or free air. ABDOMINAL WALL: There is a small fat-containing umbilical hernia. No bowel involvement. LYMPH NODES: Normal. VASCULAR: Atherosclerotic calcifications are present in the abdominal aorta and iliac arteries. No aneurysmal dilatation. PELVIC VISCERA: The uterus and adnexa are unremarkable. OSSEOUS STRUCTURES: There is grade 2 anterolisthesis of L5 on S1 with marked bilateral facet arthropathy. Moderate to severe degenerative disc disease is present at L5-S1. More mild multilevel degenerative disc disease at other levels. 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 IMPRESSION: 1. A 2 mm calculus at the left ureterovesical junction produces mild to moderate left hydroureteronephrosis. 2. Additional small bilateral renal calculi. 3. Grade 2 anterolisthesis of L5 on S1 with marked bilateral facet arthropathy. To and I specimen so Assessment & Plan Assessment & Plan (1) Kidney stone: Code(s): N20.0 - Calculus of kidney Category: Medical (2) Multiple sclerosis: Code(s): G35 - Multiple sclerosis Category: Medical Plan Cont to monitor fu in [address] stone protocol. Patient Instructions: The patient had an opportunity to ask questions regarding treatment plan. The patient expressed understanding and agreement with the above treatment plan. The patient is aware they should contact our office by phone for worsening of their current condition or the appearance of new symptoms. Compliance is encouraged with any medications and followup testing that is ordered. It is a privilege to be allowed the opportunity to participate in the urologic care of your patient. If you have any questions or concerns regarding treatment for the above conditions please do not hesitate to contact me. The office telephone contact is [phone]. This note is constructed in part using voice recognition software. While every effort has been made to ensure accuracy social media specialist errors may have been included. Yours sincerely, Latanya English MD Coding Level of Care Code Tele Est Pt Level 3 (51254) Diagnoses Kidney stone N20.0 Multiple sclerosis G35
--- OUTSIDE RECORDS SUMMARY | 2025-03-02 18:37 | XMS_ITS ---
Author Organization [facility] Address [address] [place] [address] Care Team Providers Care Air Chief Marshal Name Role Phone Genoveva Amber Primary Care Provider Norma Lund [phone] REASON FOR VISIT BUY [employer] Encounters Encounter Location Date Provider Diagnosis [facility] [address] [place] [address] 04/23/2024 Norma Beauchamp Plan Of Treatment No Information Progress Notes * Orly HERRERA BDOB:1960 (63 yo F)Acc No.[id number]:04/23/2024 Patient:?Orly Herrera :1960???Age:63 Y???Sex:Female Address:[address] [place] [address] [place] [address] * true * Date:? Generated for Printi sybil/Leila/eTransmitting on:?03/02/2025 06:37 PM EDT
--- OUTSIDE RECORDS SUMMARY | 2025-03-02 18:38 | XMS_ITS ---
Author Organization [facility] Address [address] [place] [address] Care Team Providers Care Dry Boss Name Role Phone Amber Tomas Primary Care Provider Norma Lund Unavailable [phone] Allergies Allergen (clinical drug ingredient) Drug/Non Drug Allergy documented on EMR Reaction Allergy Type Onset Date Status Lamasil (uncoded) stomach upset Allergy Active sulfamethoxazole / trimethoprim Bactrim stomach upset Drug Allergy Active Ceftin stomach issues Drug Allergy Ac tive [...] 05/20/2024 Encounters Encounter Location Date Provider [facility] [address] [place] [address] 05/20/2024 Norma Beauchamp Plan Of Treatment No Information Progress Notes * Orly HERRERA BDOB:1960 (64 yo F)Acc No.[id number]:05/20/2024 Progress Notes Patient:?Orly HERRERA B Provider:?Norma Beauchamp DPM :1960???Age:63 Y???Sex:Female D ate:05/20/2024 Address:[address] [place] [address] Pcp:Amber Tomas Subjective: * Chief Complaints: * [...] Beauchamp DPM Date:? Generated for Gonzalo devine/Leila/Kem on:?03/02/2025 06:38 PM EDT
--- OUTSIDE RECORDS SUMMARY | 2025-03-02 18:38 | XMS_ITS ---
Author Organization [facility] Address [address] [place] [address] Care Team Providers Care Lead Recreation Assistant Name Role Phone Amber Tomas Primary Care Provider Norma Lund Unavailable [phone] Allergies Allergen (clinical drug ingredient) Drug/Non Drug [...] Osteoarthritis of midtarsal joint of left foot (1697062426164720 ) Osteoarthritis of midtarsal joint of left foot (M19.072) Active confirmed Problem Osteoarthritis of midtarsal joint of right foot (8553081103726450 ) Osteoarthritis of midtarsal joint of right foot (M19.071) Active confirmed Problem 99912820 Multiple sclerosis (G35) Active confirmed Problem Multiple sclerosis (30524700) Multiple sclerosis exacerbation (G35) Active confirmed Vital Signs Height 5ft1in in 05/16/2024 Weight 104 lbs 05/16/2024 BMI 19.65 kg/m2 05/16/2024 Blood pressure systolic 130 mm Hg 05/16/20 24 Blood pressure diastolic 90 mm Hg 024 Encounters Encounter Location Date Provider Diagnosis [facility] [address] [address] 05/16/2024 Norma Beauchamp Pain in left foot [...] * Orly HERRERA BDOB:1960 (63 yo F)Acc No.[id number]:05/16/2024 Progress Notes Patient:?Orly Herrera B Provider:?Norma Beauchamp DPM :1960???Age:63 Y???Sex:Female D ate:05/16/2024 Address:[address] [place] [address] Pcp:Amber Tomas Subjective: * Chief Complaints: * [...] ca therization 04/2021 * Hospitalization/Major Diagno stic [place] [place] * Family History:?Mother: dece [...] ray : Foot, right 3V * Procedure Codes:?39333 X-RAY EXAM OF LEFT FOOT 3V, Modifiers: 26 , [id number] X-RAY EXAM OF RIGHT FOOT 3V, Modifiers: [...] exercise to failure, expense, systemic complications, infection, [id number], prolongued postop course. Patient questions re: the various treatment options available, their successes and potential failures, and chcf effects were discussed and the answers were verbally confirmed understood.?P.R.I.C.E.:?The patient was counseled on the use of P.R.I.C.E. and NSAIDS (if well tolerated) to aid in the recovery from their painful condition.?Physical Therapy:?Discussed the potential short and equipment operator intermodal yard benefits of physical therapy including pain relief, [...] * Provider:?Norma Beauchamp DPM Date:?10/2024 Generated for Printi ng/Leila/eTransmitting on:?03/02/2025 06:38 PM EDT History and Physical Notes * HPI [...]
--- OUTSIDE RECORDS SUMMARY | 2025-03-02 18:38 | XMS_ITS | Patient Health Record ---
Author Organization [facility] Address [address] [facility] [place] [address] Care Team Providers Care Grinder Hand Name Role Phone Amber Tomas Primary Care Provider Norma Lund Unavailable [phone] Allergies Allergen (clinical drug ingredient) Drug/Non Drug [...] Problem Status W/U Status Risk Notes Problem [id number] Hallux valgus (acquired), left foot (M20.12) Active confirmed Problem 692222281434310 Hallux valgus (acquired), right foot (M20.11) Active confirmed Problem 44398445 Multiple sclerosis (G35) Active confirmed Problem 103532813 Raynaud's diseas e without gangrene (I73.00) Active confirmed Problem Multiple sclerosis (69269176) Multiple sclerosis exacerbation (G35) Active confirmed Problem Osteoarthritis of midtarsal joint of left foot (2107190838252995) Osteoarthritis of midtarsal joint of left foot (M19.072) Active confirmed Problem Osteoarthritis of midtarsal joint of right foot (3297378121456129) Osteoarthritis of midtarsal joint of right foot (M19.071) Active confirmed Vital Signs Blood pressure diastolic 90 mm Hg 05/16/2024 Height 5ft1in in 05/16/2024 Blood pressure systolic 130 mm Hg 05/16/2024 Weight 104 lbs 05/16/2024 BMI 19.65 kg/m2 05/16/2024 Encounters Encounter Location Date Provider Diagnosis [facility] [place] [address] [place] [address] 05/16/2024 Nomra Beauchamp Pain in left foot M79.672 ; [...] of midtarsal joint of right foot M19.071 [facility] [address] [address] 04/23/2024 Norma Beauchamp Assessments Encounter Date Diagnosis [...] Insured Coverage Start Date Coverage End Date [facility] [id number] [address] [address] [place] [address] [id number] Orly Herrera Self - patient is the insured Medical (General) History Medical History History ICD Code Multiple sclerosis Neuropathy Reflux ( GERD) Raynauds syndrome Chicken pox Anemia Back,Hip,and Knee pain Heart disease High blood pressure Poor circulation SiBo Cardiac catherization Surgical History Surgery Date(Month/Year) Cardiac catherization 04/2021 [place] Reason Date([place] [facility] [place]
--- OUTSIDE RECORDS SUMMARY | 2025-03-02 18:38 | XMS_ITS | Data Portability ---
Author Organization [facility] Address [address] [place] [address] Care Team Providers Care Manufacturing Support Engineer Name Role Phone ALISHA FATIMA Primary Care Provider Assessment No assessment recorded. Plan of Treatment Reminders Order Date Submit Date Provider Last Modified By Organization Details Last Modified Time Details Appointments None recorded. Lab urinalysis , dipstick 2021 [email or web address] 20999[facility], [address] [place] [address], [id number], 12:59:57 culture, urine [address] [facility], [address] [place] [address], [place], [address], 06:07:15 Referral None recorded. Procedures None recorded. Surgeries None recorded. Imaging None recorded. Medication Orders Macrobid 100 mg capsule 2021 [facility] #[id number], [address] , [place], [address], 13:14:53 Patient TargetsNo targets recorded. Patient Instructions Encounter Date Encounter Id Patient Instructions Last Modified By Organization Details Last Modified Time 10/28/2022 [id number] Urinary Tract Infection (UTI) in Women: Care Instructions [email or web address] Not available 10/28/2022 12:58:38 Reason for Referral None Reported. Results Created Date Observation Date Name Description Value Unit Range Abnormal Flag Note LastModifiedBy Organization Detail LastModifiedTime 10/28/20 22 10/31/2022 URINE CULTU RE, SUZANNE NE urine culture, routine FINAL REPORT abnormal Not Available [facility] ([facility]) [address] [facility], [place], [address], 11/01/2022 06:07:15 10/28/20 22 10/31/2022 URINE CULTU [...] p A). (CLSI ) Not Available [facility] ([facility]) [address] [facility], [place], [address], 11/01/2022 06:07:15 10/28/20 22 10/28/2022 urina lysis , dipst ick Unknown Analyte Light Yellow Not Available [facility] [address] [facility] [place], [address], 10/28/2022 12:32:36 10/28/20 22 10/28/2022 urina lysis , dipst ick Unknown Analyte Slight ly Cloudy Not Available [address] [place], [address], 10/28/2022 12:32:36 10/28/20 22 10/28/2022 urina lysis , dipst ick Unknown Analyte Negati ve Not Available [facility] [address] [facility] [place], [address], 10/28/2022 12:32:36 10/28/20 22 10/28/2022 urina lysis , dipst ick Unknown Analyte Negati ve Not Available susana christopher [address], [place], [address], 10/28/2022 12:32:36 10/28/20 22 10/28/2022 urina lysis , dipst ick Unknown Analyte Negati ve Not Available susana christopher [address], [place], [address], 10/28/2022 12:32:36 10/28/20 22 10/28/2022 urina lysis , dipst ick Unknown Analyte 1.015 Not Available [facility] [address] [place], [address], 10/28/2022 12:32:36 10/28/20 22 10/28/2022 urina lysis , dipst ick Unknown Analyte Large Not Available _ [facility] [place], [address], 10/28/2022 12:32:36 10/28/20 22 10/28/2022 urina lysis , dipst ick Unknown Analyte 6.5 Not Available [place] [address] [place], [address], 10/28/2022 12:32:36 10/28/20 22 10/28/2022 urina lysis , dipst ick Unknown Analyte Negati ve Not Available susana [address] [place], [address], 10/28/2022 12:32:36 10/28/20 22 10/28/2022 urina lysis , dipst ick Unknown Analyte 0.2 E.U./d L Not Available susana christopher [address] [place], [address], 10/28/2022 12:32:36 10/28/20 22 10/28/2022 urina lysis , dipst ick Unknown Analyte Negati ve Not Available susana christopher [address] [place], [address], 10/28/2022 12:32:36 10/28/20 22 10/28/2022 urina lysis , dipst ick Unknown Analyte Small Not Available fredrick [address] [place], [address], 10/28/2022 12:32:36 10/28/20 22 10/28/2022 urina lysis , dipst ick Unknown Analyte Normal = light yellow Not Available susana christopher [address] [place], [address], 10/28/2022 12:32:36 10/28/20 22 10/28/2022 urina lysis , dipst ick Unknown Analyte Normal = clear Not Available susana christopher [address] [place], [address], 10/28/2022 12:32:36 10/28/20 22 10/28/2022 urina lysis , dipst ick Unknown Analyte Normal = negati ve Not Available susana christopher [address] [place], [address], 10/28/2022 12:32:36 10/28/20 22 10/28/2022 urina lysis , dipst ick Unknown Analyte Normal = Negati ve Not Available susana christopher [address] [place], [address], 10/28/2022 12:32:36 10/28/20 22 10/28/2022 urina lysis , dipst ick Unknown Analyte Normal = Negati ve Not Available susana christopher [address] [place], [address], 10/28/2022 12:32:36 10/28/20 22 10/28/2022 urina lysis , dipst ick Unknown Analyte Normal = 1.010, 1.015, 1.020 Not Available susana christopher [address] [place], [address], 10/28/2022 12:32:36 10/28/20 22 10/28/2022 urina lysis , dipst ick Unknown Analyte Normal = Negati ve Not Available susana [address] [place], [address], 10/28/2022 12:32:36 10/28/20 22 10/28/2022 urina lysis , dipst ick Unknown Analyte Normal = 6.5, 7.0, 7.5, 8.0 Not Available susana christopher [address] [place], [address], 10/28/2022 12:32:36 10/28/20 22 10/28/2022 urina lysis , dipst ick Unknown Analyte Normal = Negati ve Not Available susana christopher [address] [place], [address], 10/28/2022 12:32:36 10/28/20 22 10/28/2022 urina lysis , dipst ick Unknown Analyte Normal = 0.2, 1.0 Not Available susana christopher [address] [place], [address], 10/28/2022 12:32:36 10/28/20 22 10/28/2022 urina lysis , dipst ick Unknown Analyte Normal = Negati ve Not Available susana christopher [address] [place], [address], 10/28/2022 12:32:36 10/28/20 22 10/28/2022 urina lysis , dipst ick Unknown Analyte Normal = Negati ve Not Available [address] [place] [address], [address], 10/28/2022 12:32:36 Result Notes None recorded. Problems Name Problem SNOMED Code Status Onset Date Resolution Date Notes Provider Name and Address Organization Details Recorded Time Raynaud's disease 083925776 Active 022 ANNALEE LUPICA null, [place] - [facility] 12:40:55 Heart failure 30720318 Active LBBB ANNALEE LUPICA null, PA - [facility] 12:41:14 Multiple sclerosis 92810134 Active ANNALEE LUPICA null, PA - [facility] 12:41:24 Problem Notes None recorded. Medical Equipment None Reported. Allergies Allergen ID Allergen Name Allergen Category Reaction Reaction Severity Criticality Documentation Date Start Date Code Code System Note Provider Name and Address Organization Details Recorded Time 85581 cephalexi n medicatio n Not available Not available Not available 10/28/2022 2231 RxNorm ANNALEE LUPICA null, PA - [facility] 2 12:35:29 06875 Ceftin medicatio n Not available Not available Not available 10/28/2022 49153 6 RxNorm ANNALEE LUPICA null, PA - [facility] 2 12:35:37 89912 Cefzil medicatio n Not available Not available Not available 10/28/2022 74597 1 RxNorm ANNALEE LUPICA null, PA - [facility] 2 12:35:45 99319 Lamisil medicatio n Not available Not available Not available 10/28/2022 01370 6 RxNorm ANNALEE LUPICA null, PA - [facility] 2 12:35:53 68479 Prevacid medicatio n Not available Not available Not available 10/28/2022 29289 RxNorm ANNALEE LUPICA null, PA - [facility] 2 12:36:01 49502 lisinopri l medicatio n Not available Not available Not available 10/28/2022 22657 RxNorm ANNALEE ALONSO null, PA - [facility] 2 12:36:11 70436 metoprolo l Not available Not available Not available Not available 10/28/2022 6918 RxNorm ANNALEE AGUIRREICA null, PA - [facility] 2 12:36:20 01776 losartan medicatio n Not available Not available Not available 10/28/2022 25394 RxNorm ANNALEE ALONSO null, PA - [facility] 2 12:36:29 00946 Entresto medicatio n Not available Not available Not available 10/28/2022 09962 41 RxNorm ANNALEE ALONSO null, PA - [...] Last Updated DateTime 154.94 cm 20.4 kg/m2 07925.9 8 g 97.3 [degF] 98 % 98 % 68 /min 16 /min 145 mm[Hg] 83 mm[Hg] ANNALEE ALONSO PA - [facility] 12:44:41 Social History Question Answer Notes LastModified by Organizat ion Details LastModified Time Tobacco Smoking Status Former Smoker ANNALEE booth, [place] - [facility] 10/28/2022 12:42:20 What Is Your Level Of Alcohol Consumption? None [email or web address] Information not available 10/28/2022 Do You Use Any Illicit Or Recreational Drugs? No [email or web address] Information not available 10/28/2022 Have You Recently Traveled Abroad? No Information not available 10/28/2022 Do You Or Have You Ever Used Any Other Forms Of Tobacco Or Nicotine? No [email or web address] Information not available 10/28/2022 Sex: Unknown Functional Status None recorded. Mental Status None recorded. Family History Relationship Description Onset Age of this Age Resolved Age Notes LastModified by Organization Details LastModified Time Father No current problems or disability [email or web address] Not available 10/28 12:41:59 Mother No current problems or disability [email or web address] Not available 10/28 12:41:59 Medical History No medical history recorded. Gynecological HistoryNo gynecological history recorded. Obstetrics History GPAL:G 0 P 0 0 0 0 Past Encounters Encounter ID Performer Location Encounter Start Date Encounter Closed Date Diagnosis/Indication Diagnosis SNOMED-CT Code Diagnosis ICD10 Code Diagnosis Note [id number] [address] [address] [facility] [place] [address] 07/06/2015 12:45:23 07/06/2015 13:45:33 [id number] [address] [facility] [place] [address] 09/01/2016 19:40:14 09/01/2016 20:07:17 [id number] [facility] [address] [place] [address] 10/28/2022 11:21:02 10/28/2022 13:15:38 Urgent desire to urinate 91739667 R39.15 Health Concerns Section Related Observation LastModified by Organization Detai ls LastModified Time None Recorded Concern Status LastModified by Organization Details LastModified Time None Recorded Advance Directives Directive None Recorded Payers Encounter Date Sequence Insurance Name Policy Number Policy Champion Covered Member ID Champion Member ID Guarantor Name 07/06/2015 1 [facility] [id number] Orly Lagos Venne [id number] Oryl Venne 09/01/2016 1 [facility] ([facility]) [id number] Orly B Venne [id number] Orly Venne 10/28/2022 1 [facility] ([facility]) [id number] Orly [place] Venne [id number] Orly Herrera Notes Date Note Type Note [...] Wood, CAM [address] [place], [address], [place] - [facility] 10/28/2022 13:16:32 OBGyn Episode No OBEpisode recorded.
--- OUTSIDE RECORDS SUMMARY | 2025-03-02 18:38 | XMS_ITS | Clinical Summary ---
Author Organization [facility] Address [address] [place] [address] Care Team Providers Care Manager Data Name Role Phone Unavailable Primary Care Provider [...] 2009 COVID-19 Vaccine (2023-2 5 season) 2024 Colorectal Cancer Screening: Colonoscopy 08/31/2024 Depression Screening 08/31/2024 Falls Risk Assessment 08/31/2024 Hepatitis C Screening 08/31/2024 Osteoporosis Screening (Bone Density Screening) 08/31/2024 Social Influencers of Health Screening 08/31/2024 Influenza Vaccine (Season Ended) 2025 RSV Immunization Adult Patie nts (1 - 1-dose 75+ series) 2034 HIB [...] age to complete this topic Meningococcal B Vaccine Aged Out No l onger eligible based on patient's age to complete [...]
== END 2025-03-02 16:50 | disposition home or self-care (01) ==
LOC: HO.HUSH 15:53
PROVIDERS: Visit Provider Urology
DX: N20.0 Calculus of kidney (principal); G35 Multiple sclerosis
CPT/HCPCS: 99213

== ENCOUNTER 2025-04-02 08:21 | Outpatient (AMB) | payer OTHER, SELFPAY ==
[2025-04-02 08:28] VITALS: BP 134/50; PULSE 56; O2SAT 97; BMI 19.3
--- NOTE | 2025-04-02 08:28 | MHC.OFFVIS ---
Vital Signs 04/02/25 08:28 Height 5 ft 1 in Weight 102 lb BMI 19.3 BP 134/50 L Blood Pressure Location Lt brachial Position Sitting Pulse 56 Pulse Oximetry (%) 97 Oxygen Delivery Method Room Air Intake Visit Reasons: 4 mo abd bloating Intake Note: Patient 4 month follow up for abdominal bloating. Patient cc: gassy, soft stool, beteen diarrhea and constipation, acid reflux, abdominal pain with bloating. 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 Required: No Accompanied by: Self / Same As Patient Allergies lansoprazole Allergy (Severe, Verified 04/02/25 08:31) Back Pain cefprozil [From Cefzil] Adverse Reaction (Mild, Verified 04/02/25 08:31) unknown cephalexin Adverse Reaction (Mild, Verified 04/02/25 08:31) stomach upset azithromycin Adverse Reaction (Unknown, Verified 04/02/25 08:31) stomach upset lisinopril Adverse Reaction (Unknown, Verified 04/02/25 08:31) cough HPI HPI 4 mo abd bloating: Details: VISIT FOR THIS 64-YEAR-OLD FEMALE WITH HYPERTENSION, HYPERCHOLESTEROLEMIA, CARDIOMYOPATHY WITH LEFT BUNDLE-BRANCH BLOCK, MULTIPLE SCLEROSIS FOR FOLLOW-UP OF GERD AND DYSPHAGIA. Patient's Primary Care Physician Is Anam Tomas NP at [facility] and she sees Dr. Dong for her MS. Pt is followed by Cardiology for heart failure related to LBBB. Echocardiogram earlier this year showed EF of 35 to 40% Pt has been unable to tolerate several medications for heart failure. CHRONIC ILLNESSES:?GERD, MULTIPLE SCLEROSIS, HYPOCHOLESTEROLEMIA, Nicotine dependence, unspecified, uncomplicated, Caffeine dependence ???TODAY'S VISIT Patient cc: gassy, soft stool, beteen diarrhea and constipation, acid reflux, Patient cc: between diarrhea and constipation,abdominal pain/bloating, acid reflex is much better with medication. Has been very sick since January. Feels better since she started Rifaximin 1 week ago - took 4 days for it to work. She was having diarrhea upto 16 times a day. She would like to try a shorter course of Rifaximin. Costs approx $2000 per course of antibiotics. Diet is restricted and has lost weight. PAST VISITS: Getting over the flu - stuffy nose and head since last Sunday with chills and body aches Taking Rifaximin and has 2 more days. She was taking regular milk and switched to Lactaid milk in tea. Had been eating apple pie and taken it away Cant handle anything with sugars in it Antibiotics help her symptoms and do not resolve completely with antibiotics. Last episode triggered by eating xmas cookies and ham. Symptoms started after she was diagnosed with cardiomyopathy with HF in 2020 PAST VISITS: I think I still have SIBO - bloating, gas Took antibiotics and have diarrhea towards the end - resolved. Flare up makes her constipated. Notes partial improvement after antibiotics. Feels she is unable to get rid of all the stool. Cut out dairy and fructose from her diet. Unable to take the breath test for SIBO She was unable to take augmetin due to diarrhea She saw the comic book artist in May, - EF 42% on Echo. Not at a level where she needs a pacemaker. the antibiotic helped me a great deal Started to have a little bit of a stomach upset on 03/05/24 This was followed by gurgling, bloating, abd and back pain, BRAR and foul smelling gas Avoids ice cream, dairy products, high fructose corn syrup Some days she is able to have a BM daily and some days she can have frequent small BMs Had a back up in 2016 and symptoms started since then. Takes Miralax daily. Has been taking Culturelle and plans to take Align for the next few months She would like to do the breath test. PAST VISITS: Patient cc: acid reflex on and off, constipation on and off. Patient is taking antibiotic and is helping her. Feels her symptoms are begining to come back Has been the worst thing that has affected her. Notes upset stomach after eating certain foods - ice cream, jello with peaches and cheeses Denies diarrhea with milk products. Not eating ice-cream or jello with peaches any more Taking much less TUMS Planning to resume taking multivitamins Unable to eat till 4 pm. Tries to eat crackers, saltines and pop tarts. BMs a little bit bigger. Many times she has multiple small bowel movements. Taking Miralax once a day at night. Taking Omeprazole every other day alternating with pepcid. On 08/03/23 @ 18:24 Karla Alves Wrote To Karla Alves (2) Pt called: Complains of constipation and foul smelling flatulance, increased burping, nausea and right sided abdominal pain Has had a few bouts which resolve spontaneously. Lately either has constipation or loose stools I discussed option of trying senna and pt thinks she used it in the past and had some side effects. Pt advised to start taking probiotics ( align or Culturelle). She was advised to increase Miralax to twice a day If symptoms do not improve in 4-6 weeks, patient was advised to call the GI clinic to schedule a follow-up appointment. ?LABS IN [facility]:?01/18/19 NORMAL CBC WITH PLATELET COUNT OF 184, NORMAL CHEM PANEL AND LFTS ? VITAMIN B12 235 IN SEPTEMBER 2017 ?IMAGING STUDIES: 04/2014 Abd US was normal ? 04/2014 UGI showed: ? Small sliding hiatal hernia and gastroesophageal reflux. ?ENDOSCOPIC STUDIES: 12/30/19 EGD showed: ? ESOPHAGUS: Aperistaltic esophagus without stricture or ring. GE junction at 38 cms, small hiatla hernia 38 to 40 cms. ? No esophagitis. Irregular Z line - biopsied to check for Barretts. Biopsies showed reflux and negative for Alberts's. ? STOMACH: Mild diffuse gastric erythema. Biopsies were obtained from the antrum and body of the stomach. ? Decreased peristalsis noted in the stomach. Grade 2 flap valve on retroflexed examination of the cardia. ? Biopsies were negative for H Pylori. ? Plan: ? Continue present medications (Omeprazole at 10 mg PO every other day alternating with Pepcid every other day). Pt was unable to tolerate taking Omeprazole daily. Continues to have intermittent regurgitation. ? Schedule a Gastric Emptying Study to rule out Gastroparesis causing persistent GERD symptoms. ? Patient has an appointment on 01/19/20 in the GI Clinic with Karla Alves M.D ? Above findings were reviewed with the patient and handout on GERD was provided in the discharge area. ?01/2016 EGD AND COLONOSCOPY WERE PERFORMED BY DR. DIEGO: ? GENERAL IMPRESSION:Superficial gastritis. COMMENT:I raised a question of underlying altered motility in this patient. This may needfurther evaluation depending on persistence of symptoms when the patient is re-seen. PROCEDURE IN DETAIL:Digital rectal examination revealed no specific lesion. Video colonoscope wasintroduced without difficulty, it was navigated into the rectosigmoid, sigmoid, upinto the descending colon. At this juncture, there was moderate redundancy.Despite extrinsic pressure, there was still looping of the scope. The patient wasrepositioned on her back. Scope was readily advanced through proximal, descendingcolon, and transverse colon, ascending colon, down into the cecal cap. Appendicealorifice was seen, ileocecal valve was well seen. No mucosal abnormalities wereappreciated. The scope was slowly withdrawn. Good rotational views were had.Anorectal verge was clear. GENERAL IMPRESSION:There were a few minor diverticula noted. Otherwise, the examination was normal. PLAN:The patient will be re-seen in our office. Further evaluation as is appropriate. Repeat colon cancer screening in this individual would be approximately 7 years. ? ? PAST VISITS: Weekend of 07/28/23 she had several BMs with burping, bloating and gurgling, fatigue. Symptoms continued. Started taking Culturelle once a day which helped the gas and not the diarrhea. Unable to leave the house or stop culturelle Also has had some leakage - feels like colon is in a spasm Kept a log of BMs - days when she goes 4 times, or 6 times or upto 8 times - multiple small BMs without diarrhea. Saw the Neurologist who prescribed the Bentyl 20 mg and has not started taking it. Does not drink milk and no longer can drink coffee. Can have a slice of cheese a day Unable to eat anything till mid afternoon and has been eating less. Has dinner after 6 pm. She was eating ice cream all the time and has not been able to take it. Taking Omeprazole and feeling better. Can have uncontrollable gas. Switched to a new medication once a month (instead of every week) for MS Continues to have cardiac issues. Gained 2-3 lbs and has been using Lasix - every other day She was taking pepcid and having diarrhea Continues to have bloating and gas. Feels better in the afternoon. Thinks Avonex injection (takes on the weekend) is causing problems with her stomach and looking at other options with the Neurologist. Prescribed spironolactone 25 mg once a day by the comic book artist and notes nausea. Taking mostly pepcid for the stomach and trying to work in the Omeprazole - was taking it every 3rd day. Seemed to hurt and not help. She is able to take furosemide without any stomach issues. Seeing a Cardiology PA at [facility] and diagnosed with heart failure. June, noted worsening SOB and dose of carvedilol was doubled BNP was elevated (641) and advised to take furosemide. Lab tests were reviewed - showed anemia - advised to start taking iron every other day. Increase to daily if no problems with constipation. Take MVI and Vitamin B12 Planning to work on taking a healthier diet. Baseline wt is 108. Taking 1/2 tablet of Pepcid daily - once in a while feels acid coming up in her chest. Stopped Omperazole since it was causing bad smelling gas. Resolved after she stopped taking Omeprazole Denies problems with anesthesia in the past, loud snoring or sleep apnea (has intermittent mild snoring). ? Denies major pulmonary problems. ? Denies known FH of colon polyps or colon cancer or GI malignancy. ? Mom had breast cancer and cardiac amyloidosis. ? Dad had skin cancer. Taking Omeprazole 10 mg every other day alternating with Pepcid or TUMs with adquate control of GERD symptoms Taking Miralax for constipation. Notes GI and urinary tracts are more sluggish. Has a BM daily. Feels full and unable to eat a lot at once. Wt is stable. Noted chest pains after her booster shot in 08/2021 for COVID (Moderna) Pt is followed by Dr Velasquezs, Cattle Killer at [facility] for Htn and Cardiomyopathy and has a FU appt in Dec, 2021. Continues to have intermittent trouble with chest tightness and shortness of breath. Takes an effort to do her regular chores and going to the grocery store. 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 Seen by Cattle Killer for chest pain and had a stress test which was negative. Cardiology evaluation with Echo, stress test. 04/05/21 Cardiac Cath - no stenosisEF was 35% on EchoDiagnosed with non-alcoholic cardiomyopathy - cardiac MRI was negative for amyloidosis (Mom of cardiac amyloidosis). EF was 41% Heart problems related to LBBB - she may need a pacemaker in the future. Denies ETOH use Metoprolol - caused stomach pain & diarrhea Carvedilol - taking at present - makes her feel sluggish, retain water and urinary problems Enteresta - started 2 days ago - had chest tightness and discontinued Blood pressure has usually been 130 ?PAST VISIT: hanging in there New medical issue which is ongoing. Happened while shoveling snow in Oct, 2020 - asthmatic symptoms. Being treated with 2 inhalers and a nasal spray. Tested negative for COVID. Had pulmonary testing at [facility] last week Tried Prevacid and noted back pain. Taking a combination of Omeprazole on alternate days with Pepcid GES results were reviewed with the patient?- normal [facility] Medical History (Updated 03/02/25 @ 17:50 by Latanya English MD) Multiple sclerosis Gastroesophageal reflux disease without esophagitis Hypercholesterolemia LBBB (left bundle branch block) Cardiomyopathy Hypertension Anemia Small intestinal bacterial overgrowth Surgical History H/O cardiac catheterization History of endoscopy (12/30/19) Hx of endoscopy History of colonoscopy Family History Father History of heart attack Mother No problems noted. Social History Alcohol intake: never Review of Systems Const All systems reviewed & are unremarkable except as noted in HPI and below Physical Exam Vital Signs: Last Vital Signs Pulse 56 04/02/25 08:28 BP 134/50 L 04/02/25 08:28 Pulse Ox 97 04/02/25 08:28 Oxygen Delivery Method Room Air 04/02/25 08:28 BMI result Body Mass Index 19.3 Const General: healthy appearing, no acute distress and anxious Nutritional Appearance: underweight Orientation/consciousness: patient oriented x3 HEENT Head: Yes normal to inspection Ears: hearing grossly normal bilaterally Eyes Sclerae: sclerae normal Pupils: Equal, round and reactive pupils present Neck Neck: Yes normal visual inspection Chest Chest palpation & inspection: normal inspection of the chest Resp Effort & Inspection: normal respiratory effort Auscultation: clear to auscultation bilaterally Cardio Palpation: normal PMI Rate: regular rate Rhythm: regular rhythm Heart sounds: S1 normal heart sound present, S2 normal heart sound present and no murmurs GI Palpation (GI): Soft to palpation, nontender and No hepatosplenomegaly present Auscultation: normal bowel sounds Rectal Exam - Female: deferred Skin General skin exam: no rashes or lesions noted Neuro General: patient oriented x3, gait normal and moves all extremities Cranial nerves: Yes Equal, round and reactive pupils present Psych Appearance: grossly normal Mental Status: mental status grossly normal Assessment & Plan Assessment & Plan (1) Vitamin B12 deficiency: Code(s): E53.8 - Deficiency of other specified B group vitamins Category: Medical (2) Chronic constipation: Code(s): K59.09 - Other constipation Category: Medical (3) Colon cancer screening: Comment: Colonoscopy [place] [address] Diego showed few minor diverticula noted. Otherwise, the examination was normal. Repeat colonoscopy was advised in 7 years - due 2022 (consider a stool cologuard test due to low EF of 35 - 40%) Code(s): Z12.11 - Encounter for screening for malignant neoplasm of colon Category: Medical (4) Abdominal bloating: Code(s): R14.0 - Abdominal distension (gaseous) Category: Medical Plan 64 YF with GERD, multiple sclerosis, hypertension, hypercholesterolemia, cardiomyopathy with LBBB, Nicotine dependence, Caffeine dependence seen for evaluation dysphagia, regurgitation abdominal bloating and constipation. Her symptoms suggest esophageal involvement with MS. Patient was advised a trial of low-dose omeprazole 10 mg daily to see if it would control her symptoms without causing dizziness. She was advised to add Pepcid at night if she continued to have symptoms despite above. 12/30/19 EGD showed a small hiatal hernia, an aperistaltic esophagus without stricture or ring. Esophageal biopsies showed reflux and were negative for Alberts's. STOMACH: Mild diffuse gastric erythema. Biopsies were obtained from the antrum and body of the stomach. Decreased peristalsis noted in the stomach. Biopsies were negative for H Pylori. A gastric emptying study was normal ruling out gastroparesis. She did well with omeprazole for several months and then noted recurrent dizziness. Patient tried switching to lansoprazole 15 mg every other day and was unable to tolerate due to back pain. She is taking omeprazole 10 mg every other day alternating with Pepcid 20 mg on alternate days. She takes Miralax once a day for constipation. 04/2023 Labs showed worsening anemia, normal Vitamin B12, low Vitamin D and mild Zinc deficiency. Pt will resume taking iron gummies (which she tolerated in the past) and OTC Vitamin D. She was advised to take a MVI 3 times a week for Zinc deficiency. Colonoscopy [place] [address] Diego showed few minor diverticula noted. Otherwise, the examination was normal. Repeat colonoscopy was advised in 7 years - due 2022. 04/2023 Stool cologuard test ordered due to low EF of 35 - 40% and has not been submitted yet. 10/11/23 Pt complained of abdominal bloating - possibly due to malabsoprtion or small bowel bacterial overgrowth. She was advised to: 1. Have labs and stool tests to rule out pancreatic insufficiency 2. Take Citrucil twice a day and continue taking the Probiotics. 3. Avoid gas-producing foods (eg, cabbage, legumes, onions, broccoli, brussel sprouts, wheat, and potatoes If above is not helpful, you can start a FODMAP diet 12/13/23 the antibiotic helped me a great deal Feels her symptoms are beginning to come back Has been the worst thing that has affected her. Pt was advised to avoid foods precipitating her symptoms. Use dorian tea and peppermint oil. 01/[address] scan showed: A cause for the patient's small intestinal bacterial overgrowth has not been found. Incidental note made of nonobstructing bilateral small renal calculi and degenerative changes L5-S1 with grade 1 anterolisthesis. Stool Cologuard test was negative and stool fat was normal [place] with antibiotics for suspected SIBO in 2- 3 months if symptoms become worse Pt advised to take Miralax three times a day - once a week to empty out her colon. 03/20/24 Takes Miralax daily. Has been taking Culturelle and plans to take Align for the next few months She would like to do the breath test. 07/24/24 Took antibiotics and have diarrhea towards the end - resolved. Flare up makes her constipated. Notes partial improvement after antibiotics. Feels she is unable to get rid of all the stool. Cut out dairy and fructose from her diet. Unable to take the breath test for SIBO She was unable to take augmetin due to diarrhea 11/27/24 Taking Rifaximin and has 2 more days. She was taking regular milk and switched to Lactaid milk in tea. Had been eating apple pie and taken it away Cant handle anything with sugars in it Antibiotics help her symptoms and do not resolve completely with antibiotics. Pt advised to continue eliminating foods which lead to symptoms from her diet and take antibiotics every 4 to 6 months 04/02/25 Pt would like to try a shorter course of Rifaximin - advised to take a 10 day course followed by 7 day course of Rifaximin. Try sauerkraut and aniseed for bloating. Follow-up appointment in 4 months Coding Level of Care Code Est Pt Level 4 (33406) Diagnoses Vitamin B12 deficiency E53.8 Chronic constipation K59.09 Colon cancer screening Z12.11 Abdominal bloating R14.0 Time Spent (min) 22
--- OUTSIDE RECORDS SUMMARY | 2025-04-02 08:31 | XMS_ITS | Data Portability ---
Author Organization [facility] Address [address] [place] [address] Care Team Providers Care State Appellate Clerk Name Role Phone ALISHA FATIMA Primary Care Provider [phone] Assessment No assessment recorded. Plan of Treatment Reminders Order Date Submit Date Provider Last Modified By Organization Details Last Modified Time Details Appointments None recorded. Lab urinalysis , dipstick 2021 [email or web address] [id number], [address] [place] [address], [id number], 12:59:57 culture, urine 2021 [place] [facility], [address] [place] [address], [place], [address], 06:07:15 Referral None recorded. Procedures None recorded. Surgeries None recorded. Imaging None recorded. Medication Orders Macrobid 100 mg capsule 2021 [facility][id number], [address] , [place], [address], 13:14:53 Patient TargetsNo targets recorded. Patient Instructions Encounter Date Encounter Id Patient Instructions Last Modified By Organization Details Last Modified Time 10/28/2022 [id number] Urinary Tract Infection (UTI) in Women: Care Instructions [email or web address] Not available 10/28/2022 12:58:38 Reason for Referral None Reported. Results Created Date Observation Date Name Description Value Unit Range Abnormal Flag Note LastModifiedBy Organization Detail LastModifiedTime 10/28/20 22 10/31/2022 URINE CULTU RE, SUZANNE NE urine culture, routine FINAL REPORT abnormal Not Available [facility] ([facility]) [address] [facility], [place], [address], 11/01/2022 06:07:15 10/28/20 22 10/31/2022 URINE CULTU [...] [facility] ([facility]) [address] [facility], [place], [address], 11/01/2022 06:07:15 10/28/20 22 10/28/2022 urina lysis , dipst ick Unknown Analyte Light Yellow Not Available [facility] [address] [facility] [place], [address], 10/28/2022 12:32:36 10/28/20 22 10/28/2022 urina lysis , dipst ick Unknown Analyte Slight ly Cloudy Not Available [facility] [address] [place], [address], 10/28/2022 12:32:36 10/28/20 22 10/28/2022 urina lysis , dipst ick Unknown Analyte Negati ve Not Available [facility] [address] [facility] [place], [address], 10/28/2022 12:32:36 10/28/20 22 10/28/2022 urina lysis , dipst ick Unknown Analyte Negati ve Not Available susana christopher [address], [place], [address], 10/28/2022 12:32:36 10/28/20 22 10/28/2022 urina lysis , dipst ick Unknown Analyte Negati ve Not Available susana christopher [address], [place], [address], 10/28/2022 12:32:36 10/28/20 22 10/28/2022 urina lysis , dipst ick Unknown Analyte 1.015 Not Available [facility] [address] [place], [address], 10/28/2022 12:32:36 10/28/20 22 10/28/2022 urina lysis , dipst ick Unknown Analyte Large Not Available _ [facility] [place], [address], 10/28/2022 12:32:36 10/28/20 22 10/28/2022 urina lysis , dipst ick Unknown Analyte 6.5 Not Available [facility] [address] [place], [address], 10/28/2022 12:32:36 10/28/20 22 10/28/2022 urina lysis , dipst ick Unknown Analyte Negati ve Not Available susana christopher [address] [place], [address], 10/28/2022 12:32:36 10/28/20 22 10/28/2022 urina lysis , dipst ick Unknown Analyte 0.2 E.U./d L Not Available susana christopher [address] [place], [address], 10/28/2022 12:32:36 10/28/20 22 10/28/2022 urina lysis , dipst ick Unknown Analyte Negati ve Not Available susana christopher [address] [place], [address], 10/28/2022 12:32:36 10/28/20 22 10/28/2022 urina lysis , dipst ick Unknown Analyte Small Not Available fredrick [address] [place], [address], 10/28/2022 12:32:36 10/28/20 22 10/28/2022 urina lysis , dipst ick Unknown Analyte Normal = light yellow Not Available susana christopher [address] [place], [address], 10/28/2022 12:32:36 10/28/20 22 10/28/2022 urina lysis , dipst ick Unknown Analyte Normal = clear Not Available susana christopher [address] [place], [address], 10/28/2022 12:32:36 10/28/20 22 10/28/2022 urina lysis , dipst ick Unknown Analyte Normal = negati ve Not Available susana christopher [address] [place], [address], 10/28/2022 12:32:36 10/28/20 22 10/28/2022 urina lysis , dipst ick Unknown Analyte Normal = Negati ve Not Available susana christopher [address] [place], [address], 10/28/2022 12:32:36 10/28/20 22 10/28/2022 urina lysis , dipst ick Unknown Analyte Normal = Negati ve Not Available susana christopher [address] [place], [address], 10/28/2022 12:32:36 10/28/20 22 10/28/2022 urina lysis , dipst ick Unknown Analyte Normal = 1.010, 1.015, 1.020 Not Available susana christopher [address] [place], [address], 10/28/2022 12:32:36 10/28/20 22 10/28/2022 urina lysis , dipst ick Unknown Analyte Normal = Negati ve Not Available susana [address]opher [address] [place], [address], 10/28/2022 12:32:36 10/28/20 22 10/28/2022 urina lysis , dipst ick Unknown Analyte Normal = 6.5, 7.0, 7.5, 8.0 Not Available susana christopher [address] [place], [address], 10/28/2022 12:32:36 10/28/20 22 10/28/2022 urina lysis , dipst ick Unknown Analyte Normal = Negati ve Not Available susana christopher [address] [place], [address], 10/28/2022 12:32:36 10/28/20 22 10/28/2022 urina lysis , dipst ick Unknown Analyte Normal = 0.2, 1.0 Not Available susana christopher [address] [place], [address], 10/28/2022 12:32:36 10/28/20 22 10/28/2022 urina lysis , dipst ick Unknown Analyte Normal = Negati ve Not Available susana christopher [address] [place], [address], 10/28/2022 12:32:36 10/28/20 22 10/28/2022 urina lysis , dipst ick Unknown Analyte Normal = Negati ve Not Available [address] [place] [address], [address], 10/28/2022 12:32:36 Result Notes None recorded. Problems Name Problem SNOMED Code Status Onset Date Resolution Date Notes Provider Name and Address Organization Details Recorded Time Raynaud's disease 371396286 Active 022 ANNALEE LUPICA null, [place] - [facility] 12:40:55 Heart failure 51998405 Active LBBB ANNALEE LUPICA null, [place] - [facility] 12:41:14 Multiple sclerosis 22974769 Active ANNALEE LUPICA null, [place] - [facility] 12:41:24 Problem Notes None recorded. Medical Equipment None Reported. Allergies Allergen ID Allergen Name Allergen Category Reaction Reaction Severity Criticality Documentation Date Start Date Code Code System Note Provider Name and Address Organization Details Recorded Time 78379 cephalexi n medicatio n Not available Not available Not available 10/28/2022 2231 RxNorm ANNALEE LUPICA null, [place] - [facility] 2 12:35:29 25244 Ceftin medicatio n Not available Not available Not available 10/28/2022 33705 6 RxNorm ANNALEE LUPICA null, [place] - [facility] 2 12:35:37 90613 Cefzil medicatio n Not available Not available Not available 10/28/2022 26930 1 RxNorm ANNALEE LUPICA null, [place] - [facility] 2 12:35:45 73574 Lamisil medicatio n Not available Not available Not available 10/28/2022 09876 6 RxNorm ANNALEE LUPICA null, [place] - [facility] 2 12:35:53 02087 Prevacid medicatio n Not available Not available Not available 10/28/2022 66019 RxNorm ANNALEE LUPICA null, [place] - [facility] 2 12:36:01 46165 lisinopri l medicatio n Not available Not available Not available 10/28/2022 74932 RxNorm ANNALEE ALONSO null, PA - [facility] 2 12:36:11 11885 metoprolo l Not available Not available Not available Not available 10/28/2022 6918 RxNorm ANNALEE AGUIRREICA null, PA - [facility] 2 12:36:20 85671 losartan medicatio n Not available Not available Not available 10/28/2022 05191 RxNorm ANNALEE ALONSO null, [place] - [facility] 2 12:36:29 57799 Entresto medicatio n Not available Not available Not available 10/28/2022 79480 41 RxNorm ANNALEE ALONSO null, [place] - [...] Last Updated DateTime 154.94 cm 20.4 kg/m2 57256.9 8 g 97.3 [degF] 98 % 98 % 68 /min 16 /min 145 mm[Hg] 83 mm[Hg] ANNALEE ALONSO [facility] [employer] [facility] 12:44:41 Social History Question Answer Notes LastModified by Red Butler Details LastModified Time Tobacco Smoking Status Former Smoker ANNALEE [facility] [employer] 10/28/2022 12:42:20 Have You Recently Traveled Abroad? No [email or web address] Information not available 10/28/2022 Sex: Unknown Functional Status Question Answer Note LastModified by Red Butler Details LastModified Time Do you use any illicit or recreational drugs? No [email or web address] Information not available 10/28/2022 Do you or have you ever used any other forms of tobacco or nicotine? No [email or web address] Information not available 10/28/2022 What is your level of alcohol consumption? None Information not available 10/28/2022 Mental Status None recorded. Family History Relationship Description Onset Age of this Age Resolved Age Notes LastModified by Organization Details LastModified Time Father No current problems or disability [email or web address] Not available 10/28 12:41:59 Mother No current problems or disability [email or web address] Not available 10/28 12:41:59 Medical History No medical history recorded. Gynecological HistoryNo gynecological history recorded. Obstetrics History GPAL:G 0 P 0 0 0 0 Past Encounters Encounter ID Performer Location Encounter Start Date Encounter Closed Date Diagnosis/Indication Diagnosis SNOMED-CT Code Diagnosis ICD10 Code Diagnosis Note [id number] [facility] [place] [address] 07/06/2015 12:45:23 07/06/2015 13:45:33 [id number] [facility] [address] [place] [address] 09/01/2016 19:40:14 09/01/2016 20:07:17 [id number] [facility] [address] [address] [place] [address] 10/28/2022 11:21:02 10/28/2022 13:15:38 Urgent desire to urinate 08320457 R39.15 Health Concerns Section Related Observation LastModified by Organization Detai ls LastModified Time None Recorded Concern Status LastModified by Organization Details LastModified Time None Recorded Advance Directives Directive None Recorded Payers Insurance Date Sequence Insurance Name Policy Number Policy Champion Covered Member ID Champion Member ID Guarantor Name 01/12/[address] [facility] [id number] Orly Lagos Staceyryan [id number] Orly Javier Notes Date Note Type Note Provider Name and Address Organization Details Recorded Time 10/28/2022 text/html Orly is a 62 yo F here for evaluation of urinary urgency and discomfort since yesterday. Discomfort described as pressure in the bladder, not painful urination. Called PCP this morning because sx were worsening and was told to come in to UC to check for UTI. Has had UTIs [...] but would like to try that instead. CAM MARSHALL [address], [place], [address], [place] - [facility] 10/28/2022 13:16:32 OBGyn Episode No OBEpisode recorded.
== END 2025-04-02 09:12 | disposition home or self-care (01) ==
LOC: HO.HGI 08:22
PROVIDERS: Visit Provider Internal Medicine Gastroenterology
DX: E53.8 Deficiency of other specified B group vitamins (principal); K59.09 Other constipation; R14.0 Abdominal distension (gaseous)
CPT/HCPCS: 99214